=== PATIENT | male | born 1960 | race Caucasian/White ===

== ENCOUNTER 2017-01-09 09:38 | Day surgery (SDC) | payer OTHER ==
[2017-01-09] VITALS (7 sets, daily range): BP systolic 115–133; BP diastolic 75–80; PULSE 60–72; TEMP 36.4–37.2; O2SAT 93–97; Ht 177.8 cm; Wt 70.4 kg
[~2017-01-09] VITALS: Ht 177.8 cm; Wt 70.4 kg
--- NOTE | 2017-01-09 08:36 | History and Physical ---
History & Physical Date of Service Jan 09, 2017. History & Physical CC: Severe claudication of the left lower extremity HPI: [facility] Mr. Rajiv Van is being followed for his peripheral arterial disease, and he underwent a right common femoral endarterectomy in March 2006 due to rest pain in his right lower extremity. He returns today for a routine 6-month followup with ultrasound. 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 He does state that he continues to have 60-yard claudication in his left leg where he can walk for about 60 yards and then walk a little bit after this, but then has to rest for about 20-30 minutes before his calf stops causing him pain. He states this is interfering with his activities of daily living. He denies any rest pain or tissue loss. He denies any stroke or TIA like symptoms. He denies any new abdominal or back pain. ALLERGIES: None known. MEDICATIONS: Positive for aspirin, indomethacin, lisinopril, Nexium, Norvasc, tramadol, Tricor. PAST MEDICAL HISTORY: Positive for coronary occlusive disease with coronary artery stenting, stroke, hypertension. PAST SURGICAL HISTORY: Cardiac stenting. FAMILY HISTORY: Positive for heart disease, diabetes, cancer and stroke. SOCIAL HISTORY: He quit smoking in November of this year. He drinks occasionally. REVIEW OF SYSTEMS: Review of 10 systems was asked. Positive findings included intolerance to heat, occasional chest pain, shortness of breath, gout, heartburn , loss of appetite, hiatal hernia, constipation and occasional blood in the stool. The rest of the positive findings are in the HPI. On physical exam, vital signs, heart rate is 58, blood pressure is 134/88, respiratory rate is 18. This is a 56-year-old male, in no acute distress. Head is normocephalic, atraumatic. Extraocular movements are intact. Heart has regular rate and rhythm. Lungs: Clear to auscultation. Abdomen: Soft, nontender, nondistended. He has palpable bilateral femoral pulses, right greater than left. He has nonpalpable distal pulses. He has dopplerable PT and AT, though the left side is weaker than the right. No focal deficits. Imp: Left superficial femoral artery occlusion Severe claudication left leg Plan: Patient is admitted for arteriography and possible intervention. I have discussed the risks options and benefits of the procedure with the patient. The patient understands the risks options and benefits and agrees to the procedure.
[~2017-01-09 09:38] MED LIST: AMLO-110 PO; CEFAZOLIN 1000MG/55 ML D5W IV SCH; FENO145T26 PO; LISI20TA3 PO; OMEP40CA PO; OXYC5TAB PO; SODIUM CHLORIDE 0.9% 1000ML IV SCH; TRAM-10 PO
[2017-01-09] MEDS ORDERED: NIFE60TA57 PO (10:31)
[2017-01-09 11:09] LABS: CREATININE 1.5 mg/dl (0.60-1.40)
[2017-01-09] MEDS ORDERED: FENTANYL CITRATE INJ 50 MCG/1 ML 2 ML VIAL ONE ×2 (12:24→13:55)
[2017-01-09] MEDS ORDERED: MIDAZOLAM HCL 1 MG/ML 2ML VIAL ONE ×2 (12:25→13:49)
--- NOTE | 2017-01-09 12:38 | Procedure Note ---
Pre-Mod Sedation Assessment General Date of Moderate Sedation: Jan 09, 2017. Vital Signs: Vital Signs Past 12 Hours Date Time Temp Pulse Resp B/P (MAP) Pulse Ox O2 Delivery O2 Flow Rate FiO2 01/09/17 12:34 37.2 72 20 115/80 97 Room Air 01/09/17 10:35 37.2 72 20 115/80 (92) 97 Room Air Pre-Sedation Airway Assessment Oral Cavity: Loose Teeth, Dentures Short Thick Neck: No Hx of Sleep Apnea: No Smoking Status: Former Smoker Mallampati Classification: Class I ASA Classification: Class III Notes The planned sedation has been discussed with the patient and consent obtained. I have identified the patient, determined the appropriateness of sedation and have assessed the patient immediately prior to the procedure. All medicine(s) and interventions are by my order.
--- NOTE | 2017-01-09 12:38 | History & Physical Bridge Note ---
H&P Re-Evaluation Bridge Note: I have examined the patient, reviewed the History & Physical and in the interval since the performance of the History & Physical I have noted the following changes of clinical significance: No changes noted
[2017-01-09] MEDS ORDERED: HEPARIN SOD (PORCINE) 1000 UNIT/ML 10 ML VIAL ONE (12:41)
[2017-01-09] MEDS ORDERED: MIDAZOLAM HCL 1 MG/ML 2ML VIAL IV ONE ×3 (12:56→13:48)
[2017-01-09] MEDS ORDERED: FENTANYL CITRATE INJ 50 MCG/1 ML 2 ML VIAL IV ONE ×3 (12:56→13:57)
[2017-01-09] MEDS ORDERED: LIDOCAINE HCL 1% 20 ML VIAL INJ ONE (13:00)
[2017-01-09] MEDS ORDERED: HEPARIN SOD (PORCINE) 1000 UNIT/ML 10 ML VIAL IV ONE (13:16)
[2017-01-09] MEDS ORDERED: CLOPIDOGREL BISULFATE 300 MG TAB PO STA (14:07)
[2017-01-09] MEDS ORDERED: CLOP1TAB5 PO (14:09)
[2017-01-09] MEDS ORDERED: IODIXANOL (VISIPAQUE) 270 MG/ML 150ML FLUSH ONE (14:11)
[2017-01-09] MEDS ORDERED: OXYCODONE/ACETAMINOPHEN 5-325 TAB PO PRN (14:15)
--- NOTE | 2017-01-09 14:31 | Procedure Note ---
Post-Moderate Sedation Plan General Date of Moderate Sedation Jan 09, 2017. Vital Signs: Vital Signs Past 12 Hours Date Time Temp Pulse Resp B/P (MAP) Pulse Ox O2 Delivery O2 Flow Rate FiO2 01/09/17 12:34 37.2 72 20 115/80 97 Room Air 01/09/17 10:35 37.2 72 20 115/80 (92) 97 Room Air Review - Discharge Plan Post Moderate Sedation Plan: On clinical assessment, the patient appears to have tolerated the conscious sedation without complications. Patient is recovering as anticipated. Patient will continue to be monitored by nursing and may be discharged when conscious sedation discharge criteria are met.
--- NOTE | 2017-01-09 14:31 | [facility] Post Operative Brief Note ---
Immediate Operative Summary Operative Date Jan 09, 2017. Pre-Operative Diagnosis left superficial femoral artery occlusion Post-Operative Diagnosis same Procedure(s) Performed Left Lower Extremity Angiogram, Percutaneous Transluminal Angioplasty Left Superficial Femoral Artery, Moderate Concious Sedation [address] Castrejon Instrument Assembler Surgeon(s) Calderon Griggs MD 5th vascular surgery resident Estimated Blood Loss 10 ml Findings palp PT post CLINIC SPECIALIST Specimens none Anesthesia Local with sedation Complication(s) None Disposition
--- NOTE | 2017-01-09 14:32 | Discharge Instructions ---
Discharge Instructions Date of Service Jan 09, 2017. Visit Reason for Visit: Left Lower Extremity Claudication Discharge Discharge Diagnosis / Problem: Left superficial femoral artery occlusion Discharge Goals Goal(s): Therapeutic intervention Activity Recommendations Activity Limitations: per Instructions/Follow-up section Anesthesia . Post Anesthesia Instructions: If you have had General Anesthesia or IV Sedation: * Do not drive today. * Resume driving when surgeon permits. * Do not make important decisions or sign legal documents today. * Call surgeon for: 1. Temperature elevations greater than 101 degrees F. 2. Uncontrollable pain. 3. Excessive bleeding. 4. Persistent nausea and vomiting. 5. Medication intolerance (nausea, vomiting or rash). * For nausea and vomiting use only clear liquids such as: tea, soda, bouillon until nausea subsides, then gradually increase diet as tolerated. * If you have any concerns or questions, call your surgeon's office. If physician is unavailable and it is an emergency, call 911 or go to the nearest emergency room. . Instructions / Follow-Up Instructions / Follow-Up Call [phone] to schedule a follow up appointment if one not already scheduled. SPECIAL CARE INSTRUCTIONS: Medications: * Continue to take your medications as directed. If you have been given a prescription for Plavix, please fill it immediately and take as directed. Incision Care: * Your puncture site may have some bruising and minor swelling for about one week. * You will have a small dressing covering your puncture site. You may remove the dressing after 24 hours and shower. You may let the warm soapy water run over it, but be sure to dry the puncture site well and keep it dry. * DO NOT IMMERSE THE INCISION IN A TUB/POOL/etc. UNTIL HEALED. * Puncture sites should be kept covered with a band-aid until it begins to heal. Restrictions: * Depending on whether you leg or arm was punctured to access the arteries, you will be required to lay flat, hold your arm still, or both, for about 4 hours after the procedure to prevent bleeding. * Limit your activity for the first 48 hours. You may walk and go up and down steps. Avoid excessive bending or movement at the puncture site. Possible Complications: * Excessive Swelling - after blood flow is improved you may notice increased swelling in the lower legs. This is a normal response. This usually depends on the amount of blockages in the leg, how long they have been there prior to your procedure and how much blood flow was restored. Elevating your legs will help to improve this. Please notify our office ([phone] ) if the swelling does not go away after lying in bed overnight. * Infection/Drainage/Bleeding - Drainage or bleeding from the puncture site should be minimal. If you have excessive bleeding or drainage, call our office ([phone]) right away. * Pain - You may experience some mild pain or soreness at your puncture site. If your pain does not improve, please contact our office ([phone]). Call your doctor and seek emergent treatment if you develop: * Temperature above 101 degrees * Any fever or chills * Any redness or purulent drainage from the puncture site * Any new dusky/blue colored toes or feet with coolness or sharp or aching pain. SKIN IRRITATION: * You may experience some redness and/or swelling in the area where radiation was administered. If any skin irritation occurs, please contact your family physician. FOLLOW UP VISIT: Keep any scheduled doctor appointments. Diet Recommendations Recommended Home Diet: resume previous diet Procedures Procedures Performed: Left Lower Extremity Angiogram, Percutaneous Transluminal Angioplasty Left Superficial Femoral Artery, Moderate Concious Sedation 1256 to 1424 Pending Studies Studies pending at discharge: no Medical Emergencies . Who to Call and When: Medical Emergencies: If at any time you feel your situation is an emergency, please call 911 immediately. . Non-Emergent Contact Non-Emergency issues call your: Surgeon . . "Provider Documentation" section prepared by Efren Castrejon. .
--- NOTE | 2017-01-09 15:07 | DIAGNOSTIC IMAGING REPORT ---
DATE OF PROCEDURE: 01/09/2017 PREOPERATIVE DIAGNOSIS: Left lower extremity claudication. POSTOPERATIVE DIAGNOSIS: Same. PROCEDURE: 1. Ultrasound guided access of the right femoral artery. 2. Left lower extremity angiogram. 3. SFA angioplasty with 6 x 40 mm balloon and 7 x 80 mm balloon. 4. Conscious sedation for 86 minutes . SURGEON: Dr. Efren Castrejon. LYE PEEL OPERATOR: Dr. Jessica Griggs. ANESTHESIA: Local plus conscious sedation. ESTIMATED BLOOD LOSS: 10. IV FLUIDS: 400. URINE OUTPUT: Not recorded. CONTRAST: 48 mL. Milligray 75. Fluoro time 9.3 minutes. COMPLICATIONS: None apparent. CONDITION: Stable to PACU. INDICATIONS: Mr. Van is a very pleasant 56-year-old male who presented to the office with complaints of left lower extremity claudication interfering with his daily activities. He underwent a duplex which showed SFA disease. He was advised of the risks and benefits of undergoing an angiogram and agreed to undergo procedure. PROCEDURE: The patient was brought into the operative suite. He was prepped and draped in the usual fashion. A timeout occurred. Ultrasound was used to identify his common femoral artery. This was widely patent. This was accessed percutaneously under ultrasound guidance. A 5 Turkmen sheath was then placed and an angled Glidewire and rim catheter were used to cross the bifurcation. Left lower extremity angiogram was obtained showing widely patent left common iliac, left internal and external iliac, left common femoral artery. There were was an area of focal stenosis proximally and distally and a focal occlusion in the mid SFA. The popliteal artery was patent. TP trunk was patent. Anterior tibial artery occluded proximally. PT arteries main runoff to the foot. At this time, the patient was heparinized with 5000 units of heparin and the sheath was upsized for a 6 45 mm destination sheath. A 6 x 40 balloon was used to angioplasty despite stenosis in the SFA. This resulted in improvement of the flow and resolution of the distal stenosis. There was still some residual stenosis in the proximal part of the SFA and a 7 x 80 balloon was used to angioplasty these. Upon completion, there was brisk flow through the SFA. Small dissection noted in the mid SFA, but not flow limiting and brisk flow distally. At this time, an ACT was obtained which demonstrated an ACT of 158. All sheaths and wires were removed and pressure was held for 15 minutes and hemostasis was obtained. The patient tolerated the procedure well and was transferred to the PACU in stable condition. Dr. Efren Castrejon was present for the entirety of this case. I, Dr. Castrejon was present and scrubbed for the entire procedure. LUCÍA
== END 2017-01-09 17:02 | disposition home or self-care (01) ==
LOC: C.ACU 09:38
PROVIDERS: ATTEND Surgery Vascular Surgery
DX: I77.1 Stricture of artery (principal); I73.9 Peripheral vascular disease, unspecified; I25.10 Atherosclerotic heart disease of native coronary artery without angina pectoris; Z95.818 Presence of other cardiac implants and grafts; I10 Essential (primary) hypertension; Z86.73 Personal history of transient ischemic attack (TIA), and cerebral infarction without residual deficits; Z79.82 Long term (current) use of aspirin; Z87.891 Personal history of nicotine dependence

== ENCOUNTER 2020-12-05 06:19 | Inpatient (IN) ==
--- NOTE | 2020-11-29 14:09 | PAT Medication Instructions ---
Medication Instructions Date of Service November 29, 2020 Home Medications Marijuana 1 inh INHALATION DAILY Vitamin D 1 tab PO QAM atorvastatin 40 mg tablet (Lipitor) 40 mg PO QAM clopidogrel 75 mg tablet (Plavix) 75 mg PO QAM lisinopril 2.5 mg tablet 2.5 mg PO QAM pantoprazole 20 mg tablet,delayed release 20 mg PO DAILY PRN ASK your prescriber and surgeon clopidogrel 75 mg tablet (Plavix) 75 mg PO QAM DO NOT take the morning of surgery Marijuana 1 inh INHALATION DAILY Vitamin D 1 tab PO QAM lisinopril 2.5 mg tablet 2.5 mg PO QAM Take morning of surgery With a small sip of water, OTHERWISE NOTHING TO EAT OR DRINK AFTER MIDNIGHT: atorvastatin 40 mg tablet (Lipitor) 40 mg PO QAM pantoprazole 20 mg tablet,delayed release 20 mg PO DAILY PRN (if needed) Other Notes If you have any questions please call us at [phone] or [phone] or or [phone]
--- NOTE | 2020-12-03 15:48 | Anesthesiology Consultation ---
Date of Service December 03, 2020 Assessment & Plan (1) Encounter for pre-operative examination: - COVID screening: Per assessment on 12/03: Travel screen negative, no known COVID-19 positive contacts or current COVID-19 related symptoms. Surgeon arrang ed preop COVID testing (being done at [facility] 12/03). Awaiting results. - Plavix instructions per surgeon/prescriber - ETOH use: 4-5 beers/day (typically afternoon/night) Chart Review Chart Review: Acceptable Risk for Surgery and Patient seen in Pre Admission Testing Teaching & Discussion Pre-Anesthesia Teaching/Discussion Notes: Instructed NPO after midnight before surgery,except medications with 15 cc of water. Medication instructions pr ovided according to the [facility] guidelines. History Surgery Operation Date: 12/05/20 12:10 Proposed Procedures p Left Common Femoral Artery Endarterectomy ULTRASOUND TECH Stent Bilateral Iliac Arteries, Arteriogram Bilateral Lower Ext. With Possible Iliac Intervention - Efren Castrejon MD Height/Weight Height: 5 ft 10 in Weight: 72.5 kg Allergies Allergy/AdvReac Type Severity Reaction Status Date / Time No Known Allergies Allergy Verified 11/28/20 13:11 Medications Home Medications Medication Instructions Recorded Confirmed Last Taken Marijuana 1 inh INHALATION DAILY 11/28/20 11/28/20 Unknown Vitamin D 1 tab PO QAM 11/28/20 11/28/20 Unknown atorvastatin 40 mg tablet (Lipitor) 40 mg PO QAM 11/28/20 11/28/20 Unknown clopidogrel 75 mg tablet (Plavix) 75 mg PO QAM 11/28/20 11/28/20 Unknown lisinopril 2.5 mg tablet 2.5 mg PO QAM 11/28/20 11/28/20 Unknown pantoprazole 20 mg tablet,delayed 20 mg PO DAILY PRN 11/28/20 11/28/20 Unknown release Past Medical History Medical History CAD (coronary artery disease) stents x2 2006 (LIZ tp Lcx, POM3) stents x1 2008 (mid OM3) No longer following with cardio, good functional status at [facility] visit 12/03/20 with no cardiopulmonary complaints and recent echo done 07/2020 GERD (gastroesophageal reflux disease) Controlled Gout Hx Hyperlipidemia Hypertension LBBB (left bundle branch block) Chronic dating back to at least 03/24/2016 EKG (scanned into [employer]), Moderate IVCD noted on 08/07/15 with unremarkable echo/stress testing 08/08/15 Exercise / Class Metabolic Activity II 4-5 Yardwork/Stairs/Walk up hill (one FS (no CP, no SOB)) Past Family History Family History Father Family history of diabetes mellitus Uncle Family hx of colon cancer Past Surgical History Surgical History History of cardiac cath Stents x 3 total (stent x1- 2008, stents x2- 2006) History of cataract surgery R/L History of colonoscopy History of esophagogastroduodenoscopy (EGD) History of vascular surgery RLE (2015) Past Anesthesia History No Family Hx of Anesthesia Complications and Other (Post-op urinary retention with remote surgery requiring temporary catheter) History of PONV No Hx of PONV and No Hx of Motion Sickness Social History Smoking Status: Former smoker Do You Dip or Chew Tobacco: No Smoking End Date: Quit 2015 Hx Alcohol Use: Yes Alcohol type: beer alcohol intake frequency: 3 or more drinks per day (4-5 beers/day (typically afternoon/night)) Hx Substance Use: Yes substance use type: marijuana (Occasionally + weekends (inhalation)) Review of Systems Patient denies chest pain, shortness of breath, dyspnea on exertion, fever, chills, cough, wheezing, palpitations. Physical Exam Vital Signs VITALS BP 143/89 P 76 TEMP 98.1 SP02 96%RA RESP 18 PHYSICAL Full cervical extension range of motion. Full TMJ range of motion. TMD 4 finger breaths Mallampati Score 3 Dentition: + dentures, no edentulous Lungs: clear throughout to auscultation Cardiac: regular rate and rhythm, no murmurs noted Spine: normal Carotid arteries: negative bruit Extremities: no edema Lab Results Anesthesia Preop Results Results Anesthesia Widget: WBC 5.95 K/uL (4.8-10.8) 12/03/20 Hgb 14.0 g/dL (14.0-18.0) 12/03/20 Hct 41.2 % (42-52) L 12/03/20 Plt 210 K/uL (130-400) 12/03/20 Na 132 mmol/L (136-145) L 12/03/20 K 3.8 mmol/L (3.5-5.1) 12/03/20 Cl 100 mmol/L (98-107) 12/03/20 CO2 20 mmol/L (21-32) L 12/03/20 BUN 16 mg/dl (7-18) 12/03/20 Creat 1.11 mg/dl (0.6-1.4) 12/03/20 Glucose Level 108 mg/dl (70-99) H 12/03/20 PT 10.9 Seconds (9.0-12.0) 12/03/20 PTT 27.1 Seconds (21.0-31.0) 12/03/20 INR 1.1 (0.9-1.1) 12/03/20 Blood Type A Positive 12/03/20 Antibody Screen NEGATIVE 12/03/20 Testing Electrocardiogram Date: 12/03/20 NSR at 71bpm. NS IVCD. unconfirmed report. Hx of LBBB dating back to at least 03/24/16 EKG. Also noted on 06/2020 EKG from PCP (scanned into [employer]). Pt had subsequent unremarkable echo 07/25/20. Chest X-Ray Date: 12/03/20 Findings: + NAD Echocardiogram Date: 07/25/20 EF 55 to 60%. No chamber enlargement. Diastolic Doppler mitral inflow patterns consistent with abnormal relaxation. No significant valvular disease. Mild concentric LVH. Stress Test Date: 08/08/15 No stress EKG/ECHO induced ischemic changes. EF 40%.
[~2020-12-05 06:19] MED LIST changes: -AMLO-110 PO; +CEFAZOLIN 1,000 MG/7.5 ML SYR IV SCH; -CEFAZOLIN 1000MG/55 ML D5W IV SCH; -FENO145T26 PO; -LISI20TA3 PO; -OMEP40CA PO; -OXYC5TAB PO; -SODIUM CHLORIDE 0.9% 1000ML IV SCH; -TRAM-10 PO
[2020-12-05] MEDS ORDERED: SUGAMMADEX SODIUM 200 MG/2 ML VIAL IV ONE (06:31)
--- NOTE | 2020-12-05 07:19 | History & Physical Report ---
Date of Service December 05, 2020 Assessment & Plan (1) Claudication in peripheral vascular disease: Plan: Patient for a left femoral endarterectomy with possible iliac stenting. I have discussed the risks options and benefits of the procedure with the patient. The patient understands the risks options and benefits and agrees to the procedure. History of Present Illness Chief Complaint: Significant claudication of both lower extremities Primary Care Provider: Mckay Marin This is a very pleasant 60-year-old gentleman with a history of right common femoral endarterectomy back in 2017. He presents for followup and to discuss the findings of his CT angio of abdomen and pelvis with runoff to the legs. He indicates that he continues to have short distance claudication affecting mostly the calves, but also the thighs and buttocks of the bilateral legs. His symptoms come on after just a few minutes of walking on flat surfaces. If he is climbing, the symptoms come on sooner. These are affecting him to an extent that they are prohibiting him from completing activities that he would like to do in his life. He also describes some chronic numbness and feeling as though his feet are in ice blocks. This is affecting the bilateral feet. He has no weakness of the bilateral feet. He has had no wounds of the bilateral feet. He continues to take Plavix. Allergies Allergy/AdvReac Type Severity Reaction Status Date / Time No Known Allergies Allergy Verified 11/28/20 13:11 Home Medications Medication Instructions Recorded Confirmed Type Marijuana 1 inh INHALATION DAILY 11/28/20 11/28/20 History Vitamin D 1 tab PO QAM 11/28/20 11/28/20 History atorvastatin 40 mg tablet (Lipitor) 40 mg PO QAM 11/28/20 11/28/20 History clopidogrel 75 mg tablet (Plavix) 75 mg PO QAM 11/28/20 11/28/20 History lisinopril 2.5 mg tablet 2.5 mg PO QAM 11/28/20 11/28/20 History pantoprazole 20 mg tablet,delayed 20 mg PO DAILY PRN 11/28/20 11/28/20 History release Past Med/Surg History Medical History CAD (coronary artery disease) stents x2 2006 (LIZ tp Lcx, POM3) stents x1 2008 (mid OM3) No longer following with cardio, good functional status at PAT visit 12/03/20 with no cardiopulmonary complaints and recent echo done 07/2020 GERD (gastroesophageal reflux disease) Controlled Gout Hx Hyperlipidemia Hypertension LBBB (left bundle branch block) Chronic dating back to at least 03/24/2016 EKG (scanned into [employer]), Moderate IVCD noted on 08/07/15 with unremarkable echo/stress testing 08/08/15 Surgical History History of cardiac cath Stents x 3 total (stent x1- 2008, stents x2- 2006) History of cataract surgery R/L History of colonoscopy History of esophagogastroduodenoscopy (EGD) History of vascular surgery RLE (2015) Family History Father Family history of diabetes mellitus Uncle Family hx of colon cancer Social History Smoking Status: Former smoker Smoking End Date: Quit 2015; Second Hand Exposure: Yes (MOTHER SMOKED); Do You Dip or Chew Tobacco: No; Hx Alcohol Use: Yes Alcohol type: beer Hx Substance Use: Yes Substance Use Type Other:: INHALATION ON WEEKENDS AND DAILY ON OCC Preferred Language: Nepalese Communication Ability: Effective Anger Control Counselor Required: No Beliefs That Will Affect Care: None Current Living Situation: Alone current occupational status: disabled Other Information That Helps Us Care for You: No Feels Safe at Home: Yes Safety Concerns: Feels Safe At This Time Assistive Devices: Denture - Upper Assistive Devices Comment: NO LOWER TEETH Review of Systems All systems reviewed & are unremarkable except as noted in HPI & below Physical Exam Constitutional: WD/WN, vitals as above Respiratory: normal respiratory effort, lungs clear to auscultation Cardiovascular: RRR, no murmur, no edema There is a palpable femoral pulse, which is normal. On the left, there is a faintly palpable femoral pulse. Distally, his pedal pulses are nonpalpable. I am able to obtain bilateral posterior tibial artery signals. He has aforementioned chronic numbness of bilateral feet. Motor is intact in bilateral lower extremities. There are no wounds to the bilateral feet. Gastrointestinal (Abdomen): Inspection/Auscultation: abdomen normal to inspection; abdomen not distended Percussion/Palpation: abdomen soft; abdomen nontender Musculoskeletal: no cyanosis or clubbing, extremities motor strength 5/5 Neurologic: CN's II-XI intact bilaterally and moves all extremities Psychiatric: Orientation: alert and oriented x 3
[2020-12-05] MEDS: LACTATED RINGER'S 1,000 ML IV SCH ×3 (07:53→18:39)
[2020-12-05] MEDS ORDERED: DEXAMETHASONE SOD INJ 4 MG/ML VIAL ONE (09:07)
[2020-12-05] MEDS ORDERED: ROCURONIUM BROMIDE 10 MG/ML 5 ML VIAL IV ONE ×5 (09:07→14:10)
[2020-12-05] MEDS ORDERED: ONDANSETRON INJ 2 MG/ML 2 ML VIAL ONE (09:07)
[2020-12-05] MEDS ORDERED: fentaNYL citrate 100 MCG/2 ML VIAL ONE ×2 (09:07→12:29)
[2020-12-05] MEDS ORDERED: HEPARIN SOD (PORCINE) 1000 UNIT/ML ONE (09:07)
[2020-12-05] MEDS ORDERED: PROPOFOL IV EMULSION 10 MG/ML 20 ML VIAL IV ONE (09:07)
[2020-12-05] MEDS ORDERED: ONDANSETRON INJ 2 MG/ML 2 ML VIAL IV PRN ×2 (09:30→14:57)
[2020-12-05] MEDS ORDERED: LABETALOL HCL IV 5 MG/ML 20ML IV PRN (09:30)
[2020-12-05] MEDS ORDERED: ATROPINE SULFATE 0.1 MG/ML 10ML SYR IV PRN (09:30)
[2020-12-05] MEDS ORDERED: HYDROmorphone INJ 1 MG/ML SYRINGE IV PRN (09:30)
--- NOTE | 2020-12-05 11:10 | History & Physical Bridge Note ---
Date of Service December 05, 2020 History & Physical Bridge Note I have examined the patient, reviewed the History & Physical and in the interval since the performance of the History & Physical I have noted the following changes of clinical significance: no changes noted
[2020-12-05] MEDS ORDERED: HEPARIN (PORCINE) 1000 UNIT/ML 10 ML (CATH LAB USE ONLY) ONE (11:20)
[2020-12-05] MEDS ORDERED: GELATIN SPONGE SZ 100 ONE (11:20)
[2020-12-05] MEDS ORDERED: THROMBIN FOR SOLN 20000 UNIT KIT ONE (11:20)
[2020-12-05] MEDS ORDERED: PAPAVERINE HCL INJ 30 MG/ML 2 ML VIAL ONE (11:21)
[2020-12-05] MEDS ORDERED: EPINEPHrine INJ 1 MG/ML AMP ONE (11:21)
[2020-12-05] MEDS ORDERED: BUPIVACAINE 0.5 % 5 MG/1 ML MPF 30ML VIAL ONE (11:21)
[2020-12-05] MEDS ORDERED: LIDOCAINE 1% LOCAL 20 ML VIAL ONE (11:21)
[2020-12-05] MEDS ORDERED: LABETALOL HCL IV 5 MG/ML 20ML IV ONE (13:00)
[2020-12-05] MEDS ORDERED: PHENYLEPHRINE HCL 10 MG/ML VIAL ONE (13:16)
[2020-12-05] MEDS ORDERED: ePHEDrine sulfate 50 MG/ML SYR ONE (13:16)
[2020-12-05] MEDS ORDERED: VISIPAQUE IV ONE (14:18)
--- NOTE | 2020-12-05 14:42 | Procedure Note ---
Angiogram Post Procedure Fluoroscopy Time (minutes): 0.5 Radiation (mGy): 36.87 Post Operative Report Pre & Post Diagnosis Operation Date: 12/05/20 09:50 Pre-Op Diagnosis: Left Common Femoral Artery Stenosis, Claudication in peripheral vascular disease Post-Op Diagnosis: Left Common Femoral Artery Stenosis, Claudication in peripheral vascular disease I identified the patient and participated in the time-out.: Yes Procedure Operation Date: 12/05/20 09:50 Actual Procedures p Left Common Femoral Artery Endarterectomy with bovine patch, Arteriogram Bilateral Lower femoral (Left) - Efren Castrejon MD Surgeon Efren Castrejon MD [employer] Martha Caal MD ; Ashly Min PA-C Estimated Blood Loss 30 Findings See Below Specimens Left femoral plaque Drains None Anesthesia Type General Complications None immediate Disposition Accompanied Patient To Recovery: No Indications This is a 60-year-old male with peripheral arterial disease, previous right common femoral endarterectomy performed in 2017, and lifestyle limiting bilateral lower extremity claudication which is worse on the left. CT angiography performed preoperatively is notable for significant left common femoral artery stenosis, with atherosclerotic plaque noted in the bilateral external iliac arteries. He presents today for left common femoral endarterectomy and aortoiliac angiography with possible endovascular intervention. Description of Procedure The patient was taken to the operating suite. The patient's identity and surgical procedure were verified. The patient was transferred over to the operating room table and placed in the supine position. The bilateral groins were prepped and draped in the usual sterile fashion. A team timeout was performed including confirmation of the patient's identity, surgical site, and surgical procedure. A longitudinal incision was made in the left groin over the area of the palpable calcified femoral artery. The incision was deepened through the subcutaneous tissue. The left femoral artery was identified and dissected out. Also dissected out were the proximal superficial femoral artery and the origin of the profunda femoris artery. Proximally, our dissection extended to the distal external iliac artery which was visible with retraction of the inguinal ligament; the inguinal ligament remained intact throughout. There was dense calcific plaque through the entirety of the common femoral artery but we dissected out softer areas to clamp in the distal external iliac artery and the superficial femoral artery. Systemic heparinization was performed. Vascular clamps were applied to the distal external iliac artery, superficial femoral artery, and profunda femoris arteries. Branches of the common femoral artery and superficial femoral artery were controlled with silastic vessel loops. A longitudinal arteriotomy was made on the anterior surface of the common femoral artery with 11-blade. This was extended proximally and distally with Joseph scissors. Dense calcific plaque was encountered which was significantly narrowing the lumen of the vessel, in some areas about 80% stenosis but through most of the common femoral artery about 90% stenosis. Using sharp and blunt dissection a plane was created between the plaque and the adventitia of the vessel. The plaque was removed, with some eversion endarterectomy of the origins of the branches of the common and superficial femoral artery and the origin of t he profunda femoris artery. Proximally the bulk of the plaque was removed such that there was no flow-limiting stenosis at the inflow vessel (the distal external iliac artery). The plaque was transected here and distally in the superficial femoral artery. The endarterectomy flap was tacked down at its distal endpoint using interrupted 6-0 prolene sutures. The interior surface of the vessel was irrigated with heparin saline and all loose debris were removed. A bovine pericardial patch was sewn in place using 5-0 prolene in a running fashion. The clamps were removed. Next, a 17G needle was used to access the center of our patch in a retrograde fashion. A J-wire was advanced through the needle. The needle was removed and a 5F sheath was passed over the wire. An angled glidewire was passed under fluoroscopic guidance into the distal aorta. A rim catheter was advanced over the wire. The wire was removed and with hand injection of contrast, AP, AGGARWAL, and GEORGE views were obtained of the distal aorta and bilateral iliacs in their entirety were imaged with angiography. No flow-limiting stenoses of the iliacs were identified. Thus we did not intervene further. Our sheath and catheter were removed from the patch and the access site was repaired with a 5-0 prolene suture. Adequate hemostasis was obtained. The incision was closed with 2-0 vicryl for the subcutaneous tissue, 3-0 vicryl for the dermis, and jamel for the skin. At the conclusion of the case, all instrument, sponge, and needle counts were correct. The patient tolerated the procedure well and without immediate complication. The patient was taken to the recovery room in satisfactory condition. Dr. Castrejon was present and scrubbed for the entirety of the procedure. I attest to the content of the Intraoperative Record and any orders documented therein. Any exceptions are noted below.
[2020-12-05] MEDS ORDERED: MoRPHine SULFATE 4 MG/ML 1 ML CARP\\VIAL IV PRN (14:57)
[2020-12-05] MEDS ORDERED: oxyCODONE/ACETAMINOPHEN 5mg/325mg TAB PO PRN (14:57)
[2020-12-05] MEDS ORDERED: PANTOprazole 40 MG TAB PO PRN (15:03)
--- NOTE | 2020-12-05 15:06 | Post Operative Brief Note ---
Immediate Post Op Note v1 Date of Surgery December 05, 2020 Pre & Post Diagnosis Operation Date: 12/05/20 09:50 Pre-Op Diagnosis: Left Common Femoral Artery Stenosis, Claudication in peripheral vascular disease Post-Op Diagnosis: Left Common Femoral Artery Stenosis, Claudication in peripheral vascular disease I identified the patient and participated in the time-out.: Yes Procedure Operation Date: 12/05/20 09:50 Actual Procedures p Left Common Femoral Artery Endarterectomy with bovine patch, Arteriogram Antonio ateral Lower femoral (Left) - Efren Castrejon MD Surgeon Efren Castrejon MD [employer] Martha Caal MD ; Ashly Min PA-C Estimated Blood Loss 30 Findings Consistent with Post-Op Diagnosis Drains Humphries Catheter Anesthesia Type General Complications none Disposition Accompanied Patient To Recovery: No Disposition: Recovery Room
--- NOTE | 2020-12-05 15:31 | Anesthesiology Progress Note ---
Date of Service December 05, 2020 Anesthesia Post Procedure Vital Signs Vital Signs: Temp Pulse Pulse Resp BP BP Pulse Ox 12/05/20 15:25 70 16 120/79 97 12/05/20 15:15 72 17 124/76 98 12/05/20 15:05 75 18 119/77 97 12/05/20 14:58 36.4 C L 78 18 126/79 97 12/05/20 07:54 37.2 C 84 20 177/105 H 154/98 H 100 Transfer of Care Handoff Completed per policy Notes Mental Status: alert / awake / arousable and participated in evaluation Patient Amnestic to Procedure: Yes Nausea / Vomiting: adequately controlled Pain: adequately controlled Airway Patency, RR, SpO2: stable & adequate BP & HR: stable & adequate Hydration State: stable & adequate Anesthetic Complications: no major complications apparent and Pt Satisfied with anesthetic care
[2020-12-05] MEDS: ceFAZolin 1000MG 1,000 MG/7.5 ML SYR IV SCH (18:57)
[2020-12-06] MEDS: LACTATED RINGER'S 1,000 ML IV SCH (00:24)
[2020-12-06] MEDS: ceFAZolin 1000MG 1,000 MG/7.5 ML SYR IV SCH (00:28)
[2020-12-06 06:09] LABS: Basophils # (auto) 0.02 K/uL (0-0.2); Basophils % (auto) 0.2 %; Eosinophils # (auto) 0.01 K/uL (0-0.5); Eosinophils % (auto) 0.1 %; Hematocrit (blood only) 38.1 % (42-52); Hemoglobin 12.5 g/dL (14.0-18.0); Immature Granulocytes # (auto) 0.04 K/uL (0.00-0.02); Immature Granulocytes % (auto) 0.5 %; Lymphocytes # (auto) 1.03 K/uL (1.2-3.4); Lymphocytes % (auto) 12.7 %; Mean Corpuscular Hemoglobin 28.7 pg (25-34); Mean Corpuscular Hgb Conc 32.8 g/dL (32-36); Mean Corpuscular Volume 87.4 fL (80-100); Mean Platelet Volume 9.3 fL (7.4-10.4); Monocytes % (auto) 9.8 %; Neutrophils # (auto) 6.24 K/uL (1.4-6.5); Neutrophils % (auto) 76.7 %; Platelet Count 176 K/uL (130-400); RDW Coefficient of Variation 14.3 % (11.5-14.5); RDW Standard Deviation 45.3 fL (36.4-46.3); Red Blood Count 4.36 M/uL (4.7-6.1); White Blood Count 8.14 K/uL (4.8-10.8)
[2020-12-06 06:47] LABS: BUN Creatinine Ratio 14.8 (10-20); Calcium 9.1 mg/dl (8.5-10.1); Creatinine Clr Calc Pharmacy 69.4 ml/min; Est GFR (African American) 80.3 ml/min; Est GFR (Non-African American) 69.3 ml/min; Potassium 4.2 mmol/L (3.5-5.1)
[2020-12-06] MEDS ORDERED: CLOPIDOGREL BISULFATE 75 MG TAB PO SCH (09:00)
[2020-12-06] MEDS ORDERED: lisinopril 2.5 MG TAB PO SCH (09:00)
[2020-12-06] MEDS ORDERED: ATORVASTATIN 40 MG TAB PO SCH (09:00)
[2020-12-06] MEDS ORDERED: CHOLECALCIFEROL 1,000 UNITS 25 MCG TAB PO SCH (09:00)
--- NOTE | 2020-12-06 14:30 | Surgery Progress Note ---
Date of Service December 06, 2020 Assessment & Plan (1) Claudication in peripheral vascular disease: Plan: This patient is postop day 1 after a left common femoral artery endarterectomy. He is doing extremely well. He will be discharged today to self-care at home. Admission and Anticipated Discharge Date Admission Date: December 05, 2020 Subjective Patient has no complaints. He claims his left leg feels much better. Both legs are now normal to him. He does have slight numbness in the balls of both feet which is chronic. Physical Exam Physical Exam: He does have a weakly palpable dorsalis pedis pulse on left foot. He has good capillary refill left foot of left foot is warm. Dressing is intact. The groin itself has no evidence of swelling or erythema. Constitutional: WD/WN, vitals as above Results & Data ([facility]) Vital Signs (Past 12 Hours) Vital Signs Temp Pulse Resp BP Pulse Ox 12/06/20 13:00 37.0 C 92 H 16 136/73 92 12/06/20 12:01 36.6 C 79 16 119/70 95 12/06/20 11:00 37.0 C 83 16 100/64 12/06/20 10:17 36.7 C 80 16 124/77 96 12/06/20 09:00 37.0 C 81 20 135/79 12/06/20 08:19 36.6 C 66 20 148/81 H 98 12/06/20 07:02 36.6 C 65 18 159/89 H 94 12/06/20 06:05 36.6 C 65 20 159/89 H 98 12/06/20 05:07 36.5 C 75 16 131/86 95 12/06/20 03:28 36.7 C 70 16 118/75 96 12/06/20 02:29 36.9 C 73 20 126/80 97
--- NOTE | 2020-12-07 09:03 | Discharge Summary ---
Date of Service December 07, 2020 Admission HPI Per Admitting Provider This is a very pleasant 60-year-old gentleman with a history of right common femoral endarterectomy back in 2017. He presents for followup and to discuss the findings of his CT angio of abdomen and pelvis with runoff to the legs. He indicates that he continues to have short distance claudication affecting mostly the calves, but also the thighs and buttocks of the bilateral legs. His symptoms come on after just a few minutes of walking on flat surfaces. If he is climbing, the symptoms come on sooner. These are affecting him to an extent that they are prohibiting him from completing activities that he would like to do in his life. He also describes some chronic numbness and feeling as though his feet are in ice blocks. This is affecting the bilateral feet. He has no weakness of the bilateral feet. He has had no wounds of the bilateral feet. He continues to take Plavix. Admission Exam Per Admitting Provider Constitutional: WD/WN, vitals as above Respiratory: normal respiratory effort, lungs clear to auscultation Cardiovascular: RRR, no murmur, no edema There is a palpable femoral pulse, which is normal. On the left, there is a faintly palpable femoral pulse. Distally, his pedal pulses are nonpalpable. I am able to obtain bilateral posterior tibial artery signals. He has aforementioned chronic numbness of bilateral feet. Motor is intact in bilateral lower extremities. There are no wounds to the bilateral feet. Gastrointestinal (Abdomen): Inspection/Auscultation: abdomen normal to inspection; abdomen not distended Percussion/Palpation: abdomen soft; abdomen nontender Musculoskeletal: no cyanosis or clubbing, extremities motor strength 5/5 Neurologic: CN's II-XI intact bilaterally and moves all extremities Psychiatric: Orientation: alert and oriented x 3 Principal Diagnosis 1. s/p L common femoral artery endarterectomy with bovine patch and stenting of L common iliac artery 2. L common femoral artery occlusion with claudication Discharge Exam Constitutional WD/WN, vitals as above Respiratory normal respiratory effort, lungs clear to auscultation Cardiovascular RRR, no murmur, no edema Gastrointestinal (Abdomen) Inspection/Auscultation: abdomen normal to inspection; abdomen not distended Percussion/Palpation: abdomen soft; abdomen nontender Musculoskeletal no cyanosis or clubbing, extremities motor strength 5/5 Neurologic CN's II-XI intact bilaterally and moves all extremities Psychiatric Orientation: alert and oriented x 3 Discharge Data Allergies Allergy/AdvReac Type Severity Reaction Status Date / Time No Known Allergies Allergy Verified 12/05/20 07:41 Procedures Performed Operation Date: 12/05/20 09:50 Actual Procedures p Left Common Femoral Artery Endarterectomy with bovine patch, Arteriogram Bilateral Lower femoral (Left) - Efren Castrejon MD Ordered Studies 12/05/20 07:14 EV angio LE BI Routine Hospital Course (1) Claudication in peripheral vascular disease: This patient is postop day 1 after a left common femoral artery endarterectomy. He is doing extremely well. He will be discharged today to self-care at home. Total Time Total Time Spent Total Time Spent (In Minutes): 0 Discharge Plan Discharge Items Patient Disposition: Home - Self-Care Reason For Visit: Left Common Femoral Artery Stenosis, Bilateral Ext Discharge Diagnosis: Left common femoral artery stenosis with claudication Activity: Per Instructions section Bathing: May shower/bathe in 3 days Non-emergency contact: Surgeon Call non-emergency contact if: your temperature is above 101.5, your wound has increased redness, your wound has increased drainage and your wound pain has increased Follow-up/Referrals: Mckay Marin [Primary Care Provider] - Diet: Heart Healthy Addtl Attending Provider Instructions: ACTIVITY RECOMMENDATIONS: See Above SPECIAL CARE INSTRUCTIONS: Call your doctor if: * Temperature above 101 degrees * Pain not relieved by pain medicine ordered * There is increased drainage or redness from any incision * You have any unanswered questions or concerns. Call [phone] to schedule a follow up appointment if one not already scheduled. Pending Studies at Discharge: No Stand-Alone Forms: [facility], Smoking Cessation Medications and DC Order Prescriptions: New oxycodone-acetaminophen [Percocet] 5-325 mg tablet 1 tab PO Q8H PRN (Reason: pain) Qty: 20 RF: 0 Continued atorvastatin [Lipitor] 40 mg Tablet 40 mg PO QAM RF: 0 clopidogrel [Plavix] 75 mg Tablet 75 mg PO QAM RF: 0 pantoprazole 20 mg Tablet,Delayed Release (Dr/Ec) 20 mg PO DAILY PRN (Reason: Acid Reflux) RF: 0 lisinopril 2.5 mg Tablet 2.5 mg PO QAM RF: 0 Vitamin D 1 tab PO QAM RF: 0 Marijuana 1 inh inhalation DAILY RF: 0 Discharge Orders: Discharge Order (Routine); Ordered 12/06/20 Ordered By: Efren Castillo/Other Patient Handouts: DVT Post Op Prevention, Managing Post-Op Pain at Home Admission Data Admit Date/Time: 12/05/20 14:58 Attending Provider: Efren Castrejon Admit Provider: Efren Castrejon Primary Care Provider: Mckay Marin Other Interventions: Discharge Summary Assessment (RN) Last Done: 12/06/20 14:43
== END 2020-12-06 16:44 | disposition home or self-care (01) | DRG 254 ==
LOC: ASU 06:19 → PACUINP 14:58 → 3N 16:48

== ENCOUNTER 2022-12-17 08:50 | Inpatient (IN) ==
--- NOTE | 2022-12-08 15:32 | PAT Medication Instructions ---
Medication Instructions Date of Service December 08, 2022 Home Medications Marijuana 1 inh inhalation DAILY clopidogrel 75 mg tablet (Plavix) 75 mg PO QAM lisinopril 2.5 mg tablet 2.5 mg PO QAM pantoprazole 20 mg tablet,delayed release 20 mg PO QAM atorvastatin 20 mg tablet 20 mg PO QAM sumatriptan succinate 50 mg tablet 50 mg PO UD PRN Migraine Headache aspirin 81 mg tablet,delayed release 81 mg PO QAM ASK your prescriber and surgeon clopidogrel 75 mg tablet (Plavix) 75 mg PO QAM aspirin 81 mg tablet,delayed release 81 mg PO QAM DO NOT take the morning of surgery Marijuana 1 inh inhalation DAILY lisinopril 2.5 mg tablet 2.5 mg PO QAM Take morning of surgery With a small sip of water, OTHERWISE NOTHING TO EAT OR DRINK AFTER MIDNIGHT: pantoprazole 20 mg tablet,delayed release 20 mg PO QAM atorvastatin 20 mg tablet 20 mg PO QAM sumatriptan succinate 50 mg tablet 50 mg PO UD PRN Migraine Headache (if needed) Take evening before surgery sumatriptan succinate 50 mg tablet 50 mg PO UD PRN Migraine Headache (if needed) Marijuana 1 inh inhalation DAILY Other Notes If you have any questions please call us at [phone] or [phone] or [phone] or [phone]
--- NOTE | 2022-12-09 11:30 | Anesthesiology Consultation ---
Date of Service December 09, 2022 Assessment & Plan (1) Encounter for pre-operative examination: - Infectious disease screening: Per assessment on 12/08: No known infectious disease contacts or current infectious disease symptoms. - Heavy ETOH use: Patient reports 6 beers/day (afternoon/nighttime, no morning ETOH use) - S/P Left common fem artery endarterectomy (12/05/20): Grade 2 view, MAC#3, ETT 7.5 at [facility] - ASA/plavix instructions: per surgeon/prescriber - Cardiac hx/case reviewed with Dr. Headley. He feels patient okay to proceed with given surgery as scheduled without further cardiac evaluation and/or testing from his perspective. Chart Review Chart Review: Acceptable Risk for Surgery (pending evaluation DOS) and Patient seen in Pre Admission Testing Teaching & Discussion Pre-Anesthesia Teaching/Discussion Notes: Instructed NPO after midnight before surgery,except medications with 15 cc of water. Medication instructions provided according to the PAT guidelines. History Surgery Operation Date: 12/17/22 10:50 Proposed Procedures p Left Transcarotid Artery Revascularization - Efren Castrejon MD Height/Weight Height: 5 ft 10 in Weight: 71.8 kg Allergies Allergy/AdvReac Type Severity Reaction Status Date / Time No Known Allergies Allergy Verified 12/08/22 15:04 Medications Home Medications Medication Instructions Recorded Confirmed Last Taken Marijuana 1 inh inhalation DAILY 11/28/20 12/08/22 09/11/22 14:30 clopidogrel 75 mg tablet (Plavix) 75 mg PO QAM 11/28/20 12/08/22 09/12/22 03:30 lisinopril 2.5 mg tablet 2.5 mg PO QAM 11/28/20 12/08/22 09/12/22 03:30 pantoprazole 20 mg tablet,delayed 20 mg PO QAM 11/28/20 12/08/22 09/12/22 03:30 release atorvastatin 20 mg tablet 20 mg PO QAM 12/03/22 12/08/22 Unknown sumatriptan succinate 50 mg tablet 50 mg PO UD PRN Migraine Headache 12/03/22 12/08/22 Unknown aspirin 81 mg tablet,delayed 81 mg PO QAM 12/08/22 12/08/22 Unknown release Past Medical History Medical History (Updated 12/09/22 @ 11:59 by Caroline Craig) CAD (coronary artery disease) stents x2 2006 (LIZ tp Lcx, POM3) stents x1 2009 (mid OM3) No longer following with cardio, good functional status at PAT visit 12/03/20 with no cardiopulmonary complaints and recent echo done 07/2020 Carotid artery disease Neck CTA (12/03/22): up to 50% proximal CHONG stenosis, 70% stenosis within proximal LICA GERD (gastroesophageal reflux disease) Controlled Gout Hx Hx of migraines Hyperlipidemia Hypertension LBBB (left bundle branch block) Chronic dating back to at least 2015 EKG (scanned into [employer]), subsequent echo 2020 PAD (peripheral artery disease) Stroke-like symptoms TIA (12/03/22, [facility] ER), no acute head imaging findings, noted to have significant carotid disease (reason for upcoming surgery) Exercise / Class Metabolic Activity II 4-5 Yardwork/Stairs/Walk up hill (one FS (no CP, no SOB)) Past Family History Family History Father Family history of diabetes mellitus Uncle Family hx of colon cancer Past Surgical History Surgical History (Updated 12/09/22 @ 11:54 by Caroline Craig) History of cardiac cath 2007- stents x2 2009- stent x1 History of cataract surgery R/L History of colonoscopy History of esophagogastroduodenoscopy (EGD) History of vascular surgery RLE (2015) Left common fem artery endarterectomy (12/05/20): Grade 2 view, MAC#3, ETT 7.5 at [facility] Past Anesthesia History No Hx of Anesthesia Complications and No Family Hx of Anesthesia Complications History of PONV No Hx of PONV and No Hx of Motion Sickness Social History Smoking Status: Former smoker Do You Dip or Chew Tobacco: No Smoking End Date: Quit 2015 Hx Alcohol Use: Yes Alcohol type: beer and hard liquor alcohol intake frequency: 3 or more drinks per day (6 beers/day (afternoon/nighttime, no morning ETOH use)) Hx Substance Use: Yes substance use type: marijuana (few times per week, inhaled) Review of Systems Patient denies chest pain, shortness of breath, dyspnea on exertion, fever, chills, cough, wheezing, palpitations. Physical Exam Vital Signs VITALS BP 107/74 P 98 TEMP 98.2 SP02 97%RA RESP 16 PHYSICAL Full cervical extension range of motion. Full TMJ range of motion. TMD 4 finger breaths Mallampati Score 2 Dentition: full dentures upper, edentulous Lungs: clear throughout to auscultation Cardiac: regular rate and rhythm, no murmurs noted Spine: normal Carotid arteries: + b/l bruits Extremities: no LE edema Lab Results Anesthesia Preop Results Results Anesthesia Widget: WBC 6.82 K/ul (4.8-10.8) 12/03/22 Hgb 12.3 g/dl (14.0-18.0) L 12/03/22 Hct 39.1 % (42.0-52.0) L 12/03/22 Plt 263 K/uL (130-400) 12/03/22 Na 131 mmol/L (136-145) L 12/03/22 K 4.4 mmol/L (3.5-5.1) 12/03/22 Cl 100 mmol/L (98-107) 12/03/22 CO2 20 mmol/L (21-32) L 12/03/22 BUN 26 mg/dl (6-23) H 12/03/22 Creat 1.28 mg/dl (0.6-1.4) 12/03/22 Glucose Level 104 mg/dl (70-99(Fasting)) H 12/03/22 PT 11.4 Seconds (9.0-12.0) 12/03/22 PTT 26.7 Seconds (21.0-31.0) 12/03/22 INR 1.0 (0.9-1.1) 12/03/22 Blood Type A Positive 12/09/22 Antibody Screen NEGATIVE 12/09/22 Testing Electrocardiogram Date: 12/03/22 NSR at 98bpm. LBBB. No significant change compared to 12/03/20 per rail transit operator comparison. Chest X-Ray Date: 12/03/22 FINDINGS: No pneumothorax. No pleural effusions. There are low lung volumes. No focal lung consolidations to suggest a pneumonia. No evidence for pulmonary edema. No acute fractures identified. A small right azygos lobe is again noted. The cardiac silhouette is normal in size. IMPRESSION: No acute process. Echocardiogram Date: 07/25/20 EF 55 to 60%. No chamber enlargement. Diastolic Doppler mitral inflow patterns consistent with abnormal relaxation. No significant valvular disease. Mild concentric LVH. Stress Test Date: 08/08/15 No stress EKG/ECHO induced ischemic changes. EF 40%. Other Testing Neck/head CTA Date: 12/03/22 FINDINGS: There is no mass, hematoma, midline shift, or acute infarct. Visualized intracranial internal carotid arteries, distal vertebral arteries, and basilar artery are widely patent. There is no significant stenosis, occlusion, or aneurysm seen within the bilateral ACAs, MCAs, or executive sous chef. There is a hypoplastic distal right vertebral artery. There is a persistent left posterior circulation. The major dural venous sinuses are patent. The aortic arch and proximal great vessels are widely patent. Mild focal narrowing at the takeoff of the right vertebral artery. The proximal left vertebral artery is not well visualized and may be severely hypoplastic or chronically occluded. The mid to distal left vertebral artery is severely hypoplastic. Severe calcified plaque within the distal bilateral common carotid arteries, carotid bifurcations, and proximal bilateral internal carotid arteries. There is severe stenosis within the distal right common carotid artery of 80-90%. There is up to 50% stenosis within the proximal right internal carotid artery artery. There is 70% stenosis within the proximal left internal carotid artery and multifocal stenosis of up to 80% within the distal left common carotid artery. IMPRESSION:No significant stenosis, occlusion, or aneurysm within the [place]. Multifocal stenosis within the distal bilateral common carotid arteries and proximal internal carotid arteries as described above due to the severe calcified plaque. The proximal left vertebral artery is not well visualized and may be severely hypoplastic or chronically occluded. The mid to distal left vertebral artery is severely hypoplastic. Head CT Date: 12/03/22 Findings: The paranasal sinuses and mastoid air cells are clear. The calvarium and skull base are intact. The ventricles and sulci are within normal limits. There is no mass, hematoma, midline shift, or acute infarct. Impression: No acute intracranial abnormality.
--- NOTE | 2022-12-16 11:06 | History & Physical Report ---
Date of Service December 16, 2022 History of Present Illness Primary Care Provider: Mckay Marin Name: MARIANA KAHN Patient Number: [id number] : 1960 Date of Service: 12/08/2022 Chief Complaint: _Bilateral carotid stenosis HPI: _Mr. Kahn is a middle-age male who presents to Dr. Castrejon vascular surgery clinic today for a office visit to discuss severe bilateral ICA stenosis which was noted on some recent imaging. As you may remember, Mr. Kahn is followed by Dr. Castrejon for severe aortoiliac and peripheral arterial disease and has undergone multiple revascularization procedures. Mr. Kahn states that he had been complaining of sudden onset of the lower two thirds of his right eye vision turning black for up to 45 seconds a few times a week for the past 2 to 3 months. When he decided to see his eye doctor last week, they advised him to call our office as they were concerned about the symptoms possibly being related to his carotid arteries. Upon further questioning patient also states that his right arm has been having numbness lasting about 30 seconds each time over the past 2 weeks. When he called our office last week, we advised him to go to the emergency room for further evaluation. At the hospital, he was told that his brain scans were fine, and to follow-up with our office. Patient does state that he has been suffering from severe migraines for the past few months as well, but this does not always coincide with his eye or arm symptoms. He denies any difficulty speaking or swallowing, facial droop, sudden onset confusion, dizziness or syncope, or any extremity weakness. Patient does take 81 mg aspirin, Plavix, and atorvastatin daily and has for many years due to his severe arterial disease. Imaging: Patient's neck CTA performed at [facility] last week demonstrates 80% stenosis of his left ICA, and 70% stenosis of his right ICA. Current Home Meds: (Last Updated 12/08 13:18) SUMAtriptan (SUMAtriptan 50 mg oral tablet) 50 mg PO ONCE PRN: as needed for migraine headache aspirin (aspirin 81 mg oral delayed release tablet) 81 mg PO Daily atorvastatin (atorvastatin 40 mg oral tablet) 40 mg PO qhs cholecalciferol (cholecalciferol 25 mcg (1000 intl units) oral capsule) 25 mcg PO Daily clopidogrel (Plavix 75 mg oral tablet) 75 mg PO Daily fenofibrate (TriCor 145 mg oral tablet) 145 mg PO Daily lisinopril (lisinopril 2.5 mg oral tablet) 2.5 mg PO Daily pantoprazole (pantoprazole 40 mg oral delayed release tablet) 40 mg PO Daily Allergies and Sensitivities: No Known Medication Allergies Past Medical History: Problems: Bilateral carotid artery stenosis Peripheral arterial disease (atherosclerosis) (atherosclerosis) Peripheral cyanosis Paresthesia of foot CREST syndrome Scleroderma Telangiectasia Sclerodactyly Current tear of lateral cartilage or meniscus of knee Gout Hypertension Hyperlipidemia GERD (gastroesophageal reflux disease) CAD (coronary artery disease) OBJECTIVE Vitals: Last Updated 12/08/22 16:04 Date Temp BP Location Pulse RR SpO2 Pain 12/08/22 0 12/08/22 172/100 Left Arm 85 98 09/29/22 0 Vital Signs are the last 3 documented. No Orthostatic Data Available Height and Weight: Last Updated 12/08/22 13:20 Date BMI Wt(kg) Wt(lb) Method Ht(cm) (ft-in) Method 12/08/22 71.4 157 Standing Scale 04/16/20 73.9 163 Standing Scale 04/27/17 23.16 73.2 161 Standing Scale 177.8 5-10 Heights and Weights are the last 3 documented. Physical Exam Constitutional: In general patient is a healthy-appearing well-nourished well- developed middle-aged male no distress. He is alert and oriented without any focal deficits. His carotids do not demonstrate bruit. His heart is regular, his lungs are clear. His abdomen is soft and nontender with normoactive bowel sounds in all 4 quadrants. Brachial and radial pulses are +3. Femoral pulses are +2. Distal pulses are +1. He has brisk capillary refill and no sign of distal ischemia. ASSESSMENT: _ PLAN: _ 1 ) _severe bilateral ICA stenosis, symptomatic Patient CTA imaging does demonstrate significant bilateral ICA stenosis. He does have intermittent right eye symptoms consistent with right-sided amaurosis relating to the right ICA stenosis. He also has intermittent symptoms of right arm numbness, which is consistent with the left ICA stenosis. At this point we would recommend surgical intervention on both sides due to bilateral symptomatology. This cannot be done simultaneously, and so we will proceed with a left-sided intervention first due to severity of the stenosis and right arm symptoms. A long discussion was had with the patient regarding surgical intervention options including carotid endarterectomy versus transfemoral carotid stenting, versus transcarotid artery revascularization. Patient elects to proceed with left-sided TCAR, and we will plan to do this next week. The procedure risks benefits and alternatives were discussed with the patient by Dr. Castrejon. Patient expresses understanding and agreement to proceed. He was advised to call the office with any other questions. Thank you for letting us participate in the care of this patient. Signature Line Electronic Signature on File CC: Mckay Marin MD [facility]-[address], [address] [facility] [id number] * Electronically Reviewed/Signed by: Ashly Min PA-C Author Signature Dt/Tm:12/08/2022 05:13 PM [facility] [place], [address] [place] [address] LM Result Type: HVI Outpt Note Date of Service: December 08, 2022 17:00 EDT Authorization Status: Final Author or Import Date: CINDY Min Lynn on December 08, 2022 17:13 EDT Verified By: CINDY Min Lynn on December 08, 2022 17:13 EDT Encounter info: [id number], [facility], Clinic, 12/08/2022 - 12/08/2022 Allergies Allergy/AdvReac Type Severity Reaction Status Date / Time No Known Allergies Allergy Verified 12/08/22 15:04 Home Medications Medication Instructions Recorded Confirmed Type Marijuana 1 inh inhalation DAILY 11/28/20 12/08/22 History clopidogrel 75 mg tablet (Plavix) 75 mg PO QAM 11/28/20 12/08/22 History lisinopril 2.5 mg tablet 2.5 mg PO QAM 11/28/20 12/08/22 History pantoprazole 20 mg tablet,delayed 20 mg PO QAM 11/28/20 12/08/22 History release atorvastatin 20 mg tablet 20 mg PO QAM 12/03/22 12/08/22 History sumatriptan succinate 50 mg tablet 50 mg PO UD PRN Migraine Headache 12/03/22 12/08/22 History aspirin 81 mg tablet,delayed 81 mg PO QAM 12/08/22 12/08/22 History release Past Med/Surg History Medical History (Updated 12/09/22 @ 11:59 by Caroline Cragi) CAD (coronary artery disease) stents x2 2006 (LIZ tp Lcx, POM3) stents x1 2008 (mid OM3) No longer following with cardio, good functional status at PAT visit 12/03/20 with no cardiopulmonary complaints and recent echo done 07/2020 Carotid artery disease Neck CTA (12/03/22): up to 50% proximal CHONG stenosis, 70% stenosis within proximal LICA GERD (gastroesophageal reflux disease) Controlled Gout Hx Hx of migraines Hyperlipidemia Hypertension LBBB (left bundle branch block) Chronic dating back to at least 2015 EKG (scanned into [employer]), subsequent echo 2020 PAD (peripheral artery disease) Stroke-like symptoms TIA (12/03/22, [facility] ER), no acute head imaging findings, noted to have significant carotid disease (reason for upcoming surgery) Surgical History (Updated 12/09/22 @ 11:54 by Caroline Craig) History of cardiac cath 2007- stents x2 2009- stent x1 History of cataract surgery R/L History of colonoscopy History of esophagogastroduodenoscopy (EGD) History of vascular surgery RLE (2015) Left common fem artery endarterectomy (12/05/20): Grade 2 view, MAC#3, ETT 7.5 at [facility] Family History Father Family history of diabetes mellitus Uncle Family hx of colon cancer Social History Smoking Status: Former smoker Tobacco Type: Cigarettes Smoking End Date: Quit 2015; Second Hand Exposure: Yes (hx socially); Do You Dip or Chew Tobacco: No; Tobacco Cessation Education Requested by Patient: No Hx Alcohol Use: Yes Alcohol type: beer and hard liquor Hx Substance Use: Yes Substance Use Type Other:: INHALATION ON WEEKENDS AND DAILY ON OCC Preferred Language: Greenlandic Communication Ability: Effective Cherry [employer] Required: No Beliefs That Will Affect Care: None Current Living Situation: Family current occupational status: disabled Other Information That Helps Us Care for You: No Feels Safe at Home: Yes Safety Concerns: Feels Safe At This Time Assistive Devices: Denture - Upper
[~2022-12-17 08:50] MED LIST changes: -CEFAZOLIN 1,000 MG/7.5 ML SYR IV SCH; +General Order Problem(s) SCH; +ceFAZolin 2000MG 2,000 MG/15 ML SYR IV SCH
[2022-12-17] MEDS ORDERED: ONDANSETRON INJ 2 MG/ML 2 ML VIAL ONE (08:53)
[2022-12-17] MEDS ORDERED: MIDAZOLAM HCL 1 MG/ML 2ML VIAL ONE (08:53)
[2022-12-17] MEDS ORDERED: DEXAMETHASONE SOD INJ 4 MG/ML VIAL ONE (08:53)
[2022-12-17] MEDS ORDERED: PROPOFOL IV EMULSION 10 MG/ML 20 ML VIAL IV ONE (08:53)
[2022-12-17] MEDS ORDERED: fentaNYL citrate PF 100 MCG/2 ML VIAL ONE ×2 (08:53→11:39)
[2022-12-17] MEDS ORDERED: LIDOCAINE 2% 2 ML VIAL/AMP(20MG/ML) INFIL ONE ×2 (08:53→12:19)
[2022-12-17] MEDS ORDERED: ROCURONIUM BROMIDE 10 MG/ML 5 ML VIAL IV ONE ×5 (08:54→11:32)
[2022-12-17] MEDS ORDERED: CLOPIDOGREL BISULFATE 75 MG TAB PO ONE (09:45)
[2022-12-17] MEDS ORDERED: ASPIRIN 81 MG CHEW PO STA (09:53)
[2022-12-17] MEDS ORDERED: ASPIRIN 81 MG ECTAB PO ONE (10:06)
[2022-12-17] MEDS ORDERED: LABETALOL HCL IV 5 MG/ML 20ML IV PRN (10:09)
[2022-12-17] MEDS ORDERED: ePHEDrine sulfate 50 MG/ML AMP IV PRN (10:09)
[2022-12-17] MEDS ORDERED: ATROPINE SULFATE 0.1 MG/ML 10ML SYR IV PRN (10:09)
[2022-12-17] MEDS ORDERED: NALOXONE HCL 0.4 MG/1 ML VIAL/CARP IV PRN (10:09)
[2022-12-17] MEDS ORDERED: fentaNYL citrate PF 100 MCG/2 ML VIAL IV PRN (10:09)
[2022-12-17] MEDS ORDERED: PROMETHAZINE HCL 12.5 MG in SODIUM CHLORIDE 0.9% 50 ML IV PRN (10:09)
[2022-12-17] MEDS ORDERED: ONDANSETRON INJ 2 MG/ML 2 ML VIAL IV PRN (10:09)
[2022-12-17] MEDS ORDERED: FLUMAZENIL 0.1 MG/1 ML 10 ML VIAL IV PRN (10:09)
--- NOTE | 2022-12-17 10:09 | History & Physical Bridge Note ---
Date of Service December 17, 2022 History & Physical Bridge Note I have examined the patient, reviewed the History & Physical and in the interval since the performance of the History & Physical I have noted the following changes of clinical significance: no changes noted
[2022-12-17 10:11] LABS: BUN Creatinine Ratio 13.1 (10-20); Calcium 9.6 mg/dl (8.6-10.3); Creatinine Clr Calc Pharmacy 60.2 ml/min; Est GFR (African American) 72.2 ml/min; Est GFR (Non-African American) 62.3 ml/min; Potassium 3.9 mmol/L (3.5-5.1)
[2022-12-17] MEDS ORDERED: BUPIVACAINE/EPINEPHRINE 0.5% MPF 1:200,000 30 ML VIAL ONE (10:37)
[2022-12-17] MEDS ORDERED: THROMBIN FOR SOLN 20000 UNIT KIT ONE (10:37)
[2022-12-17] MEDS ORDERED: GELATIN SPONGE SZ 100 ONE (10:38)
[2022-12-17] MEDS ORDERED: ceFAZolin 330 MG/ML 1 GM VIAL ONE (10:38)
[2022-12-17] MEDS: SODIUM CHLORIDE 0.9% 1,000 ML IV SCH (10:44)
[2022-12-17] MEDS ORDERED: ePHEDrine sulfate 50 MG/5 ML SYR ONE (11:28)
[2022-12-17] MEDS ORDERED: GLYCOPYRROLATE 0.2 MG/ML VIAL ONE (11:31)
[2022-12-17] MEDS ORDERED: SUGAMMADEX SODIUM 200 MG/2 ML VIAL IV ONE (12:13)
[2022-12-17] MEDS ORDERED: HEPARIN SOD (PORCINE) 1000 UNIT/ML ONE (12:13)
[2022-12-17] MEDS ORDERED: PROTAMINE SULFATE 10 MG/ML 5 ML VIAL IV ONE (12:13)
[2022-12-17] MEDS ORDERED: VISIPAQUE IV ONE (12:27)
[2022-12-17] MEDS ORDERED: ESMOLOL HCL INJ 10 MG/ML 10ML VIAL IV ONE (12:31)
--- NOTE | 2022-12-17 12:35 | Procedure Note ---
Angiogram Post Procedure Fluoroscopy Time (minutes): 6.1 Radiation (mGy): 30 Contrast: 21 Post Operative Report Pre & Post Diagnosis Operation Date: 12/17/22 10:50 Pre-Op Diagnosis: Symptomatic Internal Carotid Artery Stenosis Post-Op Diagnosis: Symptomatic Internal Carotid Artery Stenosis I identified the patient and participated in the time-out.: Yes Procedure Operation Date: 12/17/22 10:50 Actual Procedures p Left Transcarotid Artery Revascularization(Left), ultrasound localization of right common femoral vein - Efren Castrejon MD Surgeon Efren Castrejon MD Firer Kiln Jolene,PAC Estimated Blood Loss 50 Findings Consistent with Post-Op Diagnosis Specimens none Anesthesia Type General Complications none Disposition Accompanied Patient To Recovery: No Disposition: Recovery Room Indications This is a 62-year-old gentleman who was found to have bilateral symptomatic carotid lesions greater than 80%. TCAR was recommended for his left side as the first side to be treated. I have discussed the risks options and benefits of the procedure with the patient. The patient understands the risks options and benefits and agrees to the procedure. Description of Procedure The patient was taken to the operating room and placed in supine position. Af ter general anesthesia was accomplished the groins and left side of the neck and chest were prepped and draped in a sterile manner. Timeout was performed and the patient was identified. A transverse incision was made just above the clavicle between the heads of the sternocleidomastoid. This is carried down to where the common carotid artery was identified. It was isolated. It was slung with umbilical tape. Next the U stitch was placed in the common carotid artery with a 5-0 Prolene suture. Patient was given 7000 heparin at that time. Ultrasound was then used to localize the right common femoral vein. The vein was patent and compressed easily. Under ultrasound guidance the right common femoral vein was punctured and the venous sheath was inserted. This was aspirated and flushed with heparinized saline. ACT at that time was 293. Using micropuncture technique the common carotid artery was punctured. The micro sheath was inserted to 3 cm. Injection was then done showing the bifurcation. There were three areas of significant lesions seen at the origin of the internal carotid artery on the left side. We then inserted the J-wire left and short of the lesion. The micro sheath was removed and the TCAR sheath was inserted. Once it was in place and held against the artery it was sutured to the chest wall and the incision edge. We then flushed the tubing appropriately. The venous return to was clamped onto the TCAR sheath. It was flushed through and then attached to the venous inflow sheath in the right groin. Sheath was checked for flow. The saline cleared nicely. The common carotid artery was then clamped. Flow reversal was instituted. We inserted a 4.5 x 35 balloon backloaded on the wire. The wire was passed through the lesion into the petrous portion of the internal carotid with the aid of a kumpe catheter. The 4.5 balloon was then advanced to the lesion. Lesion was then predilated with a 4.5 mm balloon. Balloon was removed. We then inserted the 8 x 40 stent. This was deployed across the lesion without difficulty. The catheter was removed. We then inserted a 9 x 40 stent for the more proximal lesion overlapping the first stent. The common carotid artery just before the bifurcation was dilated with a 6 x 35 balloon. The carotid was allowed to go 2 minutes with flow reversal. Completion angiogram was done at that time which showed a widely patent carotid stent. At that point the common carotid artery was unclamped. The venous return tubing was clamped and removed from the TCAR sheath. The blood was allowed to flow back into the venous system. Once this was completed the sheath was pulled from the groin and pressure was applied. The TCAR sheath was then removed and the 5-0 Prolene suture securely tied. Hemostasis was noted of the puncture site. Wound was irrigated with Ancef solution. Adequate hemostasis was obtained of the wound. Once this was noted the wound was closed in usual fashion using a 3-0 Vicryl suture for the subcutaneous layer and a 4-0 subcuticular Vicryl suture for the skin edges. Dermabond was used for dressing.The patient left the operation room in satisfactory condition and tolerated the procedure well. All needle and sponge counts were correct at the end of the procedure. Ashly Min Pac assisted due to lack of resident availability and was necessary for positioning, draping, retraction, wound closure deep layers, subcutaneous tissue, and skin closure and was necessary for assisting with the case. I attest to the content of the Intraoperative Record and any orders documented therein. Any exceptions are noted below.
[2022-12-17] MEDS ORDERED: ARISTA ABSORBABLE HEMOSTAT 3GM TOP ONE (12:45)
[2022-12-17] MEDS ORDERED: oxyCODONE/ACETAMINOPHEN 5mg/325mg TAB PO PRN (14:11)
--- NOTE | 2022-12-17 14:43 | Anesthesiology Progress Note ---
Date of Service December 17, 2022 Anesthesia Post Procedure Vital Signs Vital Signs: Temp Pulse Resp BP BP BP Pulse Ox 12/17/22 13:35 74 16 112/59 L 96 12/17/22 13:25 36.1 C L 77 16 101/54 L 98 12/17/22 13:15 79 14 101/54 L 98 12/17/22 13:05 75 14 113/60 100 12/17/22 12:55 75 15 136/85 99 12/17/22 12:48 35.6 C L 80 18 136/86 92 12/17/22 09:28 36.7 C 88 18 144/91 H 134/92 99 O2 Del Method O2 Flow Rate 12/17/22 13:35 Room Air 12/17/22 13:25 Room Air 12/17/22 13:15 Room Air 12/17/22 13:05 Oxymask 5 12/17/22 12:55 Oxymask 5 12/17/22 12:48 Oxymask 5 12/17/22 09:28 Room Air Transfer of Care Handoff Completed per policy Notes Mental Status: alert / awake / arousable Patient Amnestic to Procedure: Yes Nausea / Vomiting: adequately controlled Pain: adequately controlled Airway Patency, RR, SpO2: stable & adequate BP & HR: stable & adequate Hydration State: stable & adequate Anesthetic Complications: no major complications apparent
[2022-12-17] MEDS: ceFAZolin 2000MG 2,000 MG/15 ML SYR IV SCH ×2 (15:26→22:56)
[2022-12-17] MEDS: LACTATED RINGER'S 1,000 ML IV SCH (15:27)
--- NOTE | 2022-12-17 15:31 | Critical Care Consultation ---
Date of Consultation December 17, 2022 Assessment & Plan (1) Bilateral carotid artery disease: (2) Transient cerebral ischemia: (3) Hyperlipidemia: (4) Anemia: (5) Hyponatremia: Plan Impression: 62-year-old male with history of significant atherosclerotic disease status post left TCAR. He is doing well postoperatively. Recommendations: 1. Status post TCAR: The patient is doing well clinically. Postoperative orders per vascular surgery. We will continue to follow. His incisions appear clean dry and intact. Antiplatelet agents per vascular surgery. 2. Hypertension: Continue blood pressure goals per vascular surgery. 3. Hyperlipidemia: Continue statin. 4. Mild hyponatremia in the past, currently corrected. Continue to follow at this point time. We will observe overnight in the intensive care unit for complications related to surgery. Ultimate disposition per vascular surgery. The patient's remaining medical issues have been well addressed by the vascular surgery service. Feel free to contact us with additional questions. History of Present Illness Attending Physician: Efren Castrejon MD History of Present Illness Asked by vascular surgery service to assist in evaluation and management of this patient status post TCAR. History is obtained from review of electronic medical record and discussion with the patient. Patient is a 62-year-old male with a history of severe aortoiliac and peripheral arterial disease. He is undergone multiple revascularization procedures in the past. He has had progressive amaurosis as well as right arm numbness. In the outpatient setting he is taking aspirin Plavix and Lipitor. Patient had a CTA showing significant bilateral internal carotid artery stenosis. Given his right eye symptoms, decision was made to proceed with right-sided TCAR. Procedure was accomplished in the OR today and the patient returns to the ICU hemodynamically stable. His incisions clean dry and intact. He is not having any dysarthria or speech difficulties. No issues with swallowing. No new neurological symptoms. Allergies Allergy/AdvReac Type Severity Reaction Status Date / Time No Known Allergies Allergy Verified 12/17/22 09:23 Home Medications Medication Instructions Recorded Confirmed Type Marijuana 1 inh inhalation DAILY 11/28/20 12/17/22 History clopidogrel 75 mg tablet (Plavix) 75 mg PO QAM 11/28/20 12/17/22 History lisinopril 2.5 mg tablet 2.5 mg PO QAM 11/28/20 12/17/22 History pantoprazole 20 mg tablet,delayed 20 mg PO QAM 11/28/20 12/17/22 History release atorvastatin 20 mg tablet (Lipitor) 20 mg PO QAM 12/03/22 12/17/22 History aspirin 81 mg tablet,delayed 81 mg PO QAM 12/08/22 12/17/22 History release Patient History Medical History (Updated 12/17/22 @ 15:27 by Damian Costa MD) CAD (coronary artery disease) stents x2 2006 (LIZ tp Lcx, POM3) stents x1 2008 (mid OM3) No longer following with cardio, good functional status at PAT visit 12/03/20 with no cardiopulmonary complaints and recent echo done 07/2020 Carotid artery disease Neck CTA (12/03/22): up to 50% proximal CHONG stenosis, 70% stenosis within proximal LICA GERD (gastroesophageal reflux disease) Controlled Gout Hx Hx of migraines Hyperlipidemia Hypertension LBBB (left bundle branch block) Chronic dating back to at least 2015 EKG (scanned into [employer]), subsequent echo 2020 PAD (peripheral artery disease) Stroke-like symptoms TIA (12/03/22, [facility] ER), no acute head imaging findings, noted to have significant carotid disease (reason for upcoming surgery) Surgical History History of cardiac cath 2007- stents x2 2009- stent x1 History of cataract surgery R/L History of colonoscopy History of esophagogastroduodenoscopy (EGD) History of vascular surgery RLE (2015) Left common fem artery endarterectomy (12/05/20): Grade 2 view, MAC#3, ETT 7.5 at [facility] Family History Father Family history of diabetes mellitus Uncle Family hx of colon cancer Social History Smoking Status: Former smoker Tobacco Type: Cigarettes Smoking End Date: Quit 2015; Second Hand Exposure: Yes (hx socially); Do You Dip or Chew Tobacco: No; Tobacco Cessation Education Requested by Patient: No Hx Alcohol Use: Yes Alcohol type: beer and hard liquor Hx Substance Use: Yes Substance Use Type Other:: INHALATION ON WEEKENDS AND DAILY ON OCC Preferred Language: Frisian Communication Ability: Effective [employer] Required: No Beliefs That Will Affect Care: None Current Living Situation: Family current occupational status: disabled Other Information That Helps Us Care for You: No Feels Safe at Home: Yes Safety Concerns: Feels Safe At This Time Assistive Devices: Denture - Upper Review of Systems Review of Systems: All systems reviewed & are unremarkable except as noted in Subjective Physical Exam Constitutional: WD/WN, vitals as above Neck: trachea midline, no thyromegaly Respiratory: normal respiratory effort, lungs clear to auscultation Cardiovascular: RRR, no murmur, no edema Gastrointestinal (Abdomen): normal bowel sounds, soft, nontender, no hepatosplenomegaly Musculoskeletal: Extremities: extremities normal to inspection Skin: no rashes, warm and dry Neurologic: Nonfocal exam Lymphatic: no cervical lymphadenopathy Results & Data Results & Data Vital Signs (Past 12 Hours) Vital Signs Temp Pulse Pulse Resp BP BP BP 12/17/22 15:00 70 19 12/17/22 15:00 125/77 12/17/22 14:45 80 21 12/17/22 14:33 74 15 12/17/22 15:07 12/17/22 14:11 36.5 C 12/17/22 13:35 74 16 112/59 L 12/17/22 13:25 36.1 C L 77 16 101/54 L 12/17/22 13:15 79 14 101/54 L 12/17/22 13:05 75 14 113/60 12/17/22 12:55 75 15 12/17/22 12:48 35.6 C L 80 18 12/17/22 09:28 36.7 C 88 18 144/91 H BP Pulse Ox O2 Del Method O2 Flow Rate 12/17/22 15:00 99 Room Air 12/17/22 15:00 12/17/22 14:45 12/17/22 14:33 98 Room Air 12/17/22 15:07 Room Air 12/17/22 14:11 12/17/22 13:35 96 Room Air 12/17/22 13:25 98 Room Air 12/17/22 13:15 98 Room Air 12/17/22 13:05 100 Oxymask 5 12/17/22 12:55 136/85 99 Oxymask 5 12/17/22 12:48 136/86 92 Oxymask 5 12/17/22 09:28 134/92 99 Room Air Critical Care Results & Data Vital Signs (Past 12 Hours) Vital Signs Temp Pulse Pulse Resp BP BP BP 12/17/22 15:00 70 19 12/17/22 15:00 125/77 12/17/22 14:45 80 21 12/17/22 14:33 74 15 12/17/22 15:07 12/17/22 14:11 36.5 C 12/17/22 13:35 74 16 112/59 L 12/17/22 13:25 36.1 C L 77 16 101/54 L 12/17/22 13:15 79 14 101/54 L 12/17/22 13:05 75 14 113/60 12/17/22 12:55 75 15 12/17/22 12:48 35.6 C L 80 18 12/17/22 09:28 36.7 C 88 18 144/91 H BP Pulse Ox O2 Del Method O2 Flow Rate 12/17/22 15:00 99 Room Air 12/17/22 15:00 12/17/22 14:45 12/17/22 14:33 98 Room Air 12/17/22 15:07 Room Air 12/17/22 14:11 12/17/22 13:35 96 Room Air 12/17/22 13:25 98 Room Air 12/17/22 13:15 98 Room Air 12/17/22 13:05 100 Oxymask 5 12/17/22 12:55 136/85 99 Oxymask 5 12/17/22 12:48 136/86 92 Oxymask 5 12/17/22 09:28 134/92 99 Room Air Lab & Micro Results (Past 24 Hours) No Data to Display Na 136 mmol/L (136-145) 12/17/22 K 3.9 mmol/L (3.5-5.1) 12/17/22 Cl 102 mmol/L (98-107) 12/17/22 CO2 23 mmol/L (21-32) 12/17/22 Anion Gap 11 (3-11) 12/17/22 BUN 16 mg/dl (6-23) 12/17/22 Creatinine 1.22 mg/dl (0.6-1.4) 12/17/22 Estimated GFR ( Amer) 72.2 ml/min 12/17/22 Estimated GFR (Non-Af Amer) 62.3 ml/min 12/17/22 BUN/Creatinine Ratio 13.1 (10-20) 12/17/22 Glu 110 mg/dl (70-99(Fasting)) H 12/17/22 Ca 9.6 mg/dl (8.6-10.3) 12/17/22 Calcium Level 9.6 mg/dl (8.6-10.3) 12/17/22 09:18 I & O Totals 24 Hours 12/16/22 12/17/22 12/18/22 06:59 06:59 06:59 Intake Total 1500 / 1500 Output Total 50 / 50 Balance 1450 / 1450 Cumulative 12/08/22 14:52 thru 12/17/22 14:12 Intake Total 1500 Output Total 50 Balance 1450 RT Ventilator Mngmt (Last Documented) Ventilator Ordered Settings Respiratory Rate 19 12/17/22 15:00 Ventilator - PT Measurements Respiratory Rate 19 Coding Level of Care Code 74276 IN/OBS CONSULT LVL 4,60M Diagnoses Bilateral carotid artery disease I65.23 Carotid artery disease type: stenosis Transient cerebral ischemia G45.9 Transient cerebral ischemia type: unspecified Hyperlipidemia E78.5 Anemia D64.9 Hyponatremia E87.1 (1) Bilateral carotid artery disease Carotid artery disease type: stenosis Qualified Code(s): I65.23 - Occlusion and stenosis of bilateral carotid arteries (2) Transient cerebral ischemia Transient cerebral ischemia type: unspecified Qualified Code(s): G45.9 - Transient cerebral ischemic attack, unspecified
[2022-12-18] MEDS: LACTATED RINGER'S 1,000 ML IV SCH (01:49)
[2022-12-18] MEDS ORDERED: ACETAMINOPHEN 325 MG TAB PO PRN (05:31)
[2022-12-18] MEDS: SODIUM CHLORIDE 0.9% 1,000 ML IV SCH (05:35)
--- NOTE | 2022-12-18 07:18 | Critical Care Progress Note ---
Date of Service December 18, 2022 Assessment & Plan (1) Bilateral carotid artery disease: (2) Transient cerebral ischemia: (3) Hyperlipidemia: (4) Anemia: (5) Hyponatremia: Plan Impression: 62-year-old male with history of significant atherosclerotic disease status post left TCAR. He is doing well postoperatively. Recommendations: 1. Status post TCAR: The patient is doing well clinically. His incisions appear clean dry and intact. Antiplatelet agents per vascular surgery. 2. Hypertension: Continue blood pressure goals per vascular surgery. 3. Hyperlipidemia: Continue statin. 4. Mild hyponatremia in the past, currently corrected. ICU Bundle DVT PPX: Per primary SUP: PPI Bowel regimen: PRN L/T/D PIV x2 Arterial line (Day #2) - remove today Disposition per vascular surgery. The patient's remaining medical issues have been well addressed by the vascular surgery service. Critical Care will sign off at this time. Thank you for including us in this patient's care. Admission and Anticipated Discharge Date Admission Date: December 17, 2022 Supervising Physician Co-Signing Physician Notes Patient seen and examined. EMR reviewed. Discussed with critical care CHRISTELLE and agree with assessment plan as noted. The patient is stable to transfer out of the ICU. Ultimate disposition per vascular surgery. Critical care services will sign off. Feel free to contact us with questions or concerns Subjective Will Carlota is a 62YO M admitted s/p TCAR. He has done well post-operatively. Straight cath x1 overnight, otherwise no events. This AM, up to chair, resting comfortably with no complaints. Hemodynamically stable. Review of Systems Review of Systems: All systems reviewed & are unremarkable except as noted in Subjective Physical Exam Constitutional: WD/WN, vitals as above Eyes: PERRL, conjunctivae normal, anicteric sclerae ENMT: external ear and nose normal, oropharynx normal Neck: L neck surgical site is C/D/I, very minimal clear drainage, it is well approximated Respiratory: normal respiratory effort, lungs clear to auscultation Cardiovascular: RRR, no murmur, no edema Gastrointestinal (Abdomen): normal bowel sounds, soft, nontender, no hepatosplenomegaly Skin: no rashes, warm and dry Surgical site as above Neurologic: No focal deficits, facial features symmetrical, tongue midline, strength and sensation intact in all extremities, able to move L arm without discomfort or limitation Results & Data Results & Data Vital Signs (Past 12 Hours) Vital Signs Temp Pulse Resp BP Pulse Ox 12/18/22 06:30 91 H 22 99 12/18/22 06:00 72 23 99 12/18/22 06:00 111/72 12/18/22 05:30 75 16 99 12/18/22 05:00 78 24 99 12/18/22 04:30 77 23 99 12/18/22 04:00 77 15 98 12/18/22 03:15 80 16 97 12/18/22 02:45 74 17 100 12/18/22 02:15 79 17 98 12/18/22 01:45 77 15 98 12/18/22 01:15 77 16 97 12/18/22 03:30 83 14 98 12/18/22 03:00 75 17 98 12/18/22 02:30 82 21 98 12/18/22 02:06 76 17 99 12/18/22 01:30 78 16 99 12/18/22 01:00 76 15 98 12/18/22 01:00 117/70 12/18/22 00:30 74 17 98 12/18/22 00:00 75 19 96 12/17/22 23:30 74 13 99 12/17/22 23:00 75 15 99 12/17/22 22:30 81 14 99 12/17/22 22:00 79 14 100 12/17/22 22:00 112/73 12/17/22 21:30 81 17 100 12/17/22 21:00 75 19 99 12/17/22 20:30 76 16 99 12/17/22 20:00 75 14 98 12/17/22 20:00 36.8 C 97/68 L 12/17/22 19:30 78 16 98 12/17/22 23:34 76 Coding Level of Care Code 38330 SUB INP/OBS CARE 2/35MIN Diagnoses Bilateral carotid artery disease I65.23 Carotid artery disease type: stenosis Transient cerebral ischemia G45.9 Transient cerebral ischemia type: unspecified Hyperlipidemia E78.5 Anemia D64.9 Hyponatremia E87.1 (1) Bilateral carotid artery disease Carotid artery disease type: stenosis Qualified Code(s): I65.23 - Occlusion and stenosis of bilateral carotid arteries (2) Transient cerebral ischemia Transient cerebral ischemia type: unspecified Qualified Code(s): G45.9 - Transient cerebral ischemic attack, unspecified
[2022-12-18] MEDS ORDERED: ASPIRIN 81 MG ECTAB PO SCH (09:00)
[2022-12-18] MEDS ORDERED: CLOPIDOGREL BISULFATE 75 MG TAB PO SCH (09:00)
[2022-12-18] MEDS ORDERED: ATORVASTATIN 20 MG TAB PO SCH (09:00)
[2022-12-18] MEDS ORDERED: lisinopril 2.5 MG TAB PO SCH (09:00)
[2022-12-18] MEDS ORDERED: PANTOprazole 40 MG TAB PO SCH (09:00)
--- NOTE | 2022-12-19 10:32 | Discharge Summary ---
Date of Service December 19, 2022 Admission HPI Per Admitting Provider Name: MARIANA KAHN Patient Number: [id number] : 1960 Date of Service: 12/08/2022 Chief Complaint: _Bilateral carotid stenosis HPI: _Mr. Kahn is a middle-age male who presents to Dr. Castrejon vascular surgery clinic today for a office visit to discuss severe bilateral ICA stenosis which was noted on some recent imaging. As you may remember, Mr. Kahn is followed by Dr. Castrejon for severe aortoiliac and peripheral arterial disease and has undergone multiple revascularization procedures. Mr. Kahn states that he had been complaining of sudden onset of the lower two thirds of his right eye vision turning black for up to 45 seconds a few times a week for the past 2 to 3 months. When he decided to see his eye doctor last week, they advised him to call our office as they were concerned about the symptoms possibly being related to his carotid arteries. Upon further questioning patient also states that his right arm has been having numbness lasting about 30 seconds each time over the past 2 weeks. When he called our office last week, we advised him to go to the emergency room for further evaluation. At the hospital, he was told that his brain scans were fine, and to follow-up with our office. Patient does state that he has been suffering from severe migraines for the past few months as well, but this does not always coincide with his eye or arm symptoms. He denies any difficulty speaking or swallowing, facial droop, sudden onset confusion, dizziness or syncope, or any extremity weakness. Patient does take 81 mg aspirin, Plavix, and atorvastatin daily and has for many years due to his severe arterial disease. Imaging: Patient's neck CTA performed at [facility] last week demonstrates 80% stenosis of his left ICA, and 70% stenosis of his right ICA. Current Home Meds: (Last Updated 12/08 13:18) SUMAtriptan (SUMAtriptan 50 mg oral tablet) 50 mg PO ONCE PRN: as needed for migraine headache aspirin (aspirin 81 mg oral delayed release tablet) 81 mg PO Daily atorvastatin (atorvastatin 40 mg oral tablet) 40 mg PO qhs cholecalciferol (cholecalciferol 25 mcg (1000 intl units) oral capsule) 25 mcg PO Daily clopidogrel (Plavix 75 mg oral tablet) 75 mg PO Daily fenofibrate (TriCor 145 mg oral tablet) 145 mg PO Daily lisinopril (lisinopril 2.5 mg oral tablet) 2.5 mg PO Daily pantoprazole (pantoprazole 40 mg oral delayed release tablet) 40 mg PO Daily Allergies and Sensitivities: No Known Medication Allergies Past Medical History: Problems: Bilateral carotid artery stenosis Peripheral arterial disease (atherosclerosis) (atherosclerosis) Peripheral cyanosis Paresthesia of foot CREST syndrome Scleroderma Telangiectasia Sclerodactyly Current tear of lateral cartilage or meniscus of knee Gout Hypertension Hyperlipidemia GERD (gastroesophageal reflux disease) CAD (coronary artery disease) OBJECTIVE Vitals: Last Updated 12/08/22 16:04 Date Temp BP Location Pulse RR SpO2 Pain 12/08/22 0 12/08/22 172/100 Left Arm 85 98 09/29/22 0 Vital Signs are the last 3 documented. No Orthostatic Data Available Height and Weight: Last Updated 12/08/22 13:20 Date BMI Wt(kg) Wt(lb) Method Ht(cm) (ft-in) Method 12/08/22 71.4 157 Standing Scale 04/16/20 73.9 163 Standing Scale 04/27/17 23.16 73.2 161 Standing Scale 177.8 5-10 Heights and Weights are the last 3 documented. Physical Exam Constitutional: In general patient is a healthy-appearing well-nourished well- developed middle-aged male no distress. He is alert and oriented without any focal deficits. His carotids do not demonstrate bruit. His heart is regular, h is lungs are clear. His abdomen is soft and nontender with normoactive bowel sounds in all 4 quadrants. Brachial and radial pulses are +3. Femoral pulses are +2. Distal pulses are +1. He has brisk capillary refill and no sign of distal ischemia. ASSESSMENT: _ PLAN: _ 1 ) _severe bilateral ICA stenosis, symptomatic Patient CTA imaging does demonstrate significant bilateral ICA stenosis. He does have intermittent right eye symptoms consistent with right-sided amaurosis relating to the right ICA stenosis. He also has intermittent symptoms of right arm numbness, which is consistent with the left ICA stenosis. At this point we would recommend surgical intervention on both sides due to bilateral symptomatology. This cannot be done simultaneously, and so we will proceed with a left-sided intervention first due to severity of the stenosis and right arm symptoms. A long discussion was had with the patient regarding surgical intervention options including carotid endarterectomy versus transfemoral carotid stenting, versus transcarotid artery revascularization. Patient elects to proceed with left-sided TCAR, and we will plan to do this next week. The procedure risks benefits and alternatives were discussed with the patient by Dr. Castrejon. Patient expresses understanding and agreement to proceed. He was advised to call the office with any other questions. Thank you for letting us participate in the care of this patient. Signature Line Electronic Signature on File CC: Mckay Marin MD [facility]-[address], [address] [facility] [id number] * Electronically Reviewed/Signed by: Ashly Min PA-C Author Signature Dt/Tm:12/08/2022 05:13 PM [facility] [place], [address] [place] [address] LM Result Type: HVI Outpt Note Date of Service: December 08, 2022 17:00 EDT Authorization Status: Final Author or Import Date: CINDY Min Lynn on December 08, 2022 17:13 EDT Verified By: CINDY Min Lynn on December 08, 2022 17:13 EDT Encounter info: [id number], [facility], Clinic, 12/08/2022 - 12/08/2022 Admission Exam Per Admitting Provider Constitutional: In general patient is a healthy-appearing well-nourished well- developed middle-aged male no distress. He is alert and oriented without any focal deficits. His carotids do not demonstrate bruit. His heart is regular, his lungs are clear. His abdomen is soft and nontender with normoactive bowel sounds in all 4 quadrants. Brachial and radial pulses are +3. Femoral pulses are +2. Distal pulses are +1. He has brisk capillary refill and no sign of distal ischemia. Principal Diagnosis 1. s/p L TCAR 2. Symptomatic L ICA stenosis Discharge Exam Constitutional WD/WN, vitals as above Neck L supraclavicular incision C/D/I, mild local edema, ecchymosis, tenderness. No erythema. Respiratory normal respiratory effort; no respiratory distress Auscultation: lungs clear to auscultation bilaterally and + diminished lung sounds Cardiovascular Rate/Rhythm: regular rate and regular rhythm Vessels: posterior tibial pulses present, dorsalis pedis pulses present and radial pulses present; + abnormal peripheral pulses Gastrointestinal (Abdomen) Inspection/Auscultation: abdomen normal to inspection and normal bowel sounds Percussion/Palpation: abdomen soft; abdomen nontender Musculoskeletal no cyanosis or clubbing, extremities motor strength 5/5 Skin no rashes, warm and dry Neurologic moves all extremities and awake; no focal motor deficits and not confused Psychiatric A+Ox3, euthymic affect Discharge Data Allergies Allergy/AdvReac Type Severity Reaction Status Date / Time No Known Allergies Allergy Verified 12/17/22 09:23 Consultations 12/17/22 14:11 Consult Merchandise Executive Routine Procedures Performed Operation Date: 12/17/22 10:50 Actual Procedures p Left Transcarotid Artery Revascularization(Left) - Efren Castrejon MD Ordered Studies 12/17/22 10:14 EV angio carotid cerv LT Routine US EV guide vascular access Routine Hospital Course (1) Presence of internal carotid stent: Pt POD #1 after uncomplicated L TCAR. Pt doing well. Will d/c home today and plan on scheduling R TCAR d/t amaurosis sx in 1-2 weeks. Total Time Total Time Spent Total Time Spent (In Minutes): 0 Discharge Plan Discharge Items Patient Disposition: Home - Self-Care Reason For Visit: Symptomatic Internal Carotid Artery Stenosis Discharge Diagnosis: Left internal carotid artery stenosis, symptomatic Activity: Per Instructions section Non-emergency contact: Surgeon Call non-emergency contact if: your temperature is above 101.5, your wound has increased redness, your wound has increased drainage and your wound pain has increased Follow-up/Referrals: Mckay Marin [Primary Care Provider] - Diet: Heart Healthy Addtl Attending Provider Instructions: SPECIAL CARE INSTRUCTIONS: Medications: * Continue to take Aspirin, plavix, and statin as directed. Call the office if you need to stop any of these during the next year Incision Care: * You may shower, but do not rub incision. You may let the warm soapy water run over it. Be sure to dry the incision well after bathing. * Do not shave directly over the incision until it is healed. * DO NOT IMMERSE THE INCISION IN A TUB/POOL/etc. UNTIL HEALED. Restrictions: * Do not drive for at least one week or if you are still taking any narcotic pain medication. * Do not lift anything heavier than a gallon of milk for one week after going home. Possible Complications: * Numbness - It is normal to have some numbness around the incision. Numbness can extend beyond the incision to areas of the neck, ear and face. The numbness is due to bruising of nerves during the surgery and will gradually improve over a period of months. * Hoarseness/Difficulty Speaking and Swallowing - The bruising of nerves in the neck can also cause a hoarse voice, difficulty speaking or swallowing. This may improve over time, HOWEVER, if it continues for more than a few days please contact our office ([phone]). * Excessive Swelling - There will be some swelling immediately after surgery which usually resolves within one week. If you notice that the swelling is getting worse, notify your surgeon ([phone]). * Drainage/Bleeding - If there is any drainage or bleeding, it should be a very small amount (less than a teaspoon per day). If you have excessive bleeding or drainage from the incision, call your surgeon ([phone]) right away. ACTIVATION OF EMERGENCY MEDICAL SYSTEM: Call 911, immediately, if you experience any of the following: Warning Signs and Symptoms of Stroke: * Sudden numbness or weakness of the face, arm or leg, especially on one side of the body * Sudden confusion, trouble speaking or understanding * Sudden trouble seeing in one or both eyes * Sudden trouble walking, dizziness, loss of balance or coordination * Sudden severe headache with no cause Do not delay calling 911 if you experience any warning signs or symptoms of a stroke. Delay in seeking medical attention may affect what treatments can be given to you. Risk Factors for Stroke: You can reduce your chances of stroke by working with your medical provider to adopt a healthy lifestyle. Some specific ways to lower your chance of stroke are: * If you are a smoker, now is the time to stop smoking cigarettes * If you are diabetic, improve the control of your blood sugars * Avoid excessive amounts of alcohol * Control high blood pressure * Lose weight if you are overweight * Be sure to lead an active lifestyle * Eat a healthy diet low in salt, cholesterol and fat You should know about other risk factors for stroke that you are unable to control. These include: * Age 55 years or older * Male gender * Certain racial groups: , or / * Family History of Stroke, Mini stroke or Heart Attack * Sickle Cell Disease You will be receiving a call from the Vascular Surgery Nurse after you are discharged. FOLLOW UP VISIT: It is important for you to keep your follow up appointments with your medical provider. Keep any scheduled doctor appointments. Call [phone] to schedule a follow up appointment if one not already scheduled. Pending Studies at Discharge: No Stand-Alone Forms: My [facility] [employer], Smoking Cessation Medications and DC Order Prescriptions: New oxycodone-acetaminophen [Percocet] 5-325 mg tablet 1 tab PO Q8H PRN (Reason: pain) Qty: 14 0RF Continued aspirin 81 mg tablet,delayed release (DR/EC) 81 mg PO QAM clopidogrel [Plavix] 75 mg Tablet 75 mg PO QAM pantoprazole 20 mg Tablet,Delayed Release (Dr/Ec) 20 mg PO QAM lisinopril 2.5 mg Tablet 2.5 mg PO QAM Marijuana 1 inh inhalation DAILY atorvastatin [Lipitor] 20 mg tablet 20 mg PO QAM Discharge Orders: Discharge Order (Routine); Ordered 12/18/22 Ordered By: Efren Castrejon Admission Data Admit Date/Time: 12/17/22 12:21 Attending Provider: Efren Castrejon Admit Provider: Efren Castrejon Primary Care Provider: Mckay Marin Other Providers: Trell Stahl ; Luis Alberto Reno ; Guevara Tucker ; Sourav Hinojosa ; Randolph Lopez ; Damian Costa [place] ; Brezovic, Nathan S. ; Jemma Fields ; Danni Craft ; Christopher Jordan ; Sukh Roth Other Interventions: Discharge Summary Assessment (RN) Last Done: 12/18/22 14:11
--- NOTE | 2022-12-19 10:34 | Surgery Progress Note ---
Date of Service December 19, 2022 Assessment & Plan (1) Presence of internal carotid stent: Plan: Pt POD #1 after uncomplicated L TCAR. Pt doing well. Will d/c home today and plan on scheduling R TCAR d/t amaurosis sx in 1-2 weeks. Admission and Anticipated Discharge Date Admission Date: December 17, 2022 Subjective 62 yo m POD #1 after L TCAR. Pt states feeling ok, just a little tired. Denies any new complaints. Review of Systems Review of Systems: All systems reviewed & are unremarkable except as noted in HPI & below Physical Exam Constitutional: WD/WN, vitals as above Respiratory: normal respiratory effort; no respiratory distress Auscultation: lungs clear to auscultation bilaterally and + diminished lung sounds Cardiovascular: Rate/Rhythm: regular rate and regular rhythm Vessels: posterior tibial pulses present, dorsalis pedis pulses present and radial pulses present; + abnormal peripheral pulses Gastrointestinal (Abdomen): Inspection/Auscultation: abdomen normal to ins pection and normal bowel sounds Percussion/Palpation: abdomen soft; abdomen nontender Musculoskeletal: no cyanosis or clubbing, extremities motor strength 5/5 Skin: no rashes, warm and dry Neurologic: moves all extremities and awake; no focal motor deficits and not confused Psychiatric: A+Ox3, euthymic affect
== END 2022-12-18 15:56 | disposition home or self-care (01) | DRG 36 ==
LOC: ASU 08:50 → 1E 12:21
PROC: EV.TCAR (2022-12-17 10:50)

== ENCOUNTER 2022-12-23 10:09 | Inpatient (IN) ==
--- NOTE | 2022-12-19 14:20 | Anesthesiology Consultation ---
Date of Service December 19, 2022 Assessment & Plan (1) Encounter for pre-operative examination: Chart Review Chart Review: Acceptable Risk for Surgery and Patient NOT seen in Pre Admission Testing Heavy ETOH use: Patient reports 6 beers/day (afternoon/nighttime, no morning ETOH use) (Per previous anesthesia consultation 12/09/22) - Cardiac hx/case reviewed with Dr. Headley prior to left TCAR per anesthesia con sultation 12/09/22. He feels patient okay to proceed with given surgery as scheduled without further cardiac evaluation and/or testing from his perspective. -Infectious Disease screening: Per PAT nursing assessment on 12/19/22. No known infectious disease contacts in past 10 days or current infectious disease symptoms. No recent travel outside the country. Left TCAR 12/17/22= Done under [facility] with Grade 1 view with MAC #3. ETT #7.5. No anesthesia issues noted History Surgery Operation Date: 12/23/22 10:00 Proposed Procedures p Right Transcarotid Artery Revascularization - Efren Castrejon MD Height/Weight Height: 5 ft 10 in Weight: 72.575 kg Allergies Allergy/AdvReac Type Severity Reaction Status Date / Time No Known Allergies Allergy Verified 12/19/22 13:27 Medications Home Medications Medication Instructions Recorded Confirmed Last Taken Marijuana 1 inh inhalation DAILY 11/28/20 12/19/22 12/15/22 clopidogrel 75 mg tablet (Plavix) 75 mg PO QAM 11/28/20 12/19/22 12/16/22 06:00 lisinopril 2.5 mg tablet 2.5 mg PO QAM 11/28/20 12/19/22 12/17/22 06:00 pantoprazole 20 mg tablet,delayed 20 mg PO QAM 11/28/20 12/19/22 12/17/22 06:00 release atorvastatin 20 mg tablet (Lipitor) 20 mg PO QAM 12/03/22 12/19/22 12/16/22 06:00 aspirin 81 mg tablet,delayed 81 mg PO QAM 12/08/22 12/19/22 12/16/22 06:00 release oxycodone-acetaminophen 5 mg-325 1 tab PO Q8H PRN pain #14 tabs 12/18/22 12/19/22 Unknown mg tablet (Percocet) Past Medical History Medical History CAD (coronary artery disease) stents x2 2006 (LIZ tp Lcx, POM3) stents x1 2008 (mid OM3) No longer following with cardio Carotid artery disease Neck CTA (12/03/22): up to 50% proximal CHONG stenosis, 70% stenosis within proximal LICA GERD (gastroesophageal reflux disease) Controlled Gout Hx Hx of migraines Hyperlipidemia Hypertension LBBB (left bundle branch block) Chronic dating back to at least 2015 EKG (scanned into [email or web address]), subsequent echo 2020 PAD (peripheral artery disease) Stroke-like symptoms TIA (12/03/22, [facility] ER), no acute head imaging findings, noted to have significant carotid disease (reason for upcoming surgery) Past Family History Family History Father Family history of diabetes mellitus Uncle Family hx of colon cancer Past Surgical History Surgical History History of cardiac cath 2007- stents x2 2009- stent x1 History of cataract surgery R/L History of colonoscopy History of esophagogastroduodenoscopy (EGD) History of vascular surgery lRLE (2015) Left common fem artery endarterectomy (12/05/20): Grade 2 view, MAC#3, ETT 7.5 at [facility] 12/17/22 Lt Transcarotid artery revascularization Social History Smoking Status: Former smoker Do You Dip or Chew Tobacco: No Smoking End Date: 2015 Hx Alcohol Use: Yes Alcohol type: beer and hard liquor alcohol intake frequency: 3 or more drinks per day Hx Substance Use: Yes substance use type: marijuana Substance Use Type Other:: INHALATION ON WEEKENDS AND DAILY ON OCC Last Used Substance Other:: few times per week Lab Results Anesthesia Preop Results Results Anesthesia Widget: WBC 6.82 K/ul (4.8-10.8) 12/03/22 Hgb 12.3 g/dl (14.0-18.0) L 12/03/22 Hct 39.1 % (42.0-52.0) L 12/03/22 Plt 263 K/uL (130-400) 12/03/22 Na 136 mmol/L (136-145) 12/17/22 K 3.9 mmol/L (3.5-5.1) 12/17/22 Cl 102 mmol/L (98-107) 12/17/22 CO2 23 mmol/L (21-32) 12/17/22 BUN 16 mg/dl (6-23) 12/17/22 Creat 1.22 mg/dl (0.6-1.4) 12/17/22 Glucose Level 110 mg/dl (70-99(Fasting)) H 12/17/22 PT 11.4 Seconds (9.0-12.0) 12/03/22 PTT 26.7 Seconds (21.0-31.0) 12/03/22 INR 1.0 (0.9-1.1) 12/03/22 Blood Type A Positive 12/17/22 Antibody Screen NEGATIVE 12/17/22 Testing Electrocardiogram Date: 12/03/22 NSR at 98bpm. LBBB. No significant change compared to 12/03/20 per crosscutter rolled glass comparison. Chest X-Ray Date: 12/03/22 FINDINGS: No pneumothorax. No pleural effusions. There are low lung volumes. No focal lung consolidations to suggest a pneumonia. No evidence for pulmonary edema. No acute fractures identified. A small right azygos lobe is again noted. The cardiac silhouette is normal in size. IMPRESSION: No acute process. Echocardiogram Date: 07/25/20 EF 55 to 60%. No chamber enlargement. Diastolic Doppler mitral inflow patterns consistent with abnormal relaxation. No significant valvular disease. Mild concentric LVH. Other Testing Neck/head CTA Date: 12/03/22 FINDINGS: There is no mass, hematoma, midline shift, or acute infarct. Visualized intracranial internal carotid arteries, distal vertebral arteries, and basilar artery are widely patent. There is no significant stenosis, occlusion, or aneurysm seen within the bilateral ACAs, MCAs, or clinical resource nurse. There is a hypoplastic distal right vertebral artery. There is a persistent left posterior circulation. The major dural venous sinuses are patent. The aortic arch and proximal great vessels are widely patent. Mild focal narrowing at the takeoff of the right vertebral artery. The proximal left vertebral artery is not well visualized and may be severely hypoplastic or chronically occluded. The mid to distal left vertebral artery is severely hypoplastic. Severe calcified plaque within the distal bilateral common carotid arteries, carotid bifurcations, and proximal bilateral internal carotid arteries. There is severe stenosis within the distal right common carotid artery of 80-90%. There is up to 50% stenosis within the proximal right internal carotid artery artery. There is 70% stenosis within the proximal left internal carotid artery and multifocal stenosis of up to 80% within the distal left common carotid artery. IMPRESSION:No significant stenosis, occlusion, or aneurysm within the [place]. Multifocal stenosis within the distal bilateral common carotid arteries and proximal internal carotid arteries as described above due to the severe calcified plaque. The proximal left vertebral artery is not well visualized and may be severely hypoplastic or chronically occluded. The mid to distal left vertebral artery is severely hypoplastic. Head CT Date: 12/03/22 Findings: The paranasal sinuses and mastoid air cells are clear. The calvarium and skull base are intact. The ventricles and sulci are within normal limits. There is no mass, hematoma, midline shift, or acute infarct. Impression: No acute intracranial abnormality.
--- NOTE | 2022-12-23 07:50 | History & Physical Report ---
Date of Service December 23, 2022 History of Present Illness Primary Care Provider: Mckay Marin December 16, 2022 History of Present Illness Primary Care Provider: Mckay Marin Name: MARIANA KAHN Patient Number: [id number] : [id number] Date of Service: 12/08/2022 Chief Complaint: _Bilateral carotid stenosis HPI: _Mr. Kahn is a middle-age male who presents to Dr. Castrejon vascular surgery clinic today for a office visit to discuss severe bilateral ICA stenosis which was noted on some recent imaging. As you may remember, Mr. Kahn is followed by Dr. Castrejon for severe aortoiliac and peripheral arterial disease and has undergone multiple revascularization procedures. Mr. Kahn states that he had been complaining of sudden onset of the lower two thirds of his right eye vision turning black for up to 45 seconds a few times a week for the past 2 to 3 months. When he decided to see his eye doctor last week, they advised him to call our office as they were concerned about the symptoms possibly being related to his carotid arteries. Upon further questioning patient also states that his right arm has been having numbness lasting about 30 seconds each time over the past 2 weeks. When he called our office last week, we advised him to go to the emergency room for further evaluation. At the hospital, he was told that his brain scans were fine, and to follow-up with our office. Patient does state that he has been suffering from severe migraines for the past few months as well, but this does not always coincide with his eye or arm symptoms. He denies any difficulty speaking or swallowing, facial droop, sudden onset confusion, dizziness or syncope, or any extremity weakness. Patient does take 81 mg aspirin, Plavix, and atorvastatin daily and has for many years due to his severe arterial disease. Imaging: Patient's neck CTA performed at [facility] last week demonstrates 80% stenosis of his left ICA, and 70% stenosis of his right ICA. Current Home Meds: (Last Updated 12/08 13:18) SUMAtriptan (SUMAtriptan 50 mg oral tablet) 50 mg PO ONCE PRN: as needed for migraine headache aspirin (aspirin 81 mg oral delayed release tablet) 81 mg PO Daily atorvastatin (atorvastatin 40 mg oral tablet) 40 mg PO qhs cholecalciferol (cholecalciferol 25 mcg (1000 intl units) oral capsule) 25 mcg PO Daily clopidogrel (Plavix 75 mg oral tablet) 75 mg PO Daily fenofibrate (TriCor 145 mg oral tablet) 145 mg PO Daily lisinopril (lisinopril 2.5 mg oral tablet) 2.5 mg PO Daily pantoprazole (pantoprazole 40 mg oral delayed release tablet) 40 mg PO Daily Allergies and Sensitivities: No Known Medication Allergies Past Medical History: Problems: Bilateral carotid artery stenosis Peripheral arterial disease (atherosclerosis) (atherosclerosis) Peripheral cyanosis Paresthesia of foot CREST syndrome Scleroderma Telangiectasia Sclerodactyly Current tear of lateral cartilage or meniscus of knee Gout Hypertension Hyperlipidemia GERD (gastroesophageal reflux disease) CAD (coronary artery disease) OBJECTIVE Vitals: Last Updated 12/08/22 16:04 Date Temp BP Location Pulse RR SpO2 Pain 12/08/22 0 12/08/22 172/100 Left Arm 85 98 09/29/22 0 Vital Signs are the last 3 documented. No Orthostatic Data Available Height and Weight: Last Updated 12/08/22 13:20 Date BMI Wt(kg) Wt(lb) Method Ht(cm) (ft-in) Method 12/08/22 71.4 157 Standing Scale 04/16/20 73.9 163 Standing Scale 04/27/17 23.16 73.2 161 Standing Scale 177.8 5-10 Heights and Weights are the last 3 documented. Physical Exam Constitutional: In general patient is a healthy-appearing well-nourished well-developed middle-aged male no distress. He is alert and oriented without any focal deficits. His carotids do not demonstrate bruit. His heart is regular, his lungs are clear. His abdomen is soft and nontender with normoactive bowel sounds in all 4 quadrants. Brachial and radial pulses are +3. Femoral pulses are +2. Distal pulses are +1. He has brisk capillary refill and no sign of distal ischemia. ASSESSMENT: _ PLAN: _ 1 ) _severe bilateral ICA stenosis, symptomatic Patient CTA imaging does demonstrate significant bilateral ICA stenosis. He does have intermittent right eye symptoms consistent with right-sided amaurosis relating to the right ICA stenosis. He also has intermittent symptoms of right arm numbness, which is consistent with the left ICA stenosis. At this point we would recommend surgical intervention on both sides due to bilateral symptomatology. This cannot be done simultaneously, and so we will proceed with a left-sided intervention first due to severity of the stenosis and right arm symptoms. A long discussion was had with the patient regarding surgical intervention options including carotid endarterectomy versus transfemoral carotid stenting, versus transcarotid artery revascularization. Patient elects to proceed with left-sided TCAR, and we will plan to do this next week. The procedure risks benefits and alternatives were discussed with the patient by Dr. Castrejon. Patient expresses understanding and agreement to proceed. He was advised to call the office with any other questions. Thank you for letting us participate in the care of this patient. Signature Line Electronic Signature on File CC: Mckay Marin MD [facility]-[address], [address] [facility] [address] * Electronically Reviewed/Signed by: Ashly Min PA-C Author Signature Dt/Tm:12/08/2022 05:13 PM [facility] [place], [address] [place] [address] LM Result Type: HVI Outpt Note Date of Service: December 08, 2022 17:00 EDT Authorization Status: Final Author or Import Date: CINDY Min Lynn on December 08, 2022 17:13 EDT Verified By: CINDY Min Lynn on December 08, 2022 17:13 EDT Encounter info: [id number], [facility], Clinic, 12/08/2022 - 12/08/2022 Allergies Allergy/AdvReac Type Severity Reaction Status Date / Time No Known Allergies Allergy Verified 12/08/22 15:04 Home Medications Medication Instructions Recorded Confirmed Type Marijuana 1 inh inhalation DAILY 11/28/20 12/08/22 History clopidogrel 75 mg tablet (Plavix) 75 mg PO QAMB 11/28/20 12/08/22 History lisinopril 2.5 mg tablet 2.5 mg PO QAM 11/28/20 12/08/22 History pantoprazole 20 mg tablet,delayed 20 mg PO QAM 11/28/20 12/08/22 History releaseF atorvastatin 20 mg tablet 20 mg PO QAM 12/03/22 12/08/22 History sumatriptan succinate 50 mg tablet 50 mg PO UD PRN Migraine Headache 12/03/22 12/08/22 History aspirin 81 mg tablet,delayed 81 mg PO QAM 12/08/22 12/08/22 History release Past Med/Surg History Medical History(Updated 12/09/22 @ 11:59 by Caroline Craig) CAD (coronary artery disease) stents x2 2006 (LIZ tp Lcx, POM3) stents x1 2008 (mid OM3) No longer following with cardio, good functional status at PAT visit 12/03/20 with no cardiopulmonary complaints and recent echo done arotid artery disease Neck CTA (12/03/22): up to 50% proximal CHONG stenosis, 70% stenosis within proximal LICAGERD (gastroesophageal reflux disease) ControlledGout HxHx of migraines Hyperlipidemia Hypertension LBBB (left bundle branch block) Chronic dating back to at least 2015 EKG (scanned into [employer]), subsequent echo AD (peripheral artery disease) Stroke-like symptoms TIA (12/03/22, [facility] ER), no acute head imaging findings, noted to have significant carotid disease (reason for upcoming surgery) Surgical History(Updated 12/09/22 @ 11:54 by Caroline Craig) History of cardiac cath 2007- stents x2 2009- stent [id number] of cataract surgery R/LHistory of colonoscopy History of esophagogastroduodenoscopy (EGD) History of vascular surgery RLE (2015) Left common fem artery endarterectomy (12/05/20): Grade 2 view, MAC#3, ETT 7.5 at [facility] Family History Father Family history of diabetes mellitusUncle Family hx of colon cancer Social History Smoking Status: Former smoker Tobacco Type: Cigarettes Smoking End Date: Quit 2015; Second Hand Exposure: Yes (hx socially); Do You Dip or Chew Tobacco: No; Tobacco Cessation Education Requested by Patient: No Hx Alcohol Use: Yes Alcohol type: beer and hard liquor Hx Substance Use: Yes Substance Use Type Other:: INHALATION ON WEEKENDS AND DAILY ON OCC Preferred Language: [place] Communication Ability: Effective School Psychological Examiner Required: No Beliefs That Will Affect Care: None Current Living Situation: Family current occupational status: disabled Other Information That Helps Us Care for You: No Feels Safe at Home: Yes Safety Concerns: Feels Safe At This Time Assistive Devices: Denture - Upper Signed By: <Electronically signed by Efren Castrejon MD> 12/16/22 1106 Created:12/16/22 1106 The status of this report isSigned. Draft = Not yet reviewed or approved by Medical Physician. Signed = Reviewed and approved by Medical Physician. Allergies Allergy/AdvReac Type Severity Reaction Status Date / Time No Known Allergies Allergy Verified 12/19/22 13:27 Home Medications Medication Instructions Recorded Confirmed Type Marijuana 1 inh inhalation DAILY 11/28/20 12/19/22 History clopidogrel 75 mg tablet (Plavix) 75 mg PO QAM 11/28/20 12/19/22 History lisinopril 2.5 mg tablet 2.5 mg PO QAM 11/28/20 12/19/22 History pantoprazole 20 mg tablet,delayed 20 mg PO QAM 11/28/20 12/19/22 History release atorvastatin 20 mg tablet (Lipitor) 20 mg PO QAM 12/03/22 12/19/22 History aspirin 81 mg tablet,delayed 81 mg PO QAM 12/08/22 12/19/22 History release oxycodone-acetaminophen 5 mg-325 1 tab PO Q8H PRN pain #14 tabs 12/18/22 12/19/22 Rx mg tablet (Percocet) Past Med/Surg History Medical History CAD (coronary artery disease) stents x2 2006 (LIZ tp Lcx, POM3) stents x1 2008 (mid OM3) No longer following with cardio Carotid artery disease Neck CTA (12/03/22): up to 50% proximal CHONG stenosis, 70% stenosis within proximal LICA GERD (gastroesophageal reflux disease) Controlled Gout Hx Hx of migraines Hyperlipidemia Hypertension LBBB (left bundle branch block) Chronic dating back to at least 2015 EKG (scanned into [employer]), subsequent echo 2020 PAD (peripheral artery disease) Stroke-like symptoms TIA (12/03/22, [facility] ER), no acute head imaging findings, noted to have significant carotid disease (reason for upcoming surgery) Surgical History History of cardiac cath 2007- stents x2 2009- stent x1 History of cataract surgery R/L History of colonoscopy History of esophagogastroduodenoscopy (EGD) History of vascular surgery lRLE (2015) Left common fem artery endarterectomy (12/05/20): Grade 2 view, MAC#3, ETT 7.5 at [facility] 12/17/22 Lt Transcarotid artery revascularization Family History Father Family history of diabetes mellitus Uncle Family hx of colon cancer Social History Smoking Status: Former smoker Tobacco Type: Cigarettes Smoking End Date: 2015; Second Hand Exposure: Yes (hx-socially); Do You Dip or Chew Tobacco: No; Tobacco Cessation Education Requested by Patient: No Hx Alcohol Use: Yes Alcohol type: beer and hard liquor Hx Substance Use: Yes Last Used Substance Other:: few times per week Substance Use Type Other:: INHALATION ON WEEKENDS AND DAILY ON OCC Preferred Language: [place] Communication Ability: Effective [employer] Psychological Examiner Required: No Beliefs That Will Affect Care: None Current Living Situation: Family current occupational status: disabled Other Information That Helps Us Care for You: No Feels Safe at Home: Yes Safety Concerns: Feels Safe At This Time Assistive Devices: Denture - Upper
--- NOTE | 2022-12-23 07:51 | History & Physical Bridge Note ---
Date of Service December 23, 2022 History & Physical Bridge Note Patient had an uneventful left TCAR and now admitted for a left TCAR for a symptomatic carotid lesion. I have discussed the risks options and benefits of the procedure with the patient. The patient understands the risks options and benefits and agrees to the procedure. I have examined the patient, reviewed the History & Physical and in the interval since the performance of the History & Physical I have noted the following changes of clinical significance: no changes noted
[~2022-12-23 10:09] MED LIST changes: +ACETAMINOPHEN 1000 MG/100 ML IV IV ONE; -General Order Problem(s) SCH; +HEPARIN SOD (PORCINE) 1000 UNIT/ML ONE; +SODIUM CHLORIDE 0.9% 1,000 ML IV SCH; +[UNRECOGNIZED DRUG - REMARK] IV PRN
[2022-12-23] MEDS ORDERED: CLOPIDOGREL BISULFATE 75 MG TAB PO ONE (10:49)
[2022-12-23] MEDS ORDERED: ASPIRIN 81 MG ECTAB PO ONE (10:51)
[2022-12-23] MEDS ORDERED: ONDANSETRON INJ 2 MG/ML 2 ML VIAL IV PRN ×2 (11:39→17:23)
[2022-12-23] MEDS ORDERED: ePHEDrine sulfate 50 MG/ML AMP IV PRN (11:39)
[2022-12-23] MEDS ORDERED: ATROPINE SULFATE 0.1 MG/ML 10ML SYR IV PRN (11:39)
[2022-12-23] MEDS ORDERED: fentaNYL citrate PF 100 MCG/2 ML VIAL IV PRN (11:39)
[2022-12-23] MEDS ORDERED: MIDAZOLAM HCL 1 MG/ML 2ML VIAL ONE (11:41)
[2022-12-23] MEDS ORDERED: fentaNYL citrate PF 100 MCG/2 ML VIAL ONE ×2 (11:41→15:43)
[2022-12-23] MEDS ORDERED: PROPOFOL IV EMULSION 10 MG/ML 20 ML VIAL IV ONE ×2 (11:46→14:53)
[2022-12-23] MEDS ORDERED: LIDOCAINE 2% 2 ML VIAL/AMP(20MG/ML) INFIL ONE (11:46)
[2022-12-23] MEDS ORDERED: LARYING-O-JET KIT (LTA) ONE (11:46)
[2022-12-23] MEDS ORDERED: ONDANSETRON INJ 2 MG/ML 2 ML VIAL ONE (11:48)
[2022-12-23] MEDS ORDERED: ROCURONIUM BROMIDE 10 MG/ML 5 ML VIAL IV ONE ×2 (11:48→15:17)
[2022-12-23] MEDS ORDERED: ceFAZolin 330 MG/ML 1 GM VIAL ONE (13:45)
[2022-12-23] MEDS ORDERED: BUPIVACAINE/EPINEPHRINE 0.5% MPF 1:200,000 30 ML VIAL ONE (13:45)
[2022-12-23] MEDS ORDERED: GELATIN SPONGE SZ 100 ONE (13:45)
[2022-12-23] MEDS ORDERED: HEPARIN (PORCINE) 1000 UNIT/ML 10 ML (CATH LAB USE ONLY) ONE (13:45)
[2022-12-23] MEDS ORDERED: THROMBIN FOR SOLN 20000 UNIT KIT ONE (13:45)
[2022-12-23] MEDS ORDERED: PHENYLEPHRINE HCL 10 MG/ML VIAL ONE (14:36)
[2022-12-23] MEDS ORDERED: NITROGLYCERIN 5 MG/ML 10 ML VIAL ONE (14:36)
[2022-12-23] MEDS ORDERED: GLYCOPYRROLATE 0.2 MG/ML VIAL ONE (14:55)
[2022-12-23] MEDS ORDERED: PROTAMINE SULFATE 10 MG/ML 5 ML VIAL IV ONE (15:44)
[2022-12-23] MEDS ORDERED: SUGAMMADEX SODIUM 200 MG/2 ML VIAL IV ONE (15:45)
--- NOTE | 2022-12-23 15:53 | Post Operative Brief Note ---
Immediate Post Op Note v1 Date of Surgery December 23, 2022 Pre & Post Diagnosis Operation Date: 12/23/22 11:40 Pre-Op Diagnosis: Bilateral Internal Carotid Artery Stenosis Post-Op Diagnosis: Bilateral Internal Carotid Artery Stenosis I identified the patient and participated in the time-out.: Yes Procedure Operation Date: 12/23/22 11:40 Actual Procedures p Right Transcarotid Artery Revascularization, Ultrasound Localization Right Femoral Vein(Right) - Efren Castrejon MD Surgeon Efren Castrejon MD Manufacturing Support Engineer MD Aureliano LucianoMinarchick,PAC Estimated Blood Loss 50 Findings Consistent with Post-Op Diagnosis Anesthesia Type General Complications none Disposition Accompanied Patient To Recovery: No Disposition: Recovery Room
[2022-12-23] MEDS ORDERED: ARISTA ABSORBABLE HEMOSTAT 3GM TOP ONE (15:55)
--- NOTE | 2022-12-23 16:01 | Operative Report ---
Post Operative Report Pre & Post Diagnosis Operation Date: 12/23/22 11:40 Pre-Op Diagnosis: Bilateral Internal Carotid Artery Stenosis Post-Op Diagnosis: Bilateral Internal Carotid Artery Stenosis I identified the patient and participated in the time-out.: Yes Procedure Operation Date: 12/23/22 11:40 Actual Procedures p Right Transcarotid Artery Revascularization, Ultrasound Localization Right Femoral Vein(Right) - Efren Castrejon MD Surgeon Efren Castrejon MD Grinder Set Up Operator External MD Rosalie Lucianoarchtrip,PAC Estimated Blood Loss 50 Findings Consistent with Post-Op Diagnosis Severe stenosis of the right common and internal carotid artery prior to stenting. Following less 30% residual stenosis following carotid artery stent placement Fluids See Anesthesia Specimens None Drains None Anesthesia Type General Complications None Disposition Accompanied Patient To Recovery: Yes Indications Right symptomatic carotid artery stenosis Description of Procedure The patient was taken to the operating room and placed in supine position. After general anesthesia was accomplished the right-side of the neck and bilateral groin were prepped and draped in a sterile manner. A transverse 4cm incision was made on the right neck over the sternal and clavicular heads of the sternocleidomastoid muscle and below the omohyoid. Subcutaneous tissue and platysma were divided using electrocautery. Dissection using Metzenbaum scissors proceeded and the carotid sheath was identified medially. It was divided longitudinally. The common carotid artery was identified. The common carotid artery was mobilized with Metzenbaum scissors and umbilical tape was placed around the artery. Once sufficient length, about 2cm of the common carotid were mobilized, a 5-0 Proline suture was used to place a U-Stitch in the anterior surface of the right common carotid artery 7000U of heparin was then given to obtain an ACT > 250. A micropuncture needle was used to access the common carotid artery in the center of the U-stitch. The micropuncture wire was then advance 4cm into the common carotid artery and the micropuncture needle was removed. The micropuncture sheath was advanced 2-3cm into the common carotid artery and the wire and dilator were removed. Next a 0.035'' J guidewire was was inserted and placed just proximal to the right internal carotid artery lesion without engaging the lesion. The micropuncture sheath was exchanged over the guidewire and the Transcarotid Arterial Sheath was advanced to the 2.5cm marker in correct coaxial orientation and the J wire and dilator were removed. The Sheath was sutured to the patient and then flushed with heparinized saline. No air bubbles visualized during flushing Attention was turned to the right common femoral vein which was then accessed under ultrasound guidance using a micropuncture needle. This was exchanged for the Venous Return Sheath over the provided 0.035'' wire. Blood was aspirated from the flow line followed by flushing of the venous sheath with heparinized saline. The sheath was sutured in place to the patient's skin. The flow controller was connected to the Transcarotid arterial sheath. Arterial blood was allowed to passively fill the device completely to which it was then connected to the Venous return sheath. The flow controller was set to high. The common carotid artery proximal to the access point was then clamped with Rommell and flow reversal was confirmed. A right carotid angiogram was then performed and the right internal carotid artery lesion was marked. HR and systolic blood pressures were adequate with HR of about 80 and blood pressure between 140 and 160 systolic. The lesion was then crossed using a 0.014'' guidewire. The lesion was then pre-dilated using a 5mm x 35mm balloon. This balloon was then exchanged and primary stenting was performed with the Transcarotid stent, appropriately sized (8x40, 9x40mm). Post dilation was performed with a 5x35mm balloon to 14 ATMs. Completion carotid angiography demonstrated patent stent with <50% residual stenosis Antegrade flow was restored following release of the common carotid artery clamp. The arterial sheath was removed and U-Stitch tied. The femoral venous sheath was removed and pressure held for 5 min with adequate hemostasis. Adequate hemostasis was seen of the carotid artery. The wound was inspected and adequate hemostasis was obtained. It was then closed with a running 3-0 Vicryl suture for the platysmal layer and a 4-0 subcuticular Vicryl suture for the skin edges. Dermabond was used for dressing. Patient awoke from anesthesia without difficulties. Was neurovascularly intact, moving all extremities and following commands at case completion. The patient left the operating room in satisfactory condition and tolerated the procedure well A total of 31 mGy, 5.3 min of fluoroscopy time, and about 10cc of contrast were used during the procedure. I attest to the content of the Intraoperative Record and any orders documented therein. Any exceptions are noted below. Supervising Physician Co-Signing Physician Notes Efren Castrejon MD
[2022-12-23] MEDS ORDERED: LABETALOL HCL IV 5 MG/ML 20ML IV ONE (16:39)
--- NOTE | 2022-12-23 17:19 | Anesthesiology Progress Note ---
Date of Service December 23, 2022 Anesthesia Post Procedure Vital Signs Vital Signs: Temp Pulse Pulse Resp BP BP Pulse Ox 12/23/22 17:05 36.4 C L 73 16 142/72 H 146/85 H 96 12/23/22 16:55 74 16 139/87 137/70 95 12/23/22 16:45 74 16 140/85 138/70 96 12/23/22 16:35 79 16 143/86 H 139/70 96 12/23/22 16:25 36.0 C L 76 16 146/88 H 140/85 97 12/23/22 11:04 36.6 C 86 22 162/90 H 100 O2 Del Method 12/23/22 17:05 Room Air 12/23/22 16:55 Room Air 12/23/22 16:45 Room Air 12/23/22 16:35 Room Air 12/23/22 16:25 Room Air 12/23/22 11:04 Room Air Transfer of Care Handoff Completed per policy Notes Mental Status: alert / awake / arousable and participated in evaluation Patient Amnestic to Procedure: Yes Nausea / Vomiting: adequately controlled Pain: adequately controlled Airway Patency, RR, SpO2: stable & adequate BP & HR: stable & adequate Hydration State: stable & adequate Anesthetic Complications: no major complications apparent and Pt Satisfied with anesthetic care
[2022-12-23] MEDS ORDERED: oxyCODONE/ACETAMINOPHEN 5mg/325mg TAB PO PRN (17:23)
[2022-12-23] MEDS: ASPIRIN 81 MG ECTAB PO SCH (17:35)
[2022-12-23] MEDS: LACTATED RINGER'S 1,000 ML IV SCH (17:48)
[2022-12-23] MEDS ORDERED: VISIPAQUE IV ONE (18:37)
[2022-12-23] MEDS ORDERED: LABETALOL HCL IV 5 MG/ML 20ML IV STA (19:17)
--- NOTE | 2022-12-23 19:17 | Critical Care Consultation ---
Date of Consultation December 23, 2022 Assessment & Plan (1) Carotid artery stenosis: Status post TCAR. Incision dry and intact on exam, no neurological symptoms. Postop orders and antiplatelet agents per vascular surgery. We will monitor (2) Peripheral vascular disease: Continue ASA, Plavix (3) Hyperlipidemia: Continue statin (4) CAD (coronary artery disease): History of stent x 2 in 2006, stent x1 in 2008. Continue ASA, Plavix, statin (5) Hypertension: Continue blood pressure goals per vascular surgery History of Present Illness Attending Physician: Efren Castrejon MD History of Present Illness Patient is a 62-year-old male with past medical history of severe aortic iliac and peripheral artery disease, HTN, and aortic stenosis with symptoms of right eye vision loss. He has undergone multiple revascularization procedures and most recently a right-sided TCAR last week. Patient was recently diagnosed with bilateral carotid artery stenosis and he now presents to the ICU postop for left TCAR for which he underwent earlier this afternoon. On arrival to the ICU the patient is alert and oriented and hemodynamically stable. Patient states that he has not had any further neurological symptoms since he underwent the right- sided TCAR last week. He denies any headache, syncope, visual changes, numbness or tingling, changes in balance or gait. He denies recent illness or fevers, sore throat or shortness of breath, cough, chest pain, palpitations, abdominal p ain, nausea vomiting or diarrhea, swelling in hands or feet. Patient to remain in ICU overnight for postop monitoring following left TCAR. Allergies Allergy/AdvReac Type Severity Reaction Status Date / Time No Known Allergies Allergy Verified 12/23/22 10:29 Home Medications Medication Instructions Recorded Confirmed Type Marijuana 1 inh inhalation DAILY 11/28/20 12/23/22 History clopidogrel 75 mg tablet (Plavix) 75 mg PO QAM 11/28/20 12/23/22 History lisinopril 2.5 mg tablet 2.5 mg PO QAM 11/28/20 12/23/22 History pantoprazole 20 mg tablet,delayed 20 mg PO QAM 11/28/20 12/23/22 History release atorvastatin 20 mg tablet (Lipitor) 20 mg PO QAM 12/03/22 12/23/22 History aspirin 81 mg tablet,delayed 81 mg PO QAM 12/08/22 12/23/22 History release oxycodone-acetaminophen 5 mg-325 1 tab PO Q8H PRN pain #14 tabs 12/18/22 12/23/22 Rx mg tablet (Percocet) Patient History Medical History (Updated 12/23/22 @ 21:34 by SREE Fraser) CAD (coronary artery disease) stents x2 2006 (LIZ tp Lcx, POM3) stents x1 2008 (mid OM3) No longer following with cardio Carotid artery disease Neck CTA (12/03/22): up to 50% proximal CHONG stenosis, 70% stenosis within proximal LICA GERD (gastroesophageal reflux disease) Controlled Gout Hx Hx of migraines Hyperlipidemia Hypertension LBBB (left bundle branch block) Chronic dating back to at least 2015 EKG (scanned into [facility]obi), subsequent echo 2020 PAD (peripheral artery disease) Stroke-like symptoms TIA (12/03/22, [facility] ER), no acute head imaging findings, noted to have significant carotid disease (reason for upcoming surgery) Surgical History History of cardiac cath 2007- stents x2 2009- stent x1 History of cataract surgery R/L History of colonoscopy History of esophagogastroduodenoscopy (EGD) History of vascular surgery lRLE (2015) Left common fem artery endarterectomy (12/05/20): Grade 2 view, MAC#3, ETT 7.5 at [facility] 12/17/22 Lt Transcarotid artery revascularization Family History Father Family history of diabetes mellitus Uncle Family hx of colon cancer Social History Smoking Status: Former smoker Tobacco Type: Cigarettes Smoking End Date: 2015; Second Hand Exposure: Yes (hx-socially); Do You Dip or Chew Tobacco: No; Tobacco Cessation Education Requested by Patient: No Hx Alcohol Use: Yes Alcohol type: beer and hard liquor Hx Substance Use: Yes Last Used Substance Other:: few times per week Substance Use Type Other:: INHALATION ON WEEKENDS AND DAILY ON OCC Preferred Language: Croatian Communication Ability: Effective Spa Therapist Required: No Beliefs That Will Affect Care: None Current Living Situation: Family current occupational status: disabled Other Information That Helps Us Care for You: No Feels Safe at Home: Yes Safety Concerns: Feels Safe At This Time Assistive Devices: Denture - Upper Review of Systems Review of Systems: All systems reviewed & are unremarkable except as noted in HPI & below Physical Exam Constitutional: WD/WN, vitals as above Eyes: PERRL, conjunctivae normal, anicteric sclerae ENMT: external ear and nose normal, oropharynx normal Neck: trachea midline, no thyromegaly Respiratory: normal respiratory effort, lungs clear to auscultation Cardiovascular: RRR, no murmur, no edema Heart Sounds: normal S1 and normal S2; no murmur Extremities: normal capillary refill Gastrointestinal (Abdomen): normal bowel sounds, soft, nontender, no hepatosplenomegaly Musculoskeletal: no cyanosis or clubbing, extremities motor strength 5/5 Skin: no rashes, warm and dry Neurologic: PERRL, EOMI, accommodation nl, no face palsy, no dysarthria Psychiatric: A+Ox3, euthymic affect Results & Data Results & Data Vital Signs (Past 12 Hours) Vital Signs Temp Pulse Pulse Pulse Resp BP BP 12/23/22 18:30 94 H 21 170/102 H 12/23/22 18:15 71 18 167/94 H 12/23/22 18:00 75 18 164/97 H 12/23/22 17:45 68 21 157/91 H 12/23/22 17:30 69 19 161/92 H 12/23/22 17:22 78 16 148/90 H 12/23/22 17:15 78 14 157/104 H 12/23/22 17:15 36.4 C L 12/23/22 17:05 36.4 C L 73 16 142/72 H 12/23/22 16:55 74 16 139/87 12/23/22 16:45 74 16 140/85 12/23/22 16:35 79 16 143/86 H 12/23/22 16:25 36.0 C L 76 16 146/88 H 12/23/22 11:04 36.6 C 86 22 162/90 H BP Pulse Ox O2 Del Method 12/23/22 18:30 99 Room Air 12/23/22 18:15 100 Room Air 12/23/22 18:00 98 Room Air 12/23/22 17:45 95 Room Air 12/23/22 17:30 98 Room Air 09/12/23 17:22 100 Room Air 12/23/22 17:15 100 Room Air 12/23/22 17:15 12/23/22 17:05 146/85 H 96 Room Air 12/23/22 16:55 137/70 95 Room Air 12/23/22 16:45 138/70 96 Room Air 12/23/22 16:35 139/70 96 Room Air 12/23/22 16:25 140/85 97 Room Air 12/23/22 11:04 100 Room Air Coding Level of Care Code 12416 IN/OBS CONSULT LVL 2,35M Diagnoses Carotid artery stenosis I65.29 Peripheral vascular disease I73.9 Hyperlipidemia E78.5 CAD (coronary artery disease) I25.10 Hypertension I10 Time Spent (min) 40
[2022-12-24] MEDS: ceFAZolin 2000MG 2,000 MG/15 ML SYR IV SCH ×2 (00:09→06:39)
[2022-12-24] MEDS: LACTATED RINGER'S 1,000 ML IV SCH (02:05)
[2022-12-24] MEDS ORDERED: ATORVASTATIN 20 MG TAB PO SCH (09:00)
[2022-12-24] MEDS ORDERED: CLOPIDOGREL BISULFATE 75 MG TAB PO SCH (09:00)
[2022-12-24] MEDS ORDERED: PANTOprazole 40 MG TAB PO SCH ×2 (09:00)
[2022-12-24] MEDS ORDERED: lisinopril 2.5 MG TAB PO SCH (09:00)
[2022-12-24] MEDS ORDERED: ASPIRIN 81 MG ECTAB PO SCH (09:00)
[2022-12-24] MEDS: ASPIRIN 81 MG ECTAB PO SCH (09:04)
--- NOTE | 2022-12-24 13:44 | Surgery Progress Note ---
Date of Service December 24, 2022 Assessment & Plan (1) Carotid artery stenosis: Plan: Pt now POD #1 after R TCAR, 1 week s/p L TCAR. Pt doing well post op. OK for d/c home today. Will follow up in 2 weeks in office. Admission and Anticipated Discharge Date Admission Date: December 23, 2022 Subjective 62 yo m POD #1 after R TCAR, seen in f/u today. Pt states feeling ok. Admits some pain in R neck incision, but otherwise no complaitns. Review of Systems Review of Systems: All systems reviewed & are unremarkable except as noted in HPI & below Physical Exam Constitutional: WD/WN, vitals as above Neck: trachea midline BL supraclavicualr incisions C/D/I, mild swelling R side, +tender Respiratory: normal respiratory effort, lungs clear to auscultation Auscultation: + diminished lung sounds Cardiovascular: Rate/Rhythm: regular rate and regular rhythm Vessels: femoral pulses present, posterior tibial pulses present, dorsalis pedis pulses present and radial pulses present; + abnormal peripheral pulses Extremities: normal capillary refill Gastrointestinal (Abdomen): Inspection/Auscultation: abdomen normal to inspection and normal bowel sounds Percussion/Palpation: abdomen soft; abdomen nontender Musculoskeletal: no cyanosis or clubbing, extremities motor strength 5/5 Skin: no rashes, warm and dry Psychiatric: A+Ox3, euthymic affect Results & Data Vital Signs (Past 12 Hours) Vital Signs Temp Pulse Pulse Resp BP BP BP 12/24/22 13:33 37.0 C 73 15 142/72 H 146/85 H 12/24/22 11:00 85 15 12/24/22 11:00 126/80 12/24/22 10:00 99 H 20 12/24/22 10:00 137/109 H 12/24/22 09:00 100 H 21 12/24/22 09:00 140/83 12/24/22 08:00 96 H 20 12/24/22 08:00 158/85 H 12/24/22 07:00 78 24 12/24/22 07:00 156/100 H 12/24/22 08:00 73 12/24/22 06:00 89 20 145/85 H 12/24/22 06:00 145/85 H 12/24/22 05:00 75 17 153/90 H 12/24/22 05:00 153/90 H 12/24/22 04:00 86 13 12/24/22 04:00 166/91 H 12/24/22 04:02 37.0 C 12/24/22 03:00 72 18 142/90 H 12/24/22 03:00 142/90 H 12/24/22 02:00 80 13 141/80 H 12/24/22 02:00 141/80 H Pulse Ox O2 Del Method 12/24/22 13:33 85 L 12/24/22 11:00 12/24/22 11:00 12/24/22 10:00 12/24/22 10:00 12/24/22 09:00 85 L 12/24/22 09:00 12/24/22 08:00 98 12/24/22 08:00 12/24/22 07:00 96 Room Air 12/24/22 07:00 12/24/22 08:00 12/24/22 06:00 97 12/24/22 06:00 12/24/22 05:00 97 12/24/22 05:00 12/24/22 04:00 97 12/24/22 04:00 12/24/22 04:02 12/24/22 03:00 98 12/24/22 03:00 12/24/22 02:00 97 12/24/22 02:00
--- NOTE | 2022-12-24 13:48 | Discharge Summary ---
Date of Service December 24, 2022 Admission HPI Per Admitting Provider December 16, 2022 History of Present Illness Primary Care Provider: Mckay Marin Name: MARIANA KAHN Patient Number: [id number] : [id number] Date of Service: 12/08/2022 Chief Complaint: _Bilateral carotid stenosis HPI: _Mr. Kahn is a middle-age male who presents to Dr. Castrejon vascular surgery clinic today for a office visit to discuss severe bilateral ICA stenosis which was noted on some recent imaging. As you may remember, Mr. Kahn is followed by Dr. Castrejon for severe aortoiliac and peripheral arterial disease and has undergone multiple revascularization procedures. Mr. Kahn states that he had been complaining of sudden onset of the lower two thirds of his right eye vision turning black for up to 45 seconds a few times a week for the past 2 to 3 months. When he decided to see his eye doctor last week, they advised him to call our office as they were concerned about the symptoms possibly being related to his carotid arteries. Upon further questioning patient also states that his right arm has been having numbness lasting about 30 seconds each time over the past 2 weeks. When he called our office last week, we advised him to go to the emergency room for further evaluation. At the hospital, he was told that his brain scans were fine, and to follow-up with our office. Patient does state that he has been suffering from severe migraines for the past few months as well, but this does not always coincide with his eye or arm symptoms. He denies any difficulty speaking or swallowing, facial droop, sudden onset confusion, dizziness or syncope, or any extremity weakness. Patient does take 81 mg aspirin, Plavix, and atorvastatin daily and has for many years due to his severe arterial disease. Imaging: Patient's neck CTA performed at [facility] last week demonstrates 80% stenosis of his left ICA, and 70% stenosis of his right ICA. Current Home Meds: (Last Updated 12/08 13:18) SUMAtriptan (SUMAtriptan 50 mg oral tablet) 50 mg PO ONCE PRN: as needed for migraine headache aspirin (aspirin 81 mg oral delayed release tablet) 81 mg PO Daily atorvastatin (atorvastatin 40 mg oral tablet) 40 mg PO qhs cholecalciferol (cholecalciferol 25 mcg (1000 intl units) oral capsule) 25 mcg PO Daily clopidogrel (Plavix 75 mg oral tablet) 75 mg PO Daily fenofibrate (TriCor 145 mg oral tablet) 145 mg PO Daily lisinopril (lisinopril 2.5 mg oral tablet) 2.5 mg PO Daily pantoprazole (pantoprazole 40 mg oral delayed release tablet) 40 mg PO Daily Allergies and Sensitivities: No Known Medication Allergies Past Medical History: Problems: Bilateral carotid artery stenosis Peripheral arterial disease (atherosclerosis) (atherosclerosis) Peripheral cyanosis Paresthesia of foot CREST syndrome Scleroderma Telangiectasia Sclerodactyly Current tear of lateral cartilage or meniscus of knee Gout Hypertension Hyperlipidemia GERD (gastroesophageal reflux disease) CAD (coronary artery disease) OBJECTIVE Vitals: Last Updated 12/08/22 16:04 Date Temp BP Location Pulse RR SpO2 Pain 12/08/22 0 12/08/22 172/100 Left Arm 85 98 09/29/22 0 Vital Signs are the last 3 documented. No Orthostatic Data Available Height and Weight: Last Updated 12/08/22 13:20 Date BMI Wt(kg) Wt(lb) Method Ht(cm) (ft-in) Method 12/08/22 71.4 157 Standing Scale 04/16/20 73.9 163 Standing Scale 04/27/17 23.16 73.2 161 Standing Scale 177.8 5-10 Heights and Weights are the last 3 documented. Physical Exam Constitutional: In general patient is a healthy-appearing well-nourished well- developed middle-aged male no distress. He is alert and oriented without any focal deficits. His carotids do not demonstrate bruit. His heart is regular, his lungs are clear. His abdomen is soft and nontender with normoactive bowel sounds in all 4 quadrants. Brachial and radial pulses are +3. Femoral pulses are +2. Distal pulses are +1. He has brisk capillary refill and no sign of distal ischemia. ASSESSMENT: _ PLAN: _ 1 ) _severe bilateral ICA stenosis, symptomatic Patient CTA imaging does demonstrate significant bilateral ICA stenosis. He does have intermittent right eye symptoms consistent with right-sided amaurosis relating to the right ICA stenosis. He also has intermittent symptoms of right arm numbness, which is consistent with the left ICA stenosis. At this point we would recommend surgical intervention on both sides due to bilateral symptomatology. This cannot be done simultaneously, and so we will proceed with a left-sided intervention first due to severity of the stenosis and right arm symptoms. A long discussion was had with the patient regarding surgical intervention options including carotid endarterectomy versus transfemoral carotid stenting, versus transcarotid artery revascularization. Patient elects to proceed with left-sided TCAR, and we will plan to do this next week. The procedure risks benefits and alternatives were discussed with the patient by Dr. Castrejon. Patient expresses understanding and agreement to proceed. He was advised to call the office with any other questions. Thank you for letting us participate in the care of this patient. Signature Line Electronic Signature on File CC: Mckay Marin MD [facility], [address] [facility] [address] * Electronically Reviewed/Signed by: Ashly Min PA-C Author Signature Dt/Tm:12/08/2022 05:13 PM [facility] [place], [address] [place] [address] LM Result Type: HVI Outpt Note Date of Service: December 08, 2022 17:00 EDT Authorization Status: Final Author or Import Date: CINDY Min Lynn on December 08, 2022 17:13 EDT Verified By: CINDY Min Lynn on December 08, 2022 17:13 EDT Encounter info: [id number], [facility], Clinic, 12/08/2022 - 12/08/2022 Allergies Allergy/AdvReac Type Severity Reaction Status Date / Time No Known Allergies Allergy Verified 12/08/22 15:04 Home Medications Medication Instructions Recorded Confirmed Type Marijuana 1 inh inhalation DAILY 11/28/20 12/08/22 History clopidogrel 75 mg tablet (Plavix) 75 mg PO QAM 11/28/20 12/08/22 History lisinopril 2.5 mg tablet 2.5 mg PO QAM 11/28/20 12/08/22 History pantoprazole 20 mg tablet,delayed 20 mg PO QAM 11/28/20 12/08/22 History release atorvastatin 20 mg tablet 20 mg PO QAM 12/03/22 12/08/22 History sumatriptan succinate 50 mg tablet 50 mg PO UD PRN Migraine Headache 12/03/22 12/08/22 History aspirin 81 mg tablet,delayed 81 mg PO QAM 12/08/22 12/08/22 History release Past Med/Surg History Medical History(Updated 12/09/22 @ 11:59 by Caroline Craig) CAD (coronary artery disease) stents x2 2006 (LIZ tp Lcx, POM3) stents x1 2008 (mid OM3) No longer following with cardio, good functional status at PAT visit 12/03/20 with no cardiopulmonary complaints and recent echo done arotid artery disease Neck CTA (12/03/22): up to 50% proximal CHONG stenosis, 70% stenosis within proximal LICAGERD (gastroesophageal reflux disease) ControlledGout HxHx of migraines Hyperlipidemia Hypertension LBBB (left bundle branch block) Chronic dating back to at least 2015 EKG (scanned into [employer]), subsequent echo AD (peripheral artery disease) Stroke-like symptoms TIA (12/03/22, [facility] ER), no acute head imaging findings, noted to have significant carotid disease (reason for upcoming surgery) Surgical History(Updated 12/09/22 @ 11:54 by Caroline Craig) History of cardiac cath 2007- stents x2 2009- stent [id number] of cataract surgery R/LHistory of colonoscopy History of esophagogastroduodenoscopy (EGD) History of vascular surgery RLE (2015) Left common fem artery endarterectomy (12/05/20): Grade 2 view, MAC#3, ETT 7.5 at [facility] Family History Father Family history of diabetes mellitusUncle Family hx of colon cancer Social History Smoking Status: Former smoker Tobacco Type: Cigarettes Smoking End Date: Quit 2015; Second Hand Exposure: Yes (hx socially); Do You Dip or Chew Tobacco: No; Tobacco Cessation Education Requested by Patient: No Hx Alcohol Use: Yes Alcohol type: beer and hard liquor Hx Substance Use: Yes Substance Use Type Other:: INHALATION ON WEEKENDS AND DAILY ON OCC Preferred Language: Citizen Of [place] Communication Ability: Effective Bruise Trimmer Required: No Beliefs That Will Affect Care: None Current Living Situation: Family current occupational status: disabled Other Information That Helps Us Care for You: No Feels Safe at Home: Yes Safety Concerns: Feels Safe At This Time Assistive Devices: Denture - Upper Signed By: <Electronically signed by Efren Castrejon MD> 12/16/22 1106 Created:12/16/22 110 The status of this report isSigned. Draft = Not yet reviewed or approved by Medical Physician. Signed = Reviewed and approved by Medical Physician. Admission Exam Per Admitting Provider Constitutional: In general patient is a healthy-appearing well-nourished well- developed middle-aged male no distress. He is alert and oriented without any focal deficits. His carotids do not demonstrate bruit. His heart is regular, his lungs are clear. His abdomen is soft and nontender with normoactive bowel sounds in all 4 quadrants. Brachial and radial pulses are +3. Femoral pulses are +2. Distal pulses are +1. He has brisk capillary refill and no sign of distal ischemia. Principal Diagnosis 1. s/p R TCAR 2. BL ICA stenosis Discharge Exam Constitutional WD/WN, vitals as above Neck trachea midline Respiratory normal respiratory effort, lungs clear to auscultation Auscultation: + diminished lung sounds Cardiovascular Rate/Rhythm: regular rate and regular rhythm Vessels: femoral pulses present, posterior tibial pulses present, dorsalis pedis pulses present and radial pulses present; + abnormal peripheral pulses Extremities: normal capillary refill Gastrointestinal (Abdomen) Inspection/Auscultation: abdomen normal to inspection and normal bowel sounds Percussion/Palpation: abdomen soft; abdomen nontender Musculoskeletal no cyanosis or clubbing, extremities motor strength 5/5 Skin no rashes, warm and dry Psychiatric A+Ox3, euthymic affect Discharge Data Allergies Allergy/AdvReac Type Severity Reaction Status Date / Time No Known Allergies Allergy Verified 12/23/22 10:29 Consultations 12/23/22 17:23 Consult Fire Observer Routine Procedures Performed Operation Date: 12/23/22 11:40 Actual Procedures p Right Transcarotid Artery Revascularization, Ultrasound Localization Right Femoral Vein(Right) - Efren Castrejon MD Ordered Studies 12/23/22 07:13 EV angio carotid cerv RT Routine US EV guide vascular access Routine Hospital Course (1) Carotid artery stenosis: Pt now POD #1 after R TCAR, 1 week s/p L TCAR. Pt doing well post op. OK for d/c home today. Will follow up in 2 weeks in office. Total Time Total Time Spent Total Time Spent (In Minutes): 0 Discharge Plan Discharge Items Patient Disposition: Home - Self-Care Reason For Visit: Bilateral Internal Carotid Artery Stenosis Discharge Diagnosis: Right internal carotid artery stenosis Activity: Per Instructions section Non-emergency contact: Surgeon Call non-emergency contact if: your temperature is above 101.5, your wound has increased redness, your wound has increased drainage and your wound pain has increased Follow-up/Referrals: Mckay Marin [Primary Care Provider] - Diet: Heart Healthy Addtl Attending Provider Instructions: SPECIAL CARE INSTRUCTIONS: Medications: * Continue to take Aspirin, plavix and statin as directed. Incision Care: * You may shower, but do not rub incision. You may let the warm soapy water run over it. Be sure to dry the incision well after bathing. * Do not shave directly over the incision until it is healed. * DO NOT IMMERSE THE INCISION IN A TUB/POOL/etc. UNTIL HEALED. Restrictions: * Do not drive for at least one week or if you are still taking any narcotic pain medication. * Do not lift anything heavier than a gallon of milk for one week after going home. Possible Complications: * Numbness - It is normal to have some numbness around the incision. Numbness can extend beyond the incision to areas of the neck, ear and face. The numbness is due to bruising of nerves during the surgery and will gradually improve over a period of months. * Hoarseness/Difficulty Speaking and Swallowing - The bruising of nerves in the neck can also cause a hoarse voice, difficulty speaking or swallowing. This may improve over time, HOWEVER, if it continues for more than a few days please contact our office ([phone]). * Excessive Swelling - There will be some swelling immediately after surgery which usually resolves within one week. If you notice that the swelling is getting worse, notify your surgeon ([phone]). * Drainage/Bleeding - If there is any drainage or bleeding, it should be a very small amount (less than a teaspoon per day). If you have excessive bleeding or drainage from the incision, call your surgeon ([phone]) right away. ACTIVATION OF EMERGENCY MEDICAL SYSTEM: Call 911, immediately, if you experience any of the following: Warning Signs and Symptoms of Stroke: * Sudden numbness or weakness of the face, arm or leg, especially on one side of the body * Sudden confusion, trouble speaking or understanding * Sudden trouble seeing in one or both eyes * Sudden trouble walking, dizziness, loss of balance or coordination * Sudden severe headache with no cause Do not delay calling 911 if you experience any warning signs or symptoms of a stroke. Delay in seeking medical attention may affect what treatments can be given to you. Risk Factors for Stroke: You can reduce your chances of stroke by working with your medical provider to adopt a healthy lifestyle. Some specific ways to lower your chance of stroke are: * If you are a smoker, now is the time to stop smoking cigarettes * If you are diabetic, improve the control of your blood sugars * Avoid excessive amounts of alcohol * Control high blood pressure * Lose weight if you are overweight * Be sure to lead an active lifestyle * Eat a healthy diet low in salt, cholesterol and fat You should know about other risk factors for stroke that you are unable to control. These include: * Age 55 years or older * Male gender * Certain racial groups: , or / * Family History of Stroke, Mini stroke or Heart Attack * Sickle Cell Disease You will be receiving a call from the Vascular Surgery Nurse after you are discharged. FOLLOW UP VISIT: It is important for you to keep your follow up appointments with your medical provider. Keep any scheduled doctor appointments. Call [phone] to schedule a follow up appointment if one not already scheduled. Pending Studies at Discharge: No Stand-Alone Forms: My [facility], Smoking Cessation Medications and DC Order Prescriptions: Continued aspirin 81 mg tablet,delayed release (DR/EC) 81 mg PO QAM oxycodone-acetaminophen [Percocet] 5-325 mg tablet 1 tab PO Q8H PRN (Reason: pain) Qty: 14 0RF clopidogrel [Plavix] 75 mg Tablet 75 mg PO QAM pantoprazole 20 mg Tablet,Delayed Release (Dr/Ec) 20 mg PO QAM lisinopril 2.5 mg Tablet 2.5 mg PO QAM Marijuana 1 inh inhalation DAILY atorvastatin [Lipitor] 20 mg tablet 20 mg PO QAM Discharge Orders: Discharge Order (Routine); Ordered 12/24/22 Ordered By: Efren Castrejon Admission Data Admit Date/Time: 12/23/22 10:52 Attending Provider: Efren Castrejon Admit Provider: Efren Castrejon Primary Care Provider: Mckay Marin Other Providers: Trell Stahl ; Luis Alberto Reno ; Guevara Tucker ; Sourav Hinojosa ; Randolph Lopez ; Damian Costa ; Caroline Minaya ; Koif Ovalle ; Jemma Fields ; Danni Craft ; Christopher Jordan ; Suhk Roth Other Interventions: Discharge Summary Assessment (RN) Last Done: 12/24/22 13:33
== END 2022-12-24 14:52 | disposition home or self-care (01) | DRG 36 ==
LOC: ASU 10:09 → 1E 10:52
PROC: EV.TCAR (2022-12-23 11:40)

== ENCOUNTER 2024-12-20 08:54 | Inpatient (IN) ==
--- NOTE | 2024-12-19 08:42 | Anesthesiology Consultation ---
Date of Service December 19, 2024 Assessment & Plan (1) Encounter for pre-operative examination: Plan - surgeon ordered testing to be done DOS per Staci Brewer with surgeon's office: CBC with diff, CMP, coags, type and screen, EKG and CXR ordered. Ultimate determination on patient proceeding is pending assigned anesthesiologist review of testing DOS. - heavy ETOH use: 6 beers daily. - s/p right TCAR 12/23/2223 Grade 1 view, MAC 3, ETT 8. - Per acid cleaner on 12/14/24: No known infectious disease contacts, current infectious disease symptoms in past 10 days or COVID positive test result in the past 30 days. Chart Review Chart Review: Patient NOT seen in Pre Admission Testing History Surgery Operation Date: 12/20/24 10:20 Proposed Procedures p Right Transcarotid Artery Revascularization - Efren Castrejon MD Height/Weight Height: 5 ft 10 in Weight: 72.575 kg Allergies Allergy/AdvReac Type Severity Reaction Status Date / Time No Known Allergies Allergy Verified 12/14/24 08:01 Medications Home Medications Medication Instructions Recorded Confirmed Last Taken Marijuana 1 inh inhalation DAILY 11/28/20 12/14/24 07/09/24 21:00 clopidogrel 75 mg tablet (Plavix) 75 mg PO QAM 11/28/20 12/14/24 07/11/24 04:00 lisinopril 2.5 mg tablet 2.5 mg PO QAM 11/28/20 12/14/24 07/11/24 04:00 pantoprazole 20 mg tablet,delayed 20 mg PO QAM 11/28/20 12/14/24 07/11/24 04:00 release atorvastatin 20 mg tablet (Lipitor) 20 mg PO QAM 12/03/22 12/14/24 07/11/24 04:00 aspirin 81 mg tablet,delayed 81 mg PO QAM 12/08/22 12/14/24 07/11/24 04:00 release gabapentin 100 mg capsule 200 mg PO QAM 12/14/24 12/14/24 Unknown balkbcqifzpn-nmmptxig-tsxmkz tablet 1 tab PO QAM 12/14/24 12/14/24 Unknown Past Medical History Medical History (Updated 12/19/24 @ 08:44 by Mayda Jo PA-C) CAD (coronary artery disease) stents x2 2006 (ILZ tp Lcx, POM3) stents x1 2008 (mid OM3) No longer following with cardio Carotid artery disease Neck CTA (12/03/22): up to 50% proximal CHONG stenosis, 70% stenosis within proximal LICA Claudication in peripheral vascular disease Eye problem right eye vision loss-comes and goes, with migraines GERD (gastroesophageal reflux disease) Controlled Gout Hx History of myocardial infarction (2006) Hx of migraines Hyperlipidemia Hypertension LBBB (left bundle branch block) Chronic dating back to at least 2015 EKG (scanned into [employer]), subs equent echo 2020, no longer follows with cardiology [employer] intermediary (current) use of antithrombotics/antiplatelets PAD (peripheral artery disease) Peripheral vascular disease Presence of internal carotid stent Stroke-like symptoms TIA (12/03/22, [facility]), no acute head imaging findings, noted to have significant carotid disease (reason for upcoming surgery) Past Family History Family History Father Family history of diabetes mellitus Uncle Family hx of colon cancer Past Surgical History Surgical History History of cardiac cath 2007- stents x2 2009- stent x1 no longer follows with cardiology History of cataract surgery R/L History of colonoscopy History of esophagogastroduodenoscopy (EGD) History of vascular surgery lRLE (2015) Left common fem artery endarterectomy (12/05/20): Grade 2 view, MAC#3, ETT 7.5 at [facility] 12/17/22 Lt Transcarotid artery revascularization Social History Smoking Status: Former smoker Do You Dip or Chew Tobacco: No Smoking End Date: 2015 Hx Alcohol Use: Yes Alcohol type: beer, wine and hard liquor alcohol intake frequency: 3 or more drinks per day Alcohol Intake Frequency Comment: 6/day Hx Substance Use: Yes substance use type: marijuana Substance Use Type Other:: medical marijuana-advised Last Used Substance: Days (ago) Last Used Substance Other:: last used was last evening Testing Echocardiogram Date: 07/25/20 EF 55-60% No structural valvular abnormalities Mild LVH Other Testing Neck CTA 12/02/24 1. Severe in-stent stenosis distally at the internal carotid artery stents bilaterally. 2. Otherwise as described. Head CTA 12/03/22 1. No significant stenosis, occlusion, or aneurysm within the [place]. 2. Multifocal stenosis within the distal bilateral common carotid arteries and proximal internal carotid arteries as described above due to the severe calcified plaque. 3. The proximal left vertebral artery is not well visualized and may be severely hypoplastic or chronically occluded. The mid to distal left vertebral artery is severely hypoplastic.
--- NOTE | 2024-12-19 14:18 | History & Physical Report ---
Date of Service December 19, 2024 History of Present Illness Primary Care Provider: Mckay Marin Name: MARIANA KAHN Patient Number: [id number] : 1960 Date of Service: 12/05/2024 Chief Complaint: _Follow-up after CTA HPI: _Mr. Kahn is a middle-age male presents to Dr. Castrejon's vascular surgery clinic today for an appointment after undergoing a CTA neck due to new amaurosis symptoms in the right eye. Patient states that about a month ago he began having right eye symptoms of transient vision loss, the last event occurring about 3 weeks ago. These are similar to the symptoms that he was experiencing prior to undergoing his bilateral TCAR procedures in 2022. Patient denies any other cerebrovascular symptoms presently, including facial droop, difficulty speaking or swallowing, unilateral extremity weakness numbness or tingling, sudden onset confusion. CTA of the neck performed at [facility] on 12/02/2024 demonstrates severe in-stent restenosis at the distal end of his ICA stents. Current Home Meds: (Last Updated 12/05 14:04) SUMAtriptan (SUMAtriptan 50 mg oral tablet) 50 mg PO ONCE PRN: as needed for migraine headache aspirin (aspirin 81 mg oral delayed release tablet) 81 mg PO Daily atorvastatin (atorvastatin 40 mg oral tablet) 40 mg PO qhs cholecalciferol (cholecalciferol 25 mcg (1000 intl units) oral capsule) 25 mcg PO Daily clopidogrel (Plavix 75 mg oral tablet) 75 mg PO Daily fenofibrate (TriCor 145 mg oral tablet) 145 mg PO Daily gabapentin (gabapentin 100 mg oral capsule) 200 mg PO Daily lisinopril (lisinopril 2.5 mg oral tablet) 2.5 mg PO Daily pantoprazole (pantoprazole 40 mg oral delayed release tablet) 40 mg PO Daily Allergies and Sensitivities: No Known Medication Allergies Past Medical History: Problems: (atherosclerosis) Bilateral carotid artery stenosis (atherosclerosis) Internal carotid artery stent present Peripheral arterial disease Peripheral cyanosis Paresthesia of foot CREST syndrome Scleroderma Telangiectasia Sclerodactyly Current tear of lateral cartilage or meniscus of knee Gout Hypertension Hyperlipidemia GERD (gastroesophageal reflux disease) CAD (coronary artery disease) OBJECTIVE Vitals: Last Updated 12/05/24 14:06 Date Temp BP Location Pulse RR SpO2 Pain 12/05/24 128/68 Right Arm 90 18 97 0 08/02/24 0 08/02/24 132/76 Right Arm 93 96 Vital Signs are the last 3 documented. No Orthostatic Data Available Height and Weight: Last Updated 12/05/24 14:06 Date BMI Wt(kg) Wt(lb) Method Ht(cm) (ft-in) Method 12/05/24 71.8 158 Standing Scale 08/02/24 73.8 162 Standing Scale 12/08/22 71.4 157 Standing Scale Heights and Weights are the last 3 documented. Physical Exam Constitutional: In general patient is a healthy-appearing well-nourished well- developed millage male no distress. Alert and oriented with no focal deficits. His bilateral carotids demonstrate faint bruits. His heart is regular, lungs are decreased but clear. Radial pulses are +3. Lower extremities the pulses are +1. He has brisk capillary refill and no sign of distal ischemia. ASSESSMENT: _ PLAN: _ 1 ) _bilateral ICA stenosis, restenosis of carotid stents Patient does have new onset of symptoms concerning for right eye amaurosis. He does have severe in-stent restenosis noted on the CTA neck. Patient was discussed with Dr. Castrejon, who recommends that patient undergo a redo carotid TCAR in the next 1 to 2 weeks. The procedure risks benefits and alternatives were discussed with the patient by myself at Dr. Castrejon's request. Patient present understanding and agreement to proceed. He will call with any other questions. Thank you for letting us participate in the care of this patient. I have personally spent_39__ minutes performing xmkz-ex-mekt and ytw-pifp-eg-face activities on this date of service.Time does not include separately reported services. Activities Include: _x_ review of the medical record _x_ obtaining a history _x_ physical exam/evaluation __ review labs _x_ review radiology reports _x_ counseling/educating patient/family/caregiver __ discussion/referral to other healthcare professional _x_ documenting care in the medical record __ independent interpretation of results _x_ communication of results to patient/family/caregiver _x_ coordination of care Signature Line Electronic Signature on File CC: Mckay Marin MD [facility], [address] [facility] [address] * Electronically Reviewed/Signed by: Ashly Min PA-C Author Signature Dt/Tm:12/05/2024 04:19 PM [facility] [place] [address], [address] [place] [address] LM Result Type: HVI Outpt Note Date of Service: December 05, 2024 15:43 EDT Authorization Status: Final Author or Import Date: CINDY Min Lynn on December 05, 2024 16:19 EDT Verified By: CINDY Min Lynn on December 05, 2024 16:19 EDT Encounter info: [id number], [place] [id number], Clinic, 12/05/2024 - 12/05/2024 Allergies Allergy/AdvReac Type Severity Reaction Status Date / Time No Known Allergies Allergy Verified 12/14/24 08:01 Home Medications Medication Instructions Recorded Confirmed Type Marijuana 1 inh inhalation DAILY 11/28/20 12/14/24 History clopidogrel 75 mg tablet (Plavix) 75 mg PO QAM 11/28/20 12/14/24 History lisinopril 2.5 mg tablet 2.5 mg PO QAM 11/28/20 12/14/24 History pantoprazole 20 mg tablet,delayed 20 mg PO QAM 11/28/20 12/14/24 History release atorvastatin 20 mg tablet (Lipitor) 20 mg PO QAM 12/03/22 12/14/24 History aspirin 81 mg tablet,delayed 81 mg PO QAM 12/08/22 12/14/24 History release gabapentin 100 mg capsule 200 mg PO QAM 12/14/24 12/14/24 History wvyxufpijtya-mtgxpjzl-vyahjz tablet 1 tab PO QAM 12/14/24 12/14/24 History Past Med/Surg History Problem List (Updated 12/19/24 @ 08:44 by Mayda Jo PA-C) Peripheral vascular disease Carotid artery stenosis Presence of internal carotid stent Claudication in peripheral vascular disease Hypertension Hyperlipidemia Atherosclerosis of lower extremity with rest pain Medical History (Updated 12/19/24 @ 08:44 by Mayda Jo PA-C) CAD (coronary artery disease) stents x2 2006 (LIZ tp Lcx, POM3) stents x1 2008 (mid OM3) No longer following with cardio senior living (current) use of antithrombotics/antiplatelets Presence of internal carotid stent Claudication in peripheral vascular disease Hypertension Hyperlipidemia Peripheral vascular disease Eye problem right eye vision loss-comes and goes, with migraines History of myocardial infarction (2006) Carotid artery disease Neck CTA (12/03/22): up to 50% proximal CHONG stenosis, 70% stenosis within proximal LICA PAD (peripheral artery disease) Stroke-like symptoms TIA (12/03/22, [facility]), no acute head imaging findings, noted to have significant carotid disease (reason for upcoming surgery) Hx of migraines LBBB (left bundle branch block) Chronic dating back to at least 2015 EKG (scanned into [facility]io), subsequent echo 2020, no longer follows with cardiology Gout Hx GERD (gastroesophageal reflux disease) Controlled Surgical History History of cataract surgery R/L History of vascular surgery lRLE (2015) Left common fem artery endarterectomy (12/05/20): Grade 2 view, MAC#3, ETT [address] [facility] 12/17/22 Lt Transcarotid artery revascularization History of esophagogastroduodenoscopy (EGD) History of colonoscopy History of cardiac cath 2007- stents x2 2009- stent x1 no longer follows with cardiology Family History Father Family history of diabetes mellitus Uncle Family hx of colon cancer Social History Smoking Status: Former smoker Tobacco Type: Cigarettes Smoking End Date: 2015; Second Hand Exposure: No; Do You Dip or Chew Tobacco: No; Tobacco Cessation Education Requested by Patient: No Hx Alcohol Use: Yes Alcohol type: beer, wine and hard liquor Hx Substance Use: Yes Last Used Substance: Days (ago) Last Used Substance Other:: last used was last evening Substance Use Type Other:: medical marijuana- advised Preferred Language: Spanish Communication Ability: Effective Story Reader Required: No Beliefs That Will Affect Care: None Current Living Situation: Family Current Living Situation Comment: lives with son current occupational status: disabled Other Information That Helps Us Care for You: No Feels Safe at Home: Yes Safety Concerns: Feels Safe At This Time Assistive Devices: Denture - Upper
[2024-12-20 09:17] LABS: Hematocrit (blood only) 35.9 % (42.0-52.0); Hemoglobin 10.2 g/dl (14.0-18.0); Immature Granulocytes # (auto) 0.03 K/uL (0.01-0.20); Immature Granulocytes % (auto) 0.4 %; Mean Corpuscular Hemoglobin 19.8 pg (25.0-34.0); Mean Corpuscular Volume 69.8 fL (80.0-100.0); RDW Standard Deviation 49.5 fL (36.4-46.3); Red Blood Count 5.14 M/uL (4.70-6.10); White Blood Count 7.17 K/ul (4.8-10.8)
[2024-12-20] MEDS: SODIUM CHLORIDE 0.9% 1,000 ML IV SCH ×2 (09:18→16:33)
[2024-12-20 09:34] LABS: Alanine Aminotransferase 31.0 U/L (7-52); Albumin Globulin Ratio 1.3 (0.9-2); Alkaline Phosphatase 96.0 U/L (34-104); Anion Gap 9.0 (3-11); Bilirubin,Total 0.6 mg/dl (0.2-1.0); Blood Urea Nitrogen 21.0 mg/dl (6-23); Calcium 9.4 mg/dl (8.6-10.3); Carbon Dioxide 23.0 mmol/L (21-32); Chloride 102.0 mmol/L (98-107); Creatinine Clr Calc Pharmacy 60.5 ml/min; Globulin 3.6 gm/dl (2.5-4.0); Glucose 105.0 mg/dl (70-99(Fasting)); Potassium 4.5 mmol/L (3.5-5.1); Sodium 134.0 mmol/L (136-145); Total Protein 8.2 gm/dl (6.0-8.3)
[2024-12-20] MEDS ORDERED: PROPOFOL IV EMULSION 10 MG/ML 20 ML VIAL IV ONE (09:39)
[2024-12-20] MEDS ORDERED: ONDANSETRON INJ 2 MG/ML 2 ML VIAL ONE (09:39)
[2024-12-20] MEDS ORDERED: ROCURONIUM BROMIDE 10 MG/ML 5 ML VIAL IV ONE ×2 (09:39→11:36)
[2024-12-20] MEDS ORDERED: DEXAMETHASONE SOD INJ 4 MG/ML VIAL ONE (09:39)
[2024-12-20] MEDS ORDERED: SUGAMMADEX SODIUM 200 MG/2 ML VIAL IV ONE (09:40)
[2024-12-20 09:41] LABS: Anisocytosis Present; Microcytosis Present; Ovalocytes 2+; Platelet Count 232 K/uL (130-400)
[2024-12-20] MEDS: ASPIRIN 81 MG CHEW PO STA (09:42)
[2024-12-20] MEDS ORDERED: HEPARIN SOD (PORCINE) 1000 UNIT/ML ONE (09:47)
[2024-12-20 09:52] LABS: INR 1.1 (0.9-1.1); Partial Thromboplastin Time 28 Seconds (21-31); Prothrombin Time 12.0 Seconds (9.0-12.0)
[2024-12-20] MEDS ORDERED: GLYCOPYRROLATE 0.2 MG/ML VIAL ONE (09:53)
--- NOTE | 2024-12-20 10:01 | Electrocardiogram Report ---
Test Reason : Blood Pressure : */* mmHG Vent. Rate : 87 BPM Atrial Rate : 87 BPM P-R Int : 182 ms QRS Dur : 136 ms QT Int : 394 ms P-R-T Axes : 48 -16 97 degrees QTcB Int : 474 ms Normal sinus rhythm Possible Left atrial enlargement Left bundle branch block Abnormal ECG When compared with ECG of 03-Dec-2022 16:54, No significant change Confirmed by Mathew Nelson ([id number]) on 12/20/2024 10:00:53 AM Referred By: Efren Castrejon Confirmed By: Mathew Nelson
--- NOTE | 2024-12-20 10:09 | History & Physical Bridge Note ---
Date of Service December 20, 2024 History & Physical Bridge Note I have examined the patient, reviewed the History & Physical and in the interval since the performance of the History & Physical I have noted the following changes of clinical significance: no changes noted
[2024-12-20] MEDS ORDERED: ONDANSETRON INJ 2 MG/ML 2 ML VIAL IV PRN (10:16)
[2024-12-20] MEDS ORDERED: NALOXONE HCL 0.4 MG/1 ML VIAL/CARP IV PRN (10:16)
[2024-12-20] MEDS ORDERED: PROMETHAZINE HCL 6.25 MG in SODIUM CHLORIDE 0.9% 50 ML IV PRN (10:16)
[2024-12-20] MEDS ORDERED: ATROPINE SULFATE 0.1 MG/ML 10ML SYR IV PRN (10:16)
[2024-12-20] MEDS ORDERED: FLUMAZENIL 0.1 MG/1 ML 10 ML VIAL IV PRN (10:16)
--- NOTE | 2024-12-20 10:32 | XRay Report ---
XR chest 2V PA/lateral CLINICAL HISTORY: preop COMPARISON STUDY: 12/03/2022 FINDINGS: Heart size and pulmonary vasculature are normal. No consolidation or pleural effusion. IMPRESSION: No acute findings. ACT 112: Negative or not required by law. Electronically signed by: Christopher Tobias M.D. 12/20/2024 10:30 AM
[2024-12-20] MEDS ORDERED: ESMOLOL HCL INJ 10 MG/ML 10ML VIAL IV ONE (11:48)
[2024-12-20] MEDS ORDERED: PHENYLEPHRINE 100MCG/ML 5ML SYR ONE (11:57)
[2024-12-20] MEDS ORDERED: PHENYLEPHRINE HCL 25 MG/250 ML NSS IV ONE (11:57)
[2024-12-20] MEDS: GELATIN SPONGE SZ 100 ONE (12:09)
[2024-12-20] MEDS: THROMBIN FOR SOLN 20000 UNIT KIT ONE (12:09)
[2024-12-20] MEDS ORDERED: NEOSTIGMINE METHYLSULFATE 1 MG/ML 10ML VIAL ONE (12:10)
[2024-12-20] MEDS: SURGICEL ABSORB HEMOSTAT 2IN X 14IN TOP ONE (12:13)
[2024-12-20] MEDS ORDERED: PROTAMINE SULFATE 10 MG/ML 5 ML VIAL IV ONE (12:36)
[2024-12-20] MEDS: VISIPAQUE IV ONE (12:39)
[2024-12-20] MEDS: BUPIVACAINE/EPINEPHRINE 0.5% MPF 1:200,000 30 ML VIAL ONE (12:39)
--- NOTE | 2024-12-20 12:39 | Post Operative Brief Note ---
Immediate Post Op Note Date of Surgery December 20, 2024 Pre & Post Diagnosis Operation Date: 12/20/24 10:20 Pre-Op Diagnosis: Right Internal Carotid Artery Stenosis Post-Op Diagnosis: Right Internal Carotid Artery Stenosis I identified the patient and participated in the time-out.: Yes Procedure Operation Date: 12/20/24 10:20 Actual Procedures p Right Transcarotid Artery Revascularization, Ultrasound Localization Left Common Femoral Vein(Right) - Efren Castrejon MD Surgeon Efren Castrejon MD Block Greaser MD Aureliano HellerMinarchtrip,PAC Estimated Blood Loss 10 Findings Consistent with Post-Op Diagnosis Anesthesia Type General Complications none Disposition Accompanied Patient To Recovery: No Disposition: Recovery Room
[2024-12-20] MEDS ORDERED: VASOPRESSIN 20 UNIT/ML VIAL ONE (13:04)
[2024-12-20] MEDS: ceFAZolin 330 MG/ML 1 GM VIAL ONE (13:08)
--- NOTE | 2024-12-20 13:23 | Operative Report ---
Post Operative Report Pre & Post Diagnosis Operation Date: 12/20/24 10:20 Pre-Op Diagnosis: Right Internal Carotid Artery Stenosis Post-Op Diagnosis: Right Internal Carotid Artery Stenosis I identified the patient and participated in the time-out.: Yes Procedure Operation Date: 12/20/24 10:20 Actual Procedures p Right Transcarotid Artery Revascularization, Ultrasound Localization Left Common Femoral Vein(Right) - Efren Castrejon MD Surgeon Efren Castrejon MD Hand Packager MD Aureliano HellerMinarchtrip,PAC Estimated Blood Loss 10 Findings Consistent with Post-Op Diagnosis No obvious residual stenosis following stent deployment. CCA and ICA patent on comletion angio. Fluids Per anesthesia report Specimens No specimen Drains No drain. Anesthesia Type General Complications None apparent at conclusion of the case. Indications Symptomatic in stent restenosis. Description of Procedure The patient was brought to the operating room, where lines were placed and general anesthesia was accomplished by anesthesia team. A shoulder roll was placed and the neck was rotated towards the left side of the patient. The right neck and bilateral groins were prepped and patient was draped in the usual sterile fashion. A timeout was performed identifying the correct patient by name, procedure, and location of procedure and all were in agreement. A 4cm transverse incision was made between the sternal and clavicular heads of the sternocleidomastoid muscle. The muscle heads were retracted to each side and the carotid sheath was identified. Using blunt dissection, the carotid sheath was opened and 3cm of common carotid artery (CCA) were isolated. Umbilical tape was placed around the proximal CCA under direct visualization. A 5-0 prolene U- stitch was pre-placed in the anterior wall of the CCA to facilitate hemostasis after removal of the arterial sheath at completion of the procedure. The patient was given 6000 units of IV heparin. The contralateral (left) common femoral vein was accessed under ultrasound guidance, using a micropuncture needle and a wire and sheath were placed using modified Seldinger technique. The venous return sheath was advanced into the common femoral vein over the 0.035" wire. Blood was aspirated from the flow line and the sheath was flushed with heparinized saline.The sheath was secured to the patient's skin with a 2-0 silk stitch to maintain position in the vessel. ACT was confirmed to be above 250 seconds prior to arterial access. A 4-[place] non- stiffened micropuncture set was used, puncturing the artery with a 21G needle through the pre-placed U-stitch while holding gentle traction on the umbilical tape to stabilize the CCA within the incision. The micropuncture wire was advanced 3-4cm into the CCA and the 21G needle removed. The micropuncture sheath was advanced 3cm into the CCA and the wire and dilator were removed. A cerebral angiogram was obtained after ensuring there were no air bubbles in the system. The J-tipped guidewire was inserted and after micropuncture sheath removal, the transcarotid arterial sheath was advanced to the 3rd marker and the 0.035" wire and dilator were removed. Arterial sheath position was assessed under fluoroscopy. The arterial sheath was sutured to the patient at two sites. The Flow Controller was connected to the transcarotid arterial sheath, prepared by passively allowing arterial blood to backfill the line and then it was connected to the venous return sheath. The CCA was clamped proximally with a Rum isidro tourniquet to ensure active flow reversal. Heparinized saline was delivered into the venous flow line to confirm adequate flow reversal. A TCAR timeout was performed, heart rate was >70bpm and systolic BP was >140mmHg. Patient had been pretreated with glycopyrrolate and atropine was available. The lesion was crossed with an 0.014" guidewire and pre-dilation balloon angioplasty was performed with a 5x35mm [employer] rapid exchange balloon to 14 atmospheres for about 10seconds. A 9x40mm ENROUTE transcarotid stent was placed, sized to the right CCA and placed just distal to the distal extent of the previous stent. A second 9x40 stent was placed to completely re-line the previous stents. A completion angiogram was performed showing appropriate stent position with good wall apposition. Post-dilation balloon angioplasty was performed with a 5.5x35 balloon distally and 6x25 balloon proximally. At TCAR case completion, antegrade flow was restored by releasing the tourniquet on the CCA and closing the stopcocks to the flow lines. The total clamp time was 16 minutes. The transcarotid arterial sheath was removed and the pre-placed suture was tied. 25 of protamine were given. A repeat ACT was obtained and was 132. The venous return sheath was removed and hemostasis achieved with manual compression. The neck incision was irrigated with antibiotic solution and was hemostatic before closure. 10cc of 0.25% marcaine with epinephrine were used for local anesthesia around skin edges. The platysma was approximated with 3-0 Vicryl running suture and the skin was closed with 4-0 running Vicryl suture and covered with Dermabond. The patient tolerated the procedure well and was extubated in the operating room. He was moving all four extremities to command prior to transfer to the recovery room. All counts were correct at the end of the procedure. Fluoroscopy time was 4.8minutes, radiation dose was 36.6mGy and 9cc of contrast were used. Dr. Castrejon was present and participated in all critical parts of the procedure. I attest to the content of the Intraoperative Record and any orders documented therein. Any exceptions are noted below.
--- NOTE | 2024-12-20 14:31 | Anesthesiology Progress Note ---
Date of Service December 20, 2024 Anesthesia Post Procedure Vital Signs Vital Signs: Temp Pulse Pulse Resp BP BP Pulse Ox 12/20/24 14:20 36.7 C 74 14 158/76 H 154/85 H 97 12/20/24 14:10 76 12 155/75 H 150/87 H 100 12/20/24 14:00 74 16 151/73 H 150/91 H 100 12/20/24 13:50 36.0 C L 74 14 146/72 H 143/85 H 100 12/20/24 13:40 76 20 148/76 H 148/92 H 100 12/20/24 13:30 36.0 C L 81 14 153/96 H 100 12/20/24 09:08 36.7 C 91 H 20 167/88 H 171/97 H 99 O2 Del Method O2 Flow Rate 12/20/24 14:20 Room Air 12/20/24 14:10 Oxymask 2 12/20/24 14:00 Oxymask 2 12/20/24 13:50 Oxymask 4 12/20/24 13:40 Oxymask 4 12/20/24 13:30 Oxymask 6 12/20/24 09:08 Room Air Transfer of Care Handoff Completed per policy Notes Mental Status: alert / awake / arousable Patient Amnestic to Procedure: Yes Nausea / Vomiting: adequately controlled Pain: adequately controlled Airway Patency, RR, SpO2: stable & adequate BP & HR: stable & adequate Hydration State: stable & adequate Anesthetic Complications: no major complications apparent
[2024-12-20] MEDS ORDERED: STAT IV Infusion **Titration per Protocol STA (15:50)
--- NOTE | 2024-12-20 16:21 | Critical Care Consultation ---
Date of Consultation December 20, 2024 Assessment & Plan (1) Carotid artery stenosis: (2) Acute chest pain: (3) Hypertension: (4) CAD (coronary artery disease): Plan 64-year-old male with a past medical history of coronary artery disease, hypertension, peripheral vascular disease and coronary artery stenosis who presents for elective right TCAR Neurologic: Pain control per vascular surgery. Monitor neurostatus closely with frequent neurovascular checks. Pulmonary: Low-flow oxygen as needed. Patient complaining of chest pain. Mild increased interstitial prominence bilaterally with nonspecific hazy opacity over the right upper lobe likely related to postsurgical changes. Will need a repeat chest x- ray as an outpatient. He would also be eligible for lung cancer screening with low-dose chest CT as an outpatient. Cardiovascular: Patient complaining of substernal chest pain. EKG x 2 unchanged from prior EKG with normal sinus rhythm and a left bundle branch block which is old. Will check troponin. Nitropaste given. Chest pain improved status post Nitropaste. Check CBC now. Gastrointestinal: Protonix. Give Pepcid now. Renal: Monitor urine output closely. Check CMP now. Infectious disease: No obvious infectious etiology at present. Hematologic: CBC pending. Endocrine: Maintain euglycemia. Lines and tubes: Continue peripheral IVs and Humphries catheter. VTE prophylaxis: Per vascular surgery CODE STATUS: Full Family at bedside: Not available at bedside Disposition: ICU I have personally spent 60 minutes of critical care time in the direct management of this patient. This is a life/limb threatening event. This includes time spent evaluating patient, direct bedside care, chart review, placing orders, interpretation of diagnostic studies, discussion with consultants, patient, and family members, as well as other required patient management activities. This time is exclusive of all separately billable procedures, and teaching time and separate from and in addition to any other critical care service time. Thank you for allowing us to participate in the care of this patient. I personally spent 60 minutes on the date of service in activities related to this patient's encounter, including 40 minutes of counseling with patient ayaan juliaing treatment plan and 20 minutes of clinical review of lab results and documentation. I did service counselor the patient regarding their diagnosis and treatment plan and they expressed understanding. This note was dictated using voice recognition software and may include grammatical errors, extra words, word substitutions and other inaccuracies due to errors in the voice recognition software and differences in speech patterns. History of Present Illness Reason for Consultation: Postop Day 0 status post right TCAR Attending Physician: Efren Castrejon MD History of Present Illness 64-year-old male with a past medical history of coronary artery disease status post stenting, peripheral vascular disease, hypertension, hyperlipidemia and GERD who presented to the hospital for elective right TCAR. Patient had an uneventful procedure, but postop complaints of 7 out of 10 substernal chest pressure. It is nonradiating. He notes it is similar to his prior Myocardial infarctions. He notes that about 1 week ago he had an episode of chest pain that went away spontaneously. He denies any shortness of breath. He is not diaphoretic presently. He is hypertensive with systolics in the 190s. Allergies Allergy/AdvReac Type Severity Reaction Status Date / Time No Known Allergies Allergy Verified 12/20/24 09:02 Home Medications Medication Instructions Recorded Confirmed Type Marijuana 1 inh inhalation DAILY 11/28/20 12/20/24 History clopidogrel 75 mg tablet (Plavix) 75 mg PO QAM 11/28/20 12/20/24 History lisinopril 2.5 mg tablet 2.5 mg PO QAM 11/28/20 12/20/24 History pantoprazole 20 mg tablet,delayed 20 mg PO QAM 11/28/20 12/20/24 History release atorvastatin 20 mg tablet (Lipitor) 20 mg PO QAM 12/03/22 12/20/24 History aspirin 81 mg tablet,delayed 81 mg PO QAM 12/08/22 12/20/24 History release gabapentin 100 mg capsule 200 mg PO QAM 12/14/24 12/20/24 History jegtbmhzoscy-lnpvkhdz-qqjkpm tablet 1 tab PO QAM 12/14/24 12/20/24 History Patient History Medical History (Updated 12/20/24 @ 16:22 by Sourav Hinojosa MD) CAD (coronary artery disease) stents x2 2006 (LIZ tp Lcx, POM3) stents x1 2008 (mid OM3) No longer following with cardio [facility] (current) use of antithrombotics/antiplatelets Presence of internal carotid stent Claudication in peripheral vascular disease Hypertension Hyperlipidemia Peripheral vascular disease Eye problem right eye vision loss-comes and goes, with migraines History of myocardial infarction (2006) Carotid artery disease Neck CTA (12/03/22): up to 50% proximal CHONG stenosis, 70% stenosis within proximal LICA PAD (peripheral artery disease) Stroke-like symptoms TIA (12/03/22, [facility] ER), no acute head imaging findings, noted to have significant carotid disease (reason for upcoming surgery) Hx of migraines LBBB (left bundle branch block) Chronic dating back to at least 2015 EKG (scanned into old [employer]), subsequent echo 2020, no longer follows with cardiology Gout Hx GERD (gastroesophageal reflux disease) Controlled Surgical History History of cataract surgery R/L History of vascular surgery lRLE (2015) Left common fem artery endarterectomy (12/05/20): Grade 2 view, MAC#3, ETT 7.5 at [facility] 12/17/22 Lt Transcarotid artery revascularization History of esophagogastroduodenoscopy (EGD) History of colonoscopy History of cardiac cath 2006- stents x2 2009- stent x1 no longer follows with cardiology Family History Father Family history of diabetes mellitus Uncle Family hx of colon cancer Social History Smoking Status: Former smoker Tobacco Type: Cigarettes Smoking End Date: 2015; Second Hand Exposure: No; Do You Dip or Chew Tobacco: No; Tobacco Cessation Education Requested by Patient: No Hx Alcohol Use: Yes Alcohol type: beer, wine and hard liquor Hx Substance Use: Yes Last Used Substance: Days (ago) Last Used Substance Other:: last used was last evening Substance Use Type Other:: medical marijuana- advised Preferred Language: Syriac Communication Ability: [employer] Required: No Beliefs That Will Affect Care: None Current Living Situation: Family Current Living Situation Comment: lives with son current occupational status: disabled Other Information That Helps Us Care for You: No Feels Safe at Home: Yes Safety Concerns: Feels Safe At This Time Assistive Devices: Denture - Upper Review of Systems Review of Systems: All systems reviewed & are unremarkable except as noted in HPI & below Physical Exam Physical Exam: Constitutional: Patient appears to be of their stated age. He is in mild distress. Eyes: Pupils are equal round and reactive to light. Conjunctivae are normal. Anicteric sclera. Ears nose, mouth and throat: Mallampati class 2. Normal posterior oropharynx. Uvula is midline. Neck: Trachea is midline. Visual inspection is normal. Respiratory: Clear to auscultation bilaterally. No use of accessory muscles. No significant clubbing noted. Cardiovascular: Regular rate and rhythm. No murmurs. No edema. Gastrointestinal: Normal bowel sounds, soft, nontender and nondistended. No hepatosplenomegaly noted. Musculoskeletal: No cyanosis. Patient is able to move all extremities. Strength is 5 out of 5 in the upper and lower extremities. Skin: No rashes, warm dry and intact. Neurologic: No obvious focal neurological deficits seen. Psychiatric: Alert and oriented x3 with a euthymic affect. Results & Data Results & Data Vital Signs (Past 12 Hours) Vital Signs Temp Pulse Pulse Resp BP BP Pulse Ox 12/20/24 15:10 82 16 158/93 H 158/76 H 100 12/20/24 14:55 74 16 148/85 H 154/75 H 100 12/20/24 14:40 75 16 151/85 H 152/74 H 100 12/20/24 14:30 76 16 151/87 H 150/71 H 100 12/20/24 14:20 36.7 C 74 14 158/76 H 154/85 H 97 12/20/24 14:10 76 12 155/75 H 150/87 H 100 12/20/24 14:00 74 16 151/73 H 150/91 H 100 12/20/24 13:50 36.0 C L 74 14 146/72 H 143/85 H 100 12/20/24 13:40 76 20 148/76 H 148/92 H 100 12/20/24 13:30 36.0 C L 81 14 153/96 H 100 12/20/24 09:08 36.7 C 91 H 20 167/88 H 171/97 H 99 O2 Del Method O2 Flow Rate 12/20/24 15:10 Room Air 12/20/24 14:55 Room Air 12/20/24 14:40 Room Air 12/20/24 14:30 Room Air 12/20/24 14:20 Room Air 12/20/24 14:10 Oxymask 2 12/20/24 14:00 Oxymask 2 12/20/24 13:50 Oxymask 4 12/20/24 13:40 Oxymask 4 12/20/24 13:30 Oxymask 6 12/20/24 09:08 Room Air Coding Level of Care Code 71531 CRITICAL CARE 1ST 30-74M Diagnoses Carotid artery stenosis I65.29 Acute chest pain R07.9 Hypertension I10 CAD (coronary artery disease) I25.10
[2024-12-20] MEDS: NITROGLYCERIN 2% OINTMENT 30GM TUBE EXT ONE (16:29)
[2024-12-20] MEDS: NITROGLYCERIN 2% OINTMENT 30GM TUBE EXT SCH (16:31)
[2024-12-20] MEDS: FAMOTIDINE 20MG IV PUSH 20 MG/5 ML SYR IV STA (16:31)
[2024-12-20 16:45] LABS: Hematocrit (blood only) 31.6 % (42.0-52.0); Hemoglobin 9.3 g/dl (14.0-18.0); Immature Granulocytes # (auto) 0.04 K/uL (0.01-0.20); Immature Granulocytes % (auto) 0.6 %; Mean Corpuscular Hemoglobin 20.4 pg (25.0-34.0); Mean Corpuscular Volume 69.1 fL (80.0-100.0); RDW Standard Deviation 48.4 fL (36.4-46.3); Red Blood Count 4.57 M/uL (4.70-6.10); White Blood Count 6.30 K/ul (4.8-10.8)
[2024-12-20] MEDS: ACETAMINOPHEN 325 MG TAB PO PRN (16:50)
--- NOTE | 2024-12-20 17:05 | XRay Report ---
Clinical History: Chest pain Technique: A frontal view of the chest was obtained Comparison is made to the prior examination dated 12/03/2022 Findings: No focal area of consolidation is seen. There is new diffuse interstitial prominence that could be due to mild pulmonary edema. The heart size is within normal limits. No pleural effusion or pneumothorax is seen. There is no definite pulmonary nodule. No fracture is noted. No foreign body is seen Impression: Suspected mild pulmonary edema Electronically signed by Davion Riley 12-20-2024 5:05 PM
[2024-12-20 17:06] LABS: Alanine Aminotransferase 31.0 U/L (7-52); Albumin Globulin Ratio 1.2 (0.9-2); Alkaline Phosphatase 89.0 U/L (34-104); Anion Gap 11.0 (3-11); Bilirubin,Total 0.4 mg/dl (0.2-1.0); Blood Urea Nitrogen 21.0 mg/dl (6-23); Calcium 9.2 mg/dl (8.6-10.3); Carbon Dioxide 21.0 mmol/L (21-32); Chloride 105.0 mmol/L (98-107); Creatinine Clr Calc Pharmacy 64.8 ml/min; Globulin 3.5 gm/dl (2.5-4.0); Glucose 127.0 mg/dl (70-99(Fasting)); Potassium 4.7 mmol/L (3.5-5.1); Sodium 137.0 mmol/L (136-145); Total Protein 7.6 gm/dl (6.0-8.3)
[2024-12-20 17:17] LABS: Microcytosis Present; Ovalocytes 1+; Platelet Count 164 K/uL (130-400)
[2024-12-20] MEDS: PHENYLEPHRINE/NSS 25 MG/250 ML BAG IV PRN (22:11)
[2024-12-21 06:48] VITALS: O2SAT 100
[2024-12-21] MEDS: CEROVITE ADV FORMULA TAB PO SCH (07:56)
[2024-12-21] MEDS: GABAPENTIN 100 MG CAP PO SCH (07:56)
[2024-12-21] MEDS: ASPIRIN 81 MG ECTAB PO SCH (07:56)
[2024-12-21] MEDS: ATORVASTATIN 20 MG TAB PO SCH (07:57)
[2024-12-21] MEDS: CLOPIDOGREL BISULFATE 75 MG TAB PO SCH (07:57)
[2024-12-21] MEDS: ASPIRIN 81 MG CHEW ONE (08:03)
[2024-12-21 10:04] VITALS: TEMP 98.2
--- NOTE | 2024-12-21 11:50 | Critical Care Progress Note ---
Date of Service December 21, 2024 Assessment & Plan (1) Carotid artery stenosis: (2) Acute chest pain: (3) Hypertension: (4) CAD (coronary artery disease): Plan 64-year-old male with a past medical history of coronary artery disease, hypertension, peripheral vascular disease and coronary artery stenosis who presents for elective right TCAR Neurologic: Pain control per vascular surgery. Monitor neurostatus closely with frequent neurovascular checks. Pulmonary: Low-flow oxygen as needed. Patient complaining of chest pain. Mild increased interstitial prominence bilaterally with nonspecific hazy opacity over the right upper lobe likely related to postsurgical changes. Will need a repeat chest x- ray as an outpatient. He would also be eligible for lung cancer screening with low-dose chest CT as an outpatient. Cardiovascular: Patient complaining of substernal chest pain. EKG x 2 unchanged from prior EKG with normal sinus rhythm and a left bundle branch block which is old. Will check troponin. Nitropaste given. Chest pain improved status post Nitropaste. CBC WNL this am. Gastrointestinal: Protonix. Give Pepcid now. Renal: Monitor urine output closely. Check CMP now. Infectious disease: No obvious infectious etiology at present. Hematologic: CBC pending. Endocrine: Maintain euglycemia. Lines and tubes: Continue peripheral IVs and Humphries catheter. VTE prophylaxis: Per vascular surgery CODE STATUS: Full Family at bedside: Not available at bedside Disposition: ICU Thank you for allowing us to participate in the care of this patient. 35 minutes is the time reviewing the chart, obtaining history, performing the physical exam, and updating the patient and bedside nurse. Admission and Anticipated Discharge Date Admission Date: December 20, 2024 Subjective " I feel great and am ready to go home." Patient neuro intact and hemodynamically stable this am. Review of Systems Review of Systems: All systems reviewed & are unremarkable except as noted in HPI & below Physical Exam Physical Exam: VITALS: Reviewed. WEIGHT/BMI reviewed. GEN: Healthy appearing, well-developed, NAD. PSYCH: Good Judgment. AOx3. Normal memory, mood, and affect. HEENT -Head: NC/AT; -Eyes: PERRL, EOMI. No discharge or redn ess; -Ears: External ears are normal. -Nose: Normal nares. NECK: Supple, with no masses. CV: RRR, no m/r/g. LUNGS: CTAB, no w/r/c. ABD: Soft, NT/ND, NBS, no masses or organomegaly. : N/A SKIN: Warm, well perfused. No skin rashes or abnormal lesions. MSK: No deformities, Normal gait. EXT: No clubbing, cyanosis, or edema. NEURO: Ambulating with no limitations. Normal muscle strength and tone. No focal deficits. Results & Data Results & Data Vital Signs (Past 12 Hours) Vital Signs Temp Pulse Resp BP Pulse Ox O2 Del Method 12/21/24 09:00 71 12 100 Room Air 12/21/24 08:09 73 17 12/21/24 08:03 36.8 C 12/21/24 07:03 58 L 15 12/21/24 06:39 67 13 12/21/24 06:06 61 14 12/21/24 05:30 62 16 12/21/24 05:00 67 14 100 12/21/24 05:00 119/69 12/21/24 04:57 75 16 100 12/21/24 04:03 77 10 L 100 12/21/24 04:00 103/60 12/21/24 04:00 124/60 12/21/24 03:54 63 11 L 100 12/21/24 03:30 36.6 C 69 9 L 99 12/21/24 03:00 110/66 12/21/24 03:00 76 11 L 98 12/21/24 02:42 82 12 98 12/21/24 02:03 75 11 L 99 12/21/24 02:00 107/63 12/21/24 02:00 107/63 12/21/24 01:57 76 14 98 12/21/24 01:45 63 13 98 12/21/24 01:00 62 16 100 12/21/24 01:00 111/67 12/21/24 00:30 64 10 L 100 12/21/24 00:18 63 12 100 12/21/24 00:00 118/65 12/20/24 23:59 73 12/20/24 23:54 67 15 99 Critical Care Results & Data Vital Signs (Past 12 Hours) Vital Signs Temp Pulse Resp BP Pulse Ox O2 Del Method 12/21/24 09:00 71 12 100 Room Air 12/21/24 08:09 73 17 12/21/24 08:03 36.8 C 09/10/25 07:03 58 L 15 12/21/24 06:39 67 13 12/21/24 06:06 61 14 12/21/24 05:30 62 16 12/21/24 05:00 67 14 100 12/21/24 05:00 119/69 12/21/24 04:57 75 16 100 12/21/24 04:03 77 10 L 100 12/21/24 04:00 103/60 12/21/24 04:00 124/60 12/21/24 03:54 63 11 L 100 12/21/24 03:30 36.6 C 69 9 L 99 12/21/24 03:00 110/66 12/21/24 03:00 76 11 L 98 12/21/24 02:42 82 12 98 12/21/24 02:03 75 11 L 99 12/21/24 02:00 10712/21/24 02:00 10712/21/24 01:57 76 14 98 12/21/24 01:45 63 13 98 12/21/24 01:00 62 16 100 12/21/24 01:00 111/67 12/21/24 00:30 64 10 L 100 12/21/24 00:18 63 12 100 12/21/24 00:00 118/65 12/20/24 23:59 73 12/20/24 23:54 67 15 99 Lab & Micro Results (Past 24 Hours) RBC 4.57 M/uL (4.70-6.10) L 12/20/24 WBC 6.30 K/ul (4.8-10.8) 12/20/24 Hgb 9.3 g/dl (14.0-18.0) L 12/20/24 Hct 31.6 % (42.0-52.0) L 12/20/24 MCV 69.1 fL (80.0-100.0) L 12/20/24 MCH 20.4 pg (25.0-34.0) L 12/20/24 MCHC 29.4 g/dL (32.0-36.0) L 12/20/24 RDW Standard Deviation 48.4 fL (36.4-46.3) H 12/20/24 RDW Coefficient of Variation 20.0 % (11.5-14.5) H 12/20/24 Plt Count 164 K/uL (130-400) 12/20/24 MPV 9.5 fL (9.4-12.4) 12/20/24 Neutrophils (%) (Auto) 84.8 % 12/20/24 Lymphocytes (%) (Auto) 11.3 % 12/20/24 Monocytes # (Auto) 0.14 K/uL (0.11-0.59) 12/20/24 Eosinophils # (Auto) 0.04 K/uL (0.00-0.50) 12/20/24 Immature Granulocyte % (Auto) 0.6 % 12/20/24 Neutrophils # (Auto) 5.34 K/uL (1.40-6.50) 12/20/24 Lymphocytes # (Auto) 0.71 K/uL (1.20-3.40) L 12/20/24 Monocytes # (Auto) 0.14 K/uL (0.11-0.59) 12/20/24 Eosinophils # (Auto) 0.04 K/uL (0.00-0.50) 12/20/24 Basophils # (Auto) 0.03 K/uL (0.00-0.20) 12/20/24 Immature Granulocyte # (Auto) 0.04 K/uL (0.01-0.20) 5 Microcytosis Present 12/20/24 Ovalocytes 1+ 12/20/24 Na 137 mmol/L (136-145) 12/20/24 K 4.7 mmol/L (3.5-5.1) 12/20/24 Cl 105 mmol/L (98-107) 12/20/24 CO2 21 mmol/L (21-32) 12/20/24 Anion Gap 11 (3-11) 12/20/24 BUN 21 mg/dl (6-23) 12/20/24 Creatinine 1.13 mg/dl (0.6-1.4) 12/20/24 BUN/Creatinine Ratio 18.6 (10-20) 12/20/24 Glu 127 mg/dl (70-99(Fasting)) H 12/20/24 Ca 9.2 mg/dl (8.6-10.3) 12/20/24 Total Bilirubin 0.4 mg/dl (0.2-1.0) 12/20/24 AST 42 U/L (13-39) H 12/20/24 ALT 31 U/L (7-52) 12/20/24 Alkaline Phosphatase 89 U/L (34-104) 12/20/24 TP 7.6 gm/dl (6.0-8.3) 12/20/24 Albumin 4.1 gm/dl (3.4-5.0) 12/20/24 Globulin 3.5 gm/dl (2.5-4.0) 12/20/24 Albumin/Globulin Ratio 1.2 (0.9-2) 12/20/24 Calcium Level 9.2 mg/dl (8.6-10.3) 12/20/24 16:26 Diagnostic Findings (Past 24 Hours) Chest X-Ray 12/20/24 16:13 Clinical History: Chest pain Technique: A frontal view of the chest was obtained Comparison is made to the prior examination dated 12/03/2022 Findings: No focal area of consolidation is seen. There is new diffuse interstitial prominence that could be due to mild pulmonary edema. The heart size is within normal limits. No pleural effusion or pneumothorax is seen. There is no definite pulmonary nodule. No fracture is noted. No foreign body is seen Impression: Suspected mild pulmonary edema Electronically signed by Davion Riley 12-20-2024 5:05 PM I & O Totals 24 Hours 12/20/24 12/21/24 12/22/24 06:59 06:59 06:59 Intake Total 2214.718 / 2214.718 Output Total 810 / 810 Balance 1404.718 / 1404.718 Cumulative 12/06/24 10:11 thru 12/21/24 06:30 Intake Total 2214.718 Output Total 810 Balance 1404.718 RT Ventilator Mngmt (Last Documented) Ventilator Ordered Settings Respiratory Rate 12 12/21/24 09:00 Ventilator - PT Measurements Respiratory Rate 12 Coding Level of Care Code 11685 SUB INP/OBS CARE 2/35MIN Diagnoses Carotid artery stenosis I65.29 Acute chest pain R07.9 Hypertension I10 CAD (coronary artery disease) I25.10
--- NOTE | 2024-12-21 12:11 | Electrocardiogram Report ---
Test Reason : Blood Pressure : */* mmHG Vent. Rate : 85 BPM Atrial Rate : 85 BPM P-R Int : 168 ms QRS Dur : 138 ms QT Int : 394 ms P-R-T Axes : 52 1 116 degrees QTcB Int : 468 ms Normal sinus rhythm Left bundle branch block Abnormal ECG When compared with ECG of 20-Dec-2024 09:10, No significant change was found Confirmed by Mathew Nelson ([id number]) on 12/21/2024 12:10:52 PM Referred By: Efren Castrejon Confirmed By: Mathew Nelson
[2024-12-21 13:42] VITALS: RESP 18
--- NOTE | 2024-12-21 14:57 | Surgery Progress Note ---
Date of Service December 21, 2024 Assessment & Plan (1) Carotid artery stenosis: Plan: POD #1 after redo R TCAR, doing well post op. Exertional chest pain has been ongoing as outpt. enzymes negative and EKG neg for ischemia. Advised pt to discuss with his PCP or to reestablish with cardiology for outpt workup. Pt states will call for an appt. Discussed with Dr Castrejon, pt ok for d/c home. Admission and Anticipated Discharge Date Admission Date: December 20, 2024 Subjective 64 yo m POD #1 after R TCAR redo, seen in f/u today. Pt states overall feeling well. States chest pain resolved presently. Has been having chest pain at home with activity for weeks now, but felt it was not relevant since it always went away afer taking nitro. No other new complaints. Review of Systems Review of Systems: All systems reviewed & are unremarkable except as noted in HPI & below Physical Exam Constitutional: WD/WN, vitals as above cooperative and comfortable; not in distress Neck: trachea midline R supraclavicular incision C/D/I, moderate edema, ecchymosis, tenderness. Respiratory: normal respiratory effort, lungs clear to auscultation Auscultation: + diminished lung sounds Cardiovascular: Rate/Rhythm: regular rate and regular rhythm Vessels: femoral pulses present, dorsalis pedis pulses present and radial pulses present; + abnormal peripheral pulses Extremities: normal capillary refill Gastrointestinal (Abdomen): Inspection/Auscultation: abdomen normal to inspection and normal bowel sounds Percussion/Palpation: abdomen soft; abdomen nontender Musculoskeletal: no cyanosis or clubbing, extremities motor strength 5/5 Skin: no rashes, warm and dry Neurologic: moves all extremities and awake; no focal motor deficits and not confused Psychiatric: A+Ox3, euthymic affect Results & Data Vital Signs (Past 12 Hours) Vital Signs Temp Pulse Resp BP Pulse Ox O2 Del Method 12/21/24 13:06 66 18 12/21/24 12:03 61 12 12/21/24 11:18 63 14 12/21/24 10:00 63 13 12/21/24 09:46 123/69 12/21/24 09:45 63 16 100 Room Air 12/21/24 09:00 71 12 100 Room Air 12/21/24 08:09 73 17 12/21/24 08:03 36.8 C 12/21/24 07:03 58 L 15 12/21/24 06:39 67 13 12/21/24 06:06 61 14 12/21/24 05:30 62 16 12/21/24 05:00 67 14 100 12/21/24 05:00 119/69 12/21/24 04:57 75 16 100 12/21/24 04:03 77 10 L 100 12/21/24 04:00 103/60 12/21/24 04:00 124/60 12/21/24 03:54 63 11 L 100 12/21/24 03:30 36.6 C 69 9 L 99 12/21/24 03:00 110/66 12/21/24 03:00 76 11 L 98
--- NOTE | 2024-12-21 14:58 | Discharge Summary ---
Date of Service December 21, 2024 Admission HPI Per Admitting Provider Name: MARIANA KAHN Patient Number: [id number] : 1960 Date of Service: 12/05/2024 Chief Complaint: _Follow-up after CTA HPI: _Mr. Kahn is a middle-age male presents to Dr. Acosta's vascular surgery clinic today for an appointment after undergoing a CTA neck due to new amaurosis symptoms in the right eye. Patient states that about a month ago he began having right eye symptoms of transient vision loss, the last event occurring about 3 weeks ago. These are similar to the symptoms that he was experiencing prior to undergoing his bilateral TCAR procedures in 2022. Patient denies any other cerebrovascular symptoms presently, including facial droop, difficulty speaking or swallowing, unilateral extremity weakness numbness or tingling, sudden onset confusion. CTA of the neck performed at [facility] on 12/02/2024 demonstrates severe in-stent restenosis at the distal end of his ICA stents. Current Home Meds: (Last Updated 12/05 14:04) SUMAtriptan (SUMAtriptan 50 mg oral tablet) 50 mg PO ONCE PRN: as needed for migraine headache aspirin (aspirin 81 mg oral delayed release tablet) 81 mg PO Daily atorvastatin (atorvastatin 40 mg oral tablet) 40 mg PO qhs cholecalciferol (cholecalciferol 25 mcg (1000 intl units) oral capsule) 25 mcg PO Daily clopidogrel (Plavix 75 mg oral tablet) 75 mg PO Daily fenofibrate (TriCor 145 mg oral tablet) 145 mg PO Daily gabapentin (gabapentin 100 mg oral capsule) 200 mg PO Daily lisinopril (lisinopril 2.5 mg oral tablet) 2.5 mg PO Daily pantoprazole (pantoprazole 40 mg oral delayed release tablet) 40 mg PO Daily Allergies and Sensitivities: No Known Medication Allergies Past Medical History: Problems: (atherosclerosis) Bilateral carotid artery stenosis (atherosclerosis) Internal carotid artery stent present Peripheral arterial disease Peripheral cyanosis Paresthesia of foot CREST syndrome Scleroderma Telangiectasia Sclerodactyly Current tear of lateral cartilage or meniscus of knee Gout Hypertension Hyperlipidemia GERD (gastroesophageal reflux disease) CAD (coronary artery disease) OBJECTIVE Vitals: Last Updated 12/05/24 14:06 Date Temp BP Location Pulse RR SpO2 Pain 12/05/24 128/68 Right Arm 90 18 97 0 08/02/24 0 08/02/24 132/76 Right Arm 93 96 Vital Signs are the last 3 documented. No Orthostatic Data Available Height and Weight: Last Updated 12/05/24 14:06 Date BMI Wt(kg) Wt(lb) Method Ht(cm) (ft-in) Method 12/05/24 71.8 158 Standing Scale 08/02/24 73.8 162 Standing Scale 12/08/22 71.4 157 Standing Scale Heights and Weights are the last 3 documented. Physical Exam Constitutional: In general patient is a healthy-appearing well-nourished well- developed millage male no distress. Alert and oriented with no focal deficits. His bilateral carotids demonstrate faint bruits. His heart is regular, lungs are decreased but clear. Radial pulses are +3. Lower extremities the pulses are +1. He has brisk capillary refill and no sign of distal ischemia. ASSESSMENT: _ PLAN: _ 1 ) _bilateral ICA stenosis, restenosis of carotid stents Patient does have new onset of symptoms concerning for right eye amaurosis. He does have severe in-stent restenosis noted on the CTA neck. Patient was discussed with Dr. Acosta, who recommends that patient undergo a redo carotid TCAR in the next 1 to 2 weeks. The procedure risks benefits and alternatives were discussed with the patient by myself at Dr. Acosta's request. Patient present understanding and agreement to proceed. He will call with any other questions. Thank you for letting us participate in the care of this patient. I have personally spent_39__ minutes performing [id number] and pdc-oewn-wj-face activities on this date of service.Time does not include separately reported services. Activities Include: _x_ review of the medical record _x_ obtaining a history _x_ physical exam/evaluation __ review labs _x_ review radiology reports _x_ counseling/educating patient/family/caregiver __ discussion/referral to other healthcare professional _x_ documenting care in the medical record __ independent interpretation of results _x_ communication of results to patient/family/caregiver _x_ coordination of care Signature Line Electronic Signature on File CC: [facility], [address] [place] [address] * Electronically Reviewed/Signed by: Ashly Minarchick, PA-C Author Signature Dt/Tm:12/05/2024 04:19 PM [facility] [place] [address], [address] [place] [address] LM Result Type: HVI Outpt Note Date of Service: December 05, 2024 15:43 EDT Authorization Status: Final Author or Import Date: CINDY Min Lynn on December 05, 2024 16:19 EDT Verified By: CINDY Min Lynn on December 05, 2024 16:19 EDT Encounter info: [id number], [facility], Clinic, 12/05/2024 - 12/05/2024 Admission Exam Per Admitting Provider Constitutional: In general patient is a healthy-appearing well-nourished well- developed millage male no distress. Alert and oriented with no focal deficits. His bilateral carotids demonstrate faint bruits. His heart is regular, lungs are decreased but clear. Radial pulses are +3. Lower extremities the pulses are +1. He has brisk capillary refill and no sign of distal ischemia. Principal Diagnosis 1. s/p Redo R TCAR 2. R ICA restenosis Discharge Exam Constitutional WD/WN, vitals as above cooperative and comfortable; not in distress Neck trachea midline Respiratory normal respiratory effort, lungs clear to auscultation Auscultation: + diminished lung sounds Cardiovascular Rate/Rhythm: regular rate and regular rhythm Vessels: femoral pulses present, dorsalis pedis pulses present and radial pulses present; + abnormal peripheral pulses Extremities: normal capillary refill Gastrointestinal (Abdomen) Inspection/Auscultation: abdomen normal to inspection and normal bowel sounds Percussion/Palpation: abdomen soft; abdomen nontender Musculoskeletal no cyanosis or clubbing, extremities motor strength 5/5 Skin no rashes, warm and dry Neurologic moves all extremities and awake; no focal motor deficits and not confused Psychiatric A+Ox3, euthymic affect Discharge Data Allergies Allergy/AdvReac Type Severity Reaction Status Date / Time No Known Allergies Allergy Verified 12/20/24 09:02 Consultations 12/20/24 15:50 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 Exertional chest pain has been ongoing as outpt. enzymes negative and EKG neg for ischemia. Advised pt to discuss with his PCP or to reestablish with cardiology for outpt workup. Pt states will call for an appt. Discussed with Dr Acosta, pt ok for d/c home. Total Time Total Time Spent Total Time Spent (In Minutes): 0 Discharge Plan Discharge Items Patient Disposition: Home - Self-Care Reason For Visit: Right Internal Carotid Artery Stenosis Discharge Diagnosis: 1. s/p R TCAR redo 2. R ICA restenosis Activity: Per Instructions section Lifting: Gradually increase as tolerated Non-emergency contact: Primary Care Provider and Surgeon Call non-emergency contact if: you have any medication questions, your symptoms worsen, your pain is not controlled, your pain is concerning for you, you have a fever, your wound has increased redness and your wound has increased drainage Follow-up/Referrals: Mckay Marin [Primary Care Provider] - (Follow up with PCP within 2 weeks) Efren Acosta MD [Physician] - (Follow up with Dr Acosta or Ashly Min PA-C, in 2 week) Diet: Regular and Heart Healthy Addtl Attending Provider Instructions: SPECIAL CARE INSTRUCTIONS: Diet: * You may return to previous diet. Medications: * Continue to take Aspirin, plavix, and statin medications as directed. DO NOT STOP THESE MEDICATIONS WITHOUT SPEAKING TO DR ACOSTA'S OFFICE. Incision Care: * You may shower, but do not rub incision. You may let the warm soapy water run over it. Be sure to dry the incision well after bathing. * Do not shave directly over the incision until it is healed. * DO NOT IMMERSE THE INCISION IN A TUB/POOL/etc. UNTIL HEALED. Restrictions: * Do not drive for at least one week or if you are still taking any narcotic pain medication. * Do not lift anything heavier than a gallon of milk for one week after going home. Possible Complications: * Numbness - It is normal to have some numbness around the incision. Numbness can extend beyond the incision to areas of the neck, ear and face. The numbness is due to bruising of nerves during the surgery and will gradually improve over a period of months. * Hoarseness/Difficulty Speaking and Swallowing - The bruising of nerves in the neck can also cause a hoarse voice, difficulty speaking or swallowing. This may improve over time, HOWEVER, if it continues for more than a few days please contact our office ([phone]). * Excessive Swelling - There will be some swelling immediately after surgery which usually resolves within one week. If you notice that the swelling is getting worse, notify your surgeon ([phone]). * Drainage/Bleeding - If there is any drainage or bleeding, it should be a very small amount (less than a teaspoon per day). If you have excessive bleeding or drainage from the incision, call your surgeon ([phone]) right away. ACTIVATION OF EMERGENCY MEDICAL SYSTEM: Call 911, immediately, if you experience any of the following: Warning Signs and Symptoms of Stroke: * Sudden numbness or weakness of the face, arm or leg, especially on one side of the body * Sudden confusion, trouble speaking or understanding * Sudden trouble seeing in one or both eyes * Sudden trouble walking, dizziness, loss of balance or coordination * Sudden severe headache with no cause Do not delay calling 911 if you experience any warning signs or symptoms of a stroke. Delay in seeking medical attention may affect what treatments can be given to you. Risk Factors for Stroke: You can reduce your chances of stroke by working with your medical provider to adopt a healthy lifestyle. Some specific ways to lower your chance of stroke are: * If you are a smoker, now is the time to stop smoking cigarettes * If you are diabetic, improve the control of your blood sugars * Avoid excessive amounts of alcohol * Control high blood pressure * Lose weight if you are overweight * Be sure to lead an active lifestyle * Eat a healthy diet low in salt, cholesterol and fat You should know about other risk factors for stroke that you are unable to control. These include: * Age 55 years or older * Male gender * Certain racial groups: , or / * Family History of Stroke, Mini stroke or Heart Attack * Sickle Cell Disease You will be receiving a call from the Vascular Surgery Nurse after you are discharged. FOLLOW UP VISIT: It is important for you to keep your follow up appointments with your medical provider. Keep any scheduled doctor appointments. Pending Studies at Discharge: No Stand-Alone Forms: [facility], Smoking Cessation Medications and DC Order Prescriptions: Continued aspirin 81 mg tablet,delayed release (DR/EC) 81 mg PO QAM clopidogrel [Plavix] 75 mg Tablet 75 mg PO QAM pantoprazole 20 mg Tablet,Delayed Release (Dr/Ec) 20 mg PO QAM lisinopril 2.5 mg Tablet 2.5 mg PO QAM Marijuana 1 inh inhalation DAILY atorvastatin [Lipitor] 20 mg tablet 20 mg PO QAM gabapentin 100 mg Capsule 200 mg PO QAM Centrum Silver Tablet 1 tab PO QAM Discharge Orders: Discharge Order (Routine); Ordered 12/21/24 Ordered By: Ashly Min Admission Data Admit Date/Time: 12/20/24 10:09 Attending Provider: Efren Acosta Admit Provider: Efren Acosta Primary Care Provider: Mckay Marin Other Providers: Luis Alberto Reno; Sourav Hinojosa; Damian Costa; Caroline Minaya; Kofi Ovalle; Jemma Fields; Jovi Nguyen; Miguelina Sow
[2024-12-21 16:14] VITALS: BP 158/76; PULSE 82
--- NOTE | 2024-12-24 05:55 | Electrocardiogram Report ---
Test Reason : Blood Pressure : */* mmHG Vent. Rate : 84 BPM Atrial Rate : 84 BPM P-R Int : 190 ms QRS Dur : 138 ms QT Int : 392 ms P-R-T Axes : 63 -2 112 degrees QTcB Int : 463 ms Normal sinus rhythm Left bundle branch block Abnormal ECG When compared with ECG of 20-Dec-2024 15:40, No significant change was found Confirmed by Joesph Masters ([id number]) on 12/24/2024 5:54:45 AM Referred By: Efren Castrejon Confirmed By: Joesph Masters
== END 2024-12-21 16:55 | disposition home or self-care (01) | DRG 254 ==
LOC: ASU 08:54 → 1E 10:09
PROC: EV.TCAR (2024-12-20 10:20)